=== PATIENT | male | born 1935 | race Caucasian/White ===

== ENCOUNTER → 2017-02-05 | Outpatient (CLI) | payer OTHER, MEDICARE ==
[2017-02-05 08:47] LABS: CH 32.7; CHCM 35.4; HCT 40.2 % (39.0-53.0); HDW 2.94; HGB 14.1 gm/dL (13.0-17.5); MCH 32.6 pg (25.0-35.0); MCHC 35.1 g/dL (31.0-37.0); MCV 92.7 fL (80.0-100.0); Mean Platelet Volume 7.2; RBC 4.33 m/uL (4.30-5.90); RDW 13.2 % (11.5-15.5); WBC 6.6 k/uL (3.8-10.6)
[2017-02-05 08:48] LABS: Calcium 9.2 mg/dL (8.4-10.2); Potassium 4.5 mmol/L (3.5-5.1)
== END | disposition home or self-care (01) ==
LOC: LABWHC1 07:23
PROVIDERS: ATTEND Internal Medicine Interventional Cardiology
DX: N18.9 Chronic kidney disease, unspecified (principal)
CPT/HCPCS: 36415; 80048; 85027

== ENCOUNTER 2017-02-08 11:02 | Inpatient (IN) | payer OTHER, MEDICARE ==
--- NOTE | 2017-02-08 11:42 | XR ---
EXAMINATION TYPE: XR abdomen 2V DATE OF EXAM: 02/08/2017 11:34 AM CLINICAL HISTORY: Constipation for 4 days with bloating and abdominal pain. TECHNIQUE: Single supine KUB image of the abdomen is obtained. COMPARISON: None. FINDINGS: Differential air-fluid levels are noted within gaseous and dilated loops of large bowel star suring up to 9.1 cm near the splenic flexure. Scattered air is seen within nondilated small bowel. No air is noted within the rectum or distal sigmoid colon. Dehiscence of the most inferior sternotomy wire is noted. Phleboliths are seen within the low pelvis. Degenerative changes of the lumbosacral spine and femoral acetabular joints are seen. IMPRESSION: Gaseous dilation of large bowel containing differential air-fluid levels. Findings may re late to adynamic colonic ileus versus bowel obstruction as no air is visualized within the rectal vau lt.
[2017-02-08] MEDS ORDERED: SODIUM CHLORIDE 0.9% 1,000 ML IV STA (12:29)
[2017-02-08] MEDS ORDERED: SODIUM CHLORIDE 0.9% 500 ML IV STA (12:29)
[2017-02-08 13:21] LABS: Basophils % (A) 0 %; CH 33.4; CHCM 36.6; Eosinophils % (A) 1 %; HCT 40.1 % (39.0-53.0); HDW 2.95; HGB 14.6 gm/dL (13.0-17.5); Luc # (Auto) 0.22; Luc % (Auto) 2; Lymphocytes # (A) 1.2 k/uL (1.0-4.8); Lymphocytes % (A) 13 %; MCH 33.5 pg (25.0-35.0); MCHC 36.5 g/dL (31.0-37.0); MCV 91.7 fL (80.0-100.0); Mean Platelet Volume 7.2; Monocytes # (A) 0.7 k/uL (0-1.0); Monocytes % (A) 8 %; Neutrophils # (A) 6.7 k/uL (1.3-7.7); Neutrophils % (A) 75 %; RBC 4.37 m/uL (4.30-5.90); RDW 13.5 % (11.5-15.5); WBC 8.8 k/uL (3.8-10.6); WBC (Perox) 9.02
[2017-02-08 13:31] LABS: INR 2.3 (<1.2); Prothrombin Time 22.1 sec (9.0-12.0)
[2017-02-08 13:33] LABS: Amylase 34 U/L (30-110); Anion Gap 9 mmol/L; Calcium 9.4 mg/dL (8.4-10.2); Carbon Dioxide 23 mmol/L (22-30); Chloride 104 mmol/L (98-107); Glucose 102 mg/dL (74-99); Non-African American GFR(MDRD) >60 (>60 ml/min/1.73 sqM); Sodium 136 mmol/L (137-145); Total Bilirubin 1.2 mg/dL (0.2-1.3); Total Protein 6.7 g/dL (6.3-8.2)
[2017-02-08 13:47] LABS: Appearance,Urine Cloudy (Clear); Bilirubin,Urine 1+ (Negative); Glucose,Urine (UA) Negative (Negative); Ketones,Urine 1+ (Negative); Leukocyte Esterase,Urine Negative (Negative); Mucus,Urine Many /hpf; Nitrite,Urine Negative (Negative); PH, Urine 5.5 (5.0-8.0); Particle Count 8425; Protein,Urine Trace (Negative); UA Billing (MACRO vs. MICRO) MICRO; WBC,Urine 1 /hpf (0-5)
[2017-02-08 14:08] LABS: Blood Urea Nitrogen 16 mg/dL (9-20); Potassium 4.9 mmol/L (3.5-5.1)
[2017-02-08 14:09] LABS: ALT 26 U/L (21-72); AST 32 U/L (17-59); Alkaline Phosphatase 65 U/L (38-126)
--- NOTE | 2017-02-08 14:49 | ED ---
General Adult HPI - General Chief complaint: Abdominal Pain Stated complaint: CONSTIPATION Time Seen by Provider: 02/08/17 11:14 Source: patient, family, RN notes reviewed Mode of arrival: wheelchair Limitations: no limitations - History of Present Illness Initial comments: Chief complaint history of present illness this is an 81-year-old male here with family. 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 Patient reports last bowel movement was 5 days ago. Since then he had a fleets enema yesterday and only this fleets enema came out possible very small amount of gas and stool. He's not had any bowel gas since then. Patient is not complaining of abdominal pain. He is significantly bloated. Decreased appetite. Not able to eat or drink anything. - Related Data Home Medications Medication Instructions Recorded Confirmed Aspirin EC [Ecotrin Low Dose] 81 mg PO DAILY 01/15/16 02/08/17 Furosemide [Lasix] 40 mg PO DAILY 01/15/16 02/08/17 Losartan [Cozaar] 50 mg PO DAILY 01/15/16 02/08/17 Pravastatin Sodium [Pravachol] 40 mg PO DAILY 01/15/16 02/08/17 Metoprolol Tartrate [Lopressor] 50 mg PO DAILY 02/08/17 02/08/17 Nitroglycerin Sl Tabs [Nitrostat] 0.4 mg SUBLINGUAL Q5M PRN 02/08/17 02/08/17 Spironolactone [Aldactone] 25 mg PO DAILY 02/08/17 02/08/17 Warfarin [Coumadin] 5 mg PO SUWESA 02/08/17 02/08/17 Warfarin [Coumadin] 7.5 mg PO MOTUTHFR 02/08/17 02/08/17 Previous Rx's Medication Instructions Recorded Meclizine [Antivert] 25 mg PO TID PRN #0 tab 01/16/16 Allergies Allergy/AdvReac Type Severity Reaction Status Date / Time morphine Allergy Anaphylaxis Verified 02/08/17 12:01 Sulfa (Sulfonamide Allergy Anaphylaxis Verified 02/08/17 12:01 Antibiotics) Review of Systems ROS Statement: Those systems with pertinent positive or pertinent negative responses have been documented in the HPI. Review of systems no complaint of headache chest pain or shortness of breath. The patient has significantly bloated abdomen. Patient reports this happened several times in the past but usually days or so after having had surgery on the medications associated with that he's not had any surgery since last March. The only abdominal surgery the patient's had his appendectomy many decades ago. Otherwise patient's denying any neuro deficits. All systems are reviewed. Past medical problems coronary artery disease with 3 or 4 past MIs, is also had a TIA, CHF, CVA most was resolved other TIAs. Hyperlipidemia, hypertension. The patient also has prostate cancer for the past 3 years and this is just being watched because of his advanced age. The patient's surgeries include appendectomy, coronary bypass, multiple heart catheterizations with 10 stents. Patient has ALLERGIES to sulfa and morphine. He quit smoking over 50 years ago denies alcohol use. ROS Other: All systems not noted in ROS Statement are negative. 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 Last Myocardial Infarction Date:: 2001 History of Any Multi-Drug Resistant Organisms: None Reported Past Surgical History: Appendectomy, Coronary Bypass/CABG, Heart Catheterization With Stent Additional Past Surgical History / Comment(s): 10 PLUS STENTS, 1988 CABG with 3 vessel bypass, hemorrhoidectomy, multiple back surgeries, back epidural injections, L eye laser sx due to "something burst in that eye", Past Anesthesia/Blood Transfusion Reactions: No Reported Reaction Date of Last Stent Placement:: 2008 Past Psychological History: Depression Smoking Status: Former smoker Past Alcohol Use History: Occasional Past Drug Use History: None Reported - Past Family History Father Family Medical History: Myocardial Infarction (MT) Additional Family Medical History / Comment(s): Father of a MT in his 40' s. Pt's grandfather on his dad's side in his 40's of a MT Mother Family Medical History: Coronary Artery Disease (CAD) Additional Family Medical History / Comment(s): Mother lived into her 90's. General Exam - General Exam Comments Initial Comments: General: The patient is awake and alert, in no distress, and does not appear acutely ill. Sent here because of no bowel movement for 4 days. The patient significantly bloated but not complaining of abdominal pain. He's not had much to eat or drink since yesterday. Vital signs temperature 97.0 pulse 88 respiratory rate 16 pulse ox 98% room air blood pressure 146/79 Eye: Pupils are equal, round and reactive to light, extra-ocular movements are intact ; there is normal conjunctiva bilaterally. No signs of icterus. Ears, nose, mouth and throat: There are moist mucous membranes and no oral lesions. Neck: The neck is supple, there is no tenderness Cardiovascular: There is a regular rate and rhythm. No murmur, rub or gallop is appreciated. Respiratory: Lungs are clear to auscultation, respirations are non-labored, breath sounds are equal. No wheezes, stridor, rales, or rhonchi. Gastrointestinal: Giving only distended. Tympanitic. No bowel sounds appreciated. Back: No back pain Musculoskeletal: Normal ROM, no tenderness, There is no pedal edema. There is no calf tenderness or swelling. Sensation intact. Pulses equal bilaterally 2+. The mother last week and significant edema today. Neurological: CN II-XII intact, There are no obvious motor or sensory deficits. Coordination appears grossly intact. Speech is normal. Skin: Skin is warm and dry and no rashes or lesions are noted. Limitations: no limitations Course Vital Signs 02/08/17 02/08/17 11:03 13:46 Temperature 97.0 F L 97.7 F Pulse Rate 88 69 Respiratory 16 18 Rate Blood Pressure 146/79 141/71 O2 Sat by Pulse 98 98 Oximetry Medical Decision Making - Medical Decision Making Medical decision making the patient's white count 8.8 hemoglobin 14 hematocrit of 40 with an INR 2.3. Potassium 4.9 with a BUN 16 creatinine 1.10 the GFR greater than 60. Glucose 12. Urine is clean no signs of infection. I asked the family if they would allow Dr. dr eubanks to evaluate the x-rays while in emergency room they said that was okay. Dr. Argueta he reviewed the x- rays showing evidence of atonic ileus or obstruction. He recommends patient be admitted. NG tube. He was also asked patient to have an enema which the patient states has worked in the past and that will be performed. The patient be then admitted to his service. The NG tube. The patient states at this time under no circumstances would allow an NG tube as she's had them in the past month or 2 irritating and painful he has not wanted. Currently no nausea no vomiting. - Lab Data Result diagrams: 02/08/17 12:50 02/08/17 12:50 Lab Results 02/08/17 02/08/17 02/08/17 Range/Units 12:50 12:50 12:50 WBC 8.8 (3.8-10.6) k/uL RBC 4.37 (4.30-5.90) m/uL Hgb 14.6 (13.0-17.5) gm/dL Hct 40.1 (39.0-53.0) % MCV 91.7 (80.0-100.0) fL MCH 33.5 (25.0-35.0) pg MCHC 36.5 (31.0-37.0) g/dL RDW 13.5 (11.5-15.5) % Plt Count 216 (150-450) k/uL Neutrophils % 75 % Lymphocytes % 13 % Monocytes % 8 % Eosinophils % 1 % Basophils % 0 % Neutrophils # 6.7 (1.3-7.7) k/uL Lymphocytes # 1.2 (1.0-4.8) k/uL Monocytes # 0.7 (0-1.0) k/uL Eosinophils # 0.0 (0-0.7) k/uL Basophils # 0.0 (0-0.2) k/uL PT (9.0-12.0) sec INR (<1.2) Sodium 136 L (137-145) mmol/L Potassium 4.9 (3.5-5.1) mmol/L Chloride 104 (98-107) mmol/L Carbon Dioxide 23 (22-30) mmol/L Anion Gap 9 mmol/L BUN 16 (9-20) mg/dL Creatinine 1.01 (0.66-1.25) mg/dL Est GFR (MDRD) Af Amer >60 (>60 ml/min/1.73 sqM) Est GFR (MDRD) Non-Af >60 (>60 ml/min/1.73 sqM) Glucose 102 H (74-99) mg/dL Plasma Lactic Acid Sergio 1.2 (0.7-2.0) mmol/L Calcium 9.4 (8.4-10.2) mg/dL Total Bilirubin 1.2 (0.2-1.3) mg/dL AST 32 (17-59) U/L ALT 26 (21-72) U/L Alkaline Phosphatase 65 (38-126) U/L Total Protein 6.7 (6.3-8.2) g/dL Albumin 4.1 (3.5-5.0) g/dL Amylase 34 (30-110) U/L Lipase 75 (23-300) U/L Urine Color Urine Appearance (Clear) Urine pH (5.0-8.0) Ur Specific [place] (1.001-1.035) Urine Protein (Negative) Urine Glucose (UA) (Negative) Urine Ketones (Negative) Urine Blood (Negative) Urine Nitrite (Negative) Urine Bilirubin (Negative) Urine Urobilinogen (<2.0) mg/dL Ur Leukocyte Esterase (Negative) Urine WBC (0-5) /hpf Hyaline Casts (0-2) /lpf Urine Mucus (None) /hpf 02/08/17 02/08/17 Range/Units 12:50 13:32 WBC (3.8-10.6) k/uL RBC (4.30-5.90) m/uL Hgb (13.0-17.5) gm/dL Hct (39.0-53.0) % MCV (80.0-100.0) fL MCH (25.0-35.0) pg MCHC (31.0-37.0) g/dL RDW (11.5-15.5) % Plt Count (150-450) k/uL Neutrophils % % Lymphocytes % % Monocytes % % Eosinophils % % Basophils % % Neutrophils # (1.3-7.7) k/uL Lymphocytes # (1.0-4.8) k/uL Monocytes # (0-1.0) k/uL Eosinophils # (0-0.7) k/uL Basophils # (0-0.2) k/uL PT 22.1 H (9.0-12.0) sec INR 2.3 H (<1.2) Sodium (137-145) mmol/L Potassium (3.5-5.1) mmol/L Chloride (98-107) mmol/L Carbon Dioxide (22-30) mmol/L Anion Gap mmol/L BUN (9-20) mg/dL Creatinine (0.66-1.25) mg/dL Est GFR (MDRD) Af Amer (>60 ml/min/1.73 sqM) Est GFR (MDRD) Non-Af (>60 ml/min/1.73 sqM) Glucose (74-99) mg/dL Plasma Lactic Acid Sergio (0.7-2.0) mmol/L Calcium (8.4-10.2) mg/dL Total Bilirubin (0.2-1.3) mg/dL AST (17-59) U/L ALT (21-72) U/L Alkaline Phosphatase (38-126) U/L Total Protein (6.3-8.2) g/dL Albumin (3.5-5.0) g/dL Amylase (30-110) U/L Lipase (23-300) U/L Urine Color Yellow Urine Appearance Cloudy (Clear) Urine pH 5.5 (5.0-8.0) Ur Specific [place] 1.020 (1.001-1.035) Urine Protein Trace H (Negative) Urine Glucose (UA) Negative (Negative) Urine Ketones 1+ H (Negative) Urine Blood Negative (Negative) Urine Nitrite Negative (Negative) Urine Bilirubin 1+ H (Negative) Urine Urobilinogen 2.0 (<2.0) mg/dL Ur Leukocyte Esterase Negative (Negative) Urine WBC 1 (0-5) /hpf Hyaline Casts 4 H (0-2) /lpf Urine Mucus Many H (None) /hpf Disposition Clinical Impression: Abdominal pain Disposition: ADMITTED IP TO THIS HOSP Condition: Fair Referrals: None,Stated [Primary Care Provider] - 1-2 days
[2017-02-08] MEDS ORDERED: NALOXONE 0.4 MG/ML 1 ML VIAL IV PRN (14:52)
[2017-02-08] MEDS ORDERED: MECLIZINE 25 MG TAB PO PRN (18:44)
[2017-02-08] MEDS: SODIUM CHLORIDE 0.9% 1,000 ML IV SCH (19:54)
[2017-02-09] MEDS: SODIUM CHLORIDE 0.9% 1,000 ML IV SCH ×3 (03:03→16:38)
[2017-02-09 07:48] LABS: Basophils % (A) 0 %; CH 33.4; CHCM 35.3; Eosinophils % (A) 1 %; HCT 40.6 % (39.0-53.0); HGB 13.8 gm/dL (13.0-17.5); Luc # (Auto) 0.15; Luc % (Auto) 2; Lymphocytes # (A) 0.8 k/uL (1.0-4.8); Lymphocytes % (A) 11 %; MCH 32.4 pg (25.0-35.0); MCV 95.3 fL (80.0-100.0); Mean Platelet Volume 7.4; Monocytes # (A) 0.6 k/uL (0-1.0); Monocytes % (A) 8 %; Neutrophils # (A) 5.8 k/uL (1.3-7.7); Neutrophils % (A) 78 %; RBC 4.26 m/uL (4.30-5.90); WBC 7.4 k/uL (3.8-10.6); WBC (Perox) 7.07
[2017-02-09 08:16] LABS: ALT 31 U/L (21-72); AST 18 U/L (17-59); Alkaline Phosphatase 64 U/L (38-126); Anion Gap 11 mmol/L; Blood Urea Nitrogen 14 mg/dL (9-20); Calcium 8.9 mg/dL (8.4-10.2); Carbon Dioxide 20 mmol/L (22-30); Chloride 109 mmol/L (98-107); Glucose 94 mg/dL (74-99); Non-African American GFR(MDRD) >60 (>60 ml/min/1.73 sqM); Potassium 3.7 mmol/L (3.5-5.1); Sodium 140 mmol/L (137-145); Total Bilirubin 0.9 mg/dL (0.2-1.3); Total Protein 5.7 g/dL (6.3-8.2)
[2017-02-09] MEDS ORDERED: BENZOCAINE SPRAY 1 SPRAY CAN ONE (08:44)
[2017-02-09] MEDS ORDERED: LOSARTAN 50 MG TAB PO SCH (09:00)
[2017-02-09] MEDS ORDERED: FUROSEMIDE 40 MG TAB PO SCH (09:00)
[2017-02-09] MEDS: METOPROLOL TARTRATE 50 MG TAB PO SCH (09:30)
[2017-02-09] MEDS: PRAVASTATIN SODIUM 40 MG TAB PO SCH (09:31)
[2017-02-09] MEDS: SPIRONOLACTONE 25 MG TAB PO SCH (09:31)
[2017-02-09 10:44] VITALS: BMI 34.2
[2017-02-09] MEDS ORDERED: LIDOCAINE 4% LTA KIT (4 ML) TOPICAL ONE (10:59)
[2017-02-09] MEDS ORDERED: IOHEXOL 350 MG/ML 25 ML BOTTLE (ORAL USE) PO PRN (11:04)
[2017-02-09] MEDS ORDERED: RX INFO: IV CONTRAST WAS GIVEN 1 EACH MISC MISCELLANE PRN (11:04)
[2017-02-09] MEDS ORDERED: BENZOCAINE SPRAY 1 SPRAY CAN MUCOUS MEM PRN (11:07)
[2017-02-09] MEDS ORDERED: LIDOCAINE VISCOUS 2% 15 ML CUP MUCOUS MEM ONE (11:30)
--- NOTE | 2017-02-09 12:22 | P.GSHP ---
History of Present Illness H&P Date: 02/09/17 Chief Complaint: Abdominal pain 81-year-old male presented on the day of admission to the emergency room to be evaluated for abdominal distention with constipation no bowel movement in 4 days. Patient states that "the only thing that was new was 5 days ago he decided that he would start losing weight and put himself on a low-fat diet decreased his caloric intake noted after doing this that he hadn't had a bowel movement in days. 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 Patient additionally states that he did give himself a fleets enema the day before and only a small amount gas with a small stool came out no bowel movement since . Patient states he feels bloated with abdominal discomfort. Additionally patient states he has no appetite not been eating or drinking adequately last several days in the emergency room an abdominal x-ray was obtained findings suggest possible adynamic colonic ileus or bowel obstruction could not be ruled out Patient has a past medical history significant for coronary artery disease prior coronary artery bypass grafting with prior coronary stenting, with a recent in 2016 CVA involving the right frontal lobe,, hypertension, moderate pulmonary hypertension, carotid artery disease involving the right carotid. Prior surgical history multiple back surgeries, hemorrhoidectomy, coronary artery bypass grafting. - Review of Systems Comment: Essentially unremarkable except as mentioned in the present illness Past Medical History Past Medical History: Coronary Artery Disease (CAD), Cancer, Chest Pain / Angina , Heart Failure, CVA/TIA, Eye Disorder, Hyperlipidemia, Hypertension, Myocardial Infarction (HI), Osteoarthritis (OA) Additional Past Medical History / Comment(s): 2009 TIA, HI's-at least 5, prostate cancer being monitored-recent PSA was significantly elevated, chronic low back pain,"loss of vision lt eye" "something burst in that eye", cataracts bilateral rotator cuff dx, L hip disease, DJD. Last Myocardial Infarction Date:: 2001 History of Any Multi-Drug Resistant Organisms: None Reported Past Surgical History: Appendectomy, Coronary Bypass/CABG, Heart Catheterization With Stent Additional Past Surgical History / Comment(s): 10 PLUS STENTS, 1988 CABG with 3 vessel bypass, hemorrhoidectomy, multiple back surgeries, back epidural injections, L eye laser sx due to "something burst in that eye", rt carotid endarterectomy Past Anesthesia/Blood Transfusion Reactions: No Reported Reaction Date of Last Stent Placement:: 2008 Smoking Status: Former smoker - Past Family History Father Family Medical History: Myocardial Infarction (HI) Additional Family Medical History / Comment(s): Father of a HI in his 40' s. Pt's grandfather on his dad's side in his 40's of a HI Mother Family Medical History: Coronary Artery Disease (CAD) Additional Family Medical History / Comment(s): Mother lived into her 90's. Medications and Allergies Home Medications Medication Instructions Recorded Confirmed Type Aspirin EC [Ecotrin Low Dose] 81 mg PO DAILY 01/15/16 02/08/17 History Furosemide [Lasix] 40 mg PO DAILY 01/15/16 02/08/17 History Losartan [Cozaar] 50 mg PO DAILY 01/15/16 02/08/17 History Pravastatin Sodium [Pravachol] 40 mg PO DAILY 01/15/16 02/08/17 History Meclizine [Antivert] 25 mg PO TID PRN #0 tab 01/16/16 02/08/17 Rx Metoprolol Tartrate [Lopressor] 50 mg PO DAILY 02/08/17 02/08/17 History Nitroglycerin Sl Tabs [Nitrostat] 0.4 mg SUBLINGUAL Q5M PRN 02/08/17 02/08/17 History Spironolactone [Aldactone] 25 mg PO DAILY 02/08/17 02/08/17 History Warfarin [Coumadin] 5 mg PO SUWESA 02/08/17 02/08/17 History Warfarin [Coumadin] 7.5 mg PO MOTUTHFR 02/08/17 02/08/17 History Allergies Allergy/AdvReac Type Severity Reaction Status Date / Time morphine Allergy Anaphylaxis Verified 02/08/17 12:01 Sulfa (Sulfonamide Allergy Anaphylaxis Verified 02/08/17 12:01 Antibiotics) Surgical - Exam Vital Signs Temp Pulse Resp BP Pulse Ox 97.0 F L 88 16 146/79 98 02/08/17 11:03 02/08/17 11:03 02/08/17 11:03 02/08/17 11:03 02/08/17 11:03 GENERAL APPEARANCE: 81-year-old male patient is alert, oriented, in no acute distress continues to report having abdominal discomfort. VITAL SIGNS reviewed: HEENT: Head is normocephalic and atraumatic. Pupils are equal and reactive. The nares are patent. Oropharynx is clear without lesions. NECK: Supple without lymphadenopathy. Traches midline. HEART: S1, S2. Regular rate and rhythm. No murmur noted denying chest pain LUNGS: No crackles or wheezes are heard. Adequate air movement bilaterally sats on room air 98% ABDOMEN: Slight tenderness firm distended few hypoactive bowel tones No peritoneal signs. No palpable organomegaly or masses. EXTREMITIES: Normal skin color and turgor. No cyanosis, rash, bilateral nonpitting lower extremity edema. Radial pedal pulses are 2/4 bilaterally. NEUROLOGICAL: No focal deficits. Strength and sensation are grossly intact. Results - Labs 02/09/17 07:23 02/09/17 07:23 Abnormal Lab Results - Last 24 Hours (Table) 02/08/17 02/08/17 02/08/17 Range/Units 12:50 12:50 13:32 RBC (4.30-5.90) m/uL Lymphocytes # (1.0-4.8) k/uL PT 22.1 H (9.0-12.0) sec INR 2.3 H (<1.2) Sodium 136 L (137-145) mmol/L Chloride (98-107) mmol/L Carbon Dioxide (22-30) mmol/L Glucose 102 H (74-99) mg/dL Total Protein (6.3-8.2) g/dL Urine Protein Trace H (Negative) Urine Ketones 1+ H (Negative) Urine Bilirubin 1+ H (Negative) Hyaline Casts 4 H (0-2) /lpf Urine Mucus Many H (None) /hpf 02/09/17 02/09/17 Range/Units 07:23 07:23 RBC 4.26 L (4.30-5.90) m/uL Lymphocytes # 0.8 L (1.0-4.8) k/uL PT (9.0-12.0) sec INR (<1.2) Sodium (137-145) mmol/L Chloride 109 H (98-107) mmol/L Carbon Dioxide 20 L (22-30) mmol/L Glucose (74-99) mg/dL Total Protein 5.7 L (6.3-8.2) g/dL Urine Protein (Negative) Urine Ketones (Negative) Urine Bilirubin (Negative) Hyaline Casts (0-2) /lpf Urine Mucus (None) /hpf Microbiology - Last 24 Hours (Table) 02/08/17 13:32 Urine Culture - Preliminary Urine,Voided Diabetes panel 02/08/17 02/09/17 Range/Units 12:50 07:23 Sodium 136 L 140 (137-145) mmol/L Potassium 4.9 3.7 (3.5-5.1) mmol/L Chloride 104 109 H (98-107) mmol/L Carbon Dioxide 23 20 L (22-30) mmol/L BUN 16 14 (9-20) mg/dL Creatinine 1.01 0.99 (0.66-1.25) mg/dL Glucose 102 H 94 (74-99) mg/dL Calcium 9.4 8.9 (8.4-10.2) mg/dL AST 32 18 (17-59) U/L ALT 26 31 (21-72) U/L Alkaline Phosphatase 65 64 (38-126) U/L Total Protein 6.7 5.7 L (6.3-8.2) g/dL Albumin 4.1 3.5 (3.5-5.0) g/dL Calcium panel 02/08/17 02/09/17 Range/Units 12:50 07:23 Calcium 9.4 8.9 (8.4-10.2) mg/dL Albumin 4.1 3.5 (3.5-5.0) g/dL Pituitary panel 02/08/17 02/09/17 Range/Units 12:50 07:23 Sodium 136 L 140 (137-145) mmol/L Potassium 4.9 3.7 (3.5-5.1) mmol/L Chloride 104 109 H (98-107) mmol/L Carbon Dioxide 23 20 L (22-30) mmol/L BUN 16 14 (9-20) mg/dL Creatinine 1.01 0.99 (0.66-1.25) mg/dL Glucose 102 H 94 (74-99) mg/dL Calcium 9.4 8.9 (8.4-10.2) mg/dL Adrenal panel 02/08/17 02/09/17 Range/Units 12:50 07:23 Sodium 136 L 140 (137-145) mmol/L Potassium 4.9 3.7 (3.5-5.1) mmol/L Chloride 104 109 H (98-107) mmol/L Carbon Dioxide 23 20 L (22-30) mmol/L BUN 16 14 (9-20) mg/dL Creatinine 1.01 0.99 (0.66-1.25) mg/dL Glucose 102 H 94 (74-99) mg/dL Calcium 9.4 8.9 (8.4-10.2) mg/dL Total Bilirubin 1.2 0.9 (0.2-1.3) mg/dL AST 32 18 (17-59) U/L ALT 26 31 (21-72) U/L Alkaline Phosphatase 65 64 (38-126) U/L Total Protein 6.7 5.7 L (6.3-8.2) g/dL Albumin 4.1 3.5 (3.5-5.0) g/dL Assessment and Plan Plan: Impression Present on admission diffuse abdominal pain with bloating with constipation suspect likely due to an ileus not ruled out Obesity BMI 34 Known coronary artery disease with prior coronary artery bypass grafting History of a CVA 2015 no deficit Chronic diastolic heart failure no evidence of an exacerbation Moderate to severe pulmonary hypertension Known carotid artery disease right coronary Abdominal x-ray on admission findings suggest likely adynamic colonic ileus or bowel obstruction not ruled out Hypertension essential Plan Nasal gastric tube to be placed connected to suction intermittent patient has agreed Repeat fleets enema now CAT scan abdomen and pelvis 4 hour prep oral and IV contrast Repeat labs in the morning DVT and GI prophylaxis Hold Coumadin for now Consult cardiology and medicine service await further recommendations follow up on the pending CAT scan of the abdomen pelvis further recommendations pending studies The above impression and plan of care have been discussed and directed by signing physician. Elyssa Murray nurse practitioner acting as scribe for signing physician.
[2017-02-09] MEDS ORDERED: IOHEXOL 350 MG/ML 25 ML BOTTLE (ORAL USE) PO ONE (12:27)
[2017-02-09] MEDS: PANTOPRAZOLE 40 MG/10 ML VIAL IV SCH (12:37)
[2017-02-09] MEDS: HEPARIN SODIUM,PORCINE 5,000 UNIT/ML 1 ML VIAL SQ SCH ×2 (12:38→16:39)
[2017-02-09] MEDS ORDERED: SODIUM CHLORIDE 0.9% 1,000 ML IV SCH (14:15)
--- NOTE | 2017-02-09 18:01 | CT ---
EXAMINATION TYPE: CT abdomen pelvis w con DATE OF EXAM: 02/09/2017 COMPARISON: 05/06/2012 HISTORY: Abdominal pain and distention. CT DLP: 1713.50 mGycm Automated exposure control for dose reduction was used. TECHNIQUE: Helical acquisition of images was performed from the lung bases through the pelvis. CONTRAST: Performed with Oral Contrast and with IV Contrast, patient injected with 100 mL of Omnipaque 300. FINDINGS: Lung bases are clear of consolidation. There is no pleural effusion. Liver shows no focal defect. Spl een and pancreas appear normal. Gallbladder appears normal. Bile ducts are not dilated. There is no adrenal mass. There is mild symmetric renal cortical atrophy. There is a [address] on the lateral right kidney. There is no hydronephrosis. Abdominal aorta is atheromatous. There is no retroperitoneal adenopathy. There is no ascites. There are some gas and fluid-filled distended lo ops of large bowel in the mid abdomen. There is fluid down to the rectum. Bladder distends smoothly. There are prostatic calcifications. There is no sign of a pelvic mass. There is no sign of appendicit is. Small bowel has normal size. There is moderate multilevel spondylosis in the lumbar spine. There is multilevel laminectomy defect in the mid and lower lumbar spine. IMPRESSION: THERE IS EVIDENCE OF LARGE BOWEL ILEUS THAT IS NEW COMPARED TO OLD EXAM. LARGE BOWEL FLUID LEVELS CON SISTENT WITH DIARRHEA. NO FREE AIR. RIGHT RENAL CORTICAL CYST IS INCREASED COMPARED TO OLD CT SCAN. M ODERATE MULTILEVEL LUMBAR SPONDYLOSIS. THE ENTIRE LIVER IS NOT INCLUDED ON THE EXAM. MILD CARDIOMEGAL Y.
[2017-02-10] MEDS: HEPARIN SODIUM,PORCINE 5,000 UNIT/ML 1 ML VIAL SQ SCH ×4 (00:32→23:40)
[2017-02-10 07:47] LABS: Basophils % (A) 0 %; CH 33.7; Eosinophils % (A) 0 %; HCT 41.2 % (39.0-53.0); HDW 2.96; HGB 14.2 gm/dL (13.0-17.5); Luc % (Auto) 3; Lymphocytes # (A) 1.1 k/uL (1.0-4.8); Lymphocytes % (A) 14 %; MCH 32.5 pg (25.0-35.0); MCHC 34.5 g/dL (31.0-37.0); MCV 94.2 fL (80.0-100.0); Mean Platelet Volume 7.9; Monocytes # (A) 0.8 k/uL (0-1.0); Monocytes % (A) 10 %; Neutrophils # (A) 5.8 k/uL (1.3-7.7); Neutrophils % (A) 73 %; RBC 4.38 m/uL (4.30-5.90); RDW 14.5 % (11.5-15.5); WBC (Perox) 7.78
[2017-02-10 08:01] LABS: ALT 31 U/L (21-72); AST 19 U/L (17-59); Alkaline Phosphatase 71 U/L (38-126); Anion Gap 12 mmol/L; Blood Urea Nitrogen 14 mg/dL (9-20); Carbon Dioxide 19 mmol/L (22-30); Chloride 109 mmol/L (98-107); Glucose 81 mg/dL (74-99); Non-African American GFR(MDRD) >60 (>60 ml/min/1.73 sqM); Potassium 3.2 mmol/L (3.5-5.1); Sodium 140 mmol/L (137-145); Total Bilirubin 0.9 mg/dL (0.2-1.3)
[2017-02-10] MEDS: PANTOPRAZOLE 40 MG/10 ML VIAL IV SCH (08:01)
[2017-02-10] MEDS: SODIUM CHLORIDE 0.9% 1,000 ML IV SCH (08:01)
[2017-02-10] MEDS ORDERED: FUROSEMIDE 40 MG TAB PO SCH (09:00)
--- NOTE | 2017-02-10 09:42 | P.CRDCN ---
History of Present Illness Consult date: 02/09/17 History of present illness: This is an 81-yr-old male with past medical history significant for CAD with CABG in 1988 PHELAN-LAD, SVG-RCA and SVG-LCX, HTN, HLD, atrial fibrillation on jail anticoagulation with coumadin, systolic heart failure, CVA and obesity. He presents to the hospital with c/o increased abdominal distention, pain and constipation x4 days. He states he really started feeling poorly on Wednesday of last week with decreased appetite. Over the past few days his only oral intake was water and yogurt. He has no PCP but follows very regularly with Dr. Madrid. He saw him in the office yesterday and was advised to come to the hospital for further evaluation of his abdomen. His cardiac medications include aldactone 25mg daily, aspirin 81mg daily, lasix 40mg daily, losartan 50mg daily , metoprolol 50mg daily, pravastatin 40mg daily and coumadin 5mg daily. His most recent echo was done in the office 11/2016 reveals impaired LV function with ejection fraction 40%. Lexiscan performed 10/2016 indicates small area of anterior ischemia. Last cath 2004 showed patent PHELAN-LAD, occluded SVG-RCA and LCX. At that time he underwent stenting of distal left main and proximal ramus. EKG has been ordered. Review of Systems Extensive ROS complete, negative except listed in HPI. Past Medical History Past Medical History: Coronary Artery Disease (CAD), Cancer, Chest Pain / Angina , Heart Failure, CVA/TIA, Eye Disorder, Hyperlipidemia, Hypertension, Myocardial Infarction ([place]), Osteoarthritis (OA) Additional Past Medical History / Comment(s): 2009 TIA, [place]'s-at least 5, prostate cancer being monitored-recent PSA was significantly elevated, chronic low back pain,"loss of vision lt eye" "something burst in that eye", cataracts bilateral rotator cuff dx, L hip disease, DJD. Last Myocardial Infarction Date:: 2001 History of Any Multi-Drug Resistant Organisms: None Reported Past Surgical History: Appendectomy, Coronary Bypass/CABG, Heart Catheterization With Stent Additional Past Surgical History / Comment(s): 10 PLUS STENTS, 1988 CABG with 3 vessel bypass, hemorrhoidectomy, multiple back surgeries, back epidural injections, L eye laser sx due to "something burst in that eye", rt carotid endarterectomy Past Anesthesia/Blood Transfusion Reactions: No Reported Reaction Date of Last Stent Placement:: 2008 Smoking Status: Former smoker - Past Family History Father Family Medical History: Myocardial Infarction ([place]) Additional Family Medical History / Comment(s): Father of a [place] in his 40' s. Pt's grandfather on his dad's side in his 40's of a [place] Mother Family Medical History: Coronary Artery Disease (CAD) Additional Family Medical History / Comment(s): Mother lived into her 90's. Medications and Allergies Home Medications Medication Instructions Recorded Confirmed Type Aspirin EC [Ecotrin Low Dose] 81 mg PO DAILY 01/15/16 02/08/17 History Furosemide [Lasix] 40 mg PO DAILY 01/15/16 02/08/17 History Losartan [Cozaar] 50 mg PO DAILY 01/15/16 02/08/17 History Pravastatin Sodium [Pravachol] 40 mg PO DAILY 01/15/16 02/08/17 History Meclizine [Antivert] 25 mg PO TID PRN #0 tab 01/16/16 02/08/17 Rx Metoprolol Tartrate [Lopressor] 50 mg PO DAILY 02/08/17 02/08/17 History Nitroglycerin Sl Tabs [Nitrostat] 0.4 mg SUBLINGUAL Q5M PRN 02/08/17 02/08/17 History Spironolactone [Aldactone] 25 mg PO DAILY 02/08/17 02/08/17 History Warfarin [Coumadin] 5 mg PO SUWESA 02/08/17 02/08/17 History Warfarin [Coumadin] 7.5 mg PO MOTUTHFR 02/08/17 02/08/17 History Allergies Allergy/AdvReac Type Severity Reaction Status Date / Time morphine Allergy Anaphylaxis Verified 02/08/17 12:01 Sulfa (Sulfonamide Allergy Anaphylaxis Verified 02/08/17 12:01 Antibiotics) Physical Exam Vitals: Vital Signs Temp Pulse Pulse Resp BP BP Pulse Ox 02/09/17 08:56 98 02/09/17 07:00 97.6 F 91 16 144/80 95 02/09/17 00:20 97.0 F L 86 16 126/59 96 02/09/17 00:18 97.0 F L 86 16 126/59 96 02/08/17 19:59 97.1 F L 81 16 132/71 96 02/08/17 16:19 97.5 F L 73 16 166/90 99 02/08/17 15:03 78 19 123/67 94 L Intake and Output 02/08/17 02/09/17 02/09/17 22:59 06:59 14:59 Intake Total 250 800 Balance 250 800 Intake: Intake, IV Titration 800 Amount Sodium Chloride 0.9% 1, 800 000 ml @ 100 mls/hr IV . Q10H [facility] Rx#:[id number] Oral 250 Other: # Voids 1 # Bowel Movements 1 Weight 111.13 kg Patient Weight 02/10/17 06:59 Weight 111.13 kg GENERAL: This is a 81-year-old male in no apparent distress at the time of my examination. Flat affect, guarded due to NG discomfort. HEENT: Head is atraumatic, normocephalic. Pupils are equal, round. Sclerae anicteric. Conjunctivae are clear. Mucous membranes of the mouth are moist. Neck is supple. There is no jugular venous distention. No carotid bruit is heard. NG tube in place. LUNGS: Clear to auscultation no wheezes, rales or rhonchi. No chest wall tenderness is noted on palpation or with deep breathing. HEART: Regular rate and rhythm without murmurs, rubs or gallops. S1 and S2 heard. ABDOMEN: Firm, distended, tympanic, nontender. EXTREMITIES: 1+ peripheral pulses with evidence of b/l 1+ pitting lower extremity edema and no calf tenderness noted. All 10 digits on hands appear swollen. Pt states they are more so than usual and tight feeling. NEUROLOGIC: Patient is awake, alert and oriented x3. Results 02/10/17 06:56 02/10/17 06:56 Cardiac Enzymes 02/09/17 Range/Units 07:23 AST 18 (17-59) U/L CBC 02/09/17 Range/Units 07:23 WBC 7.4 (3.8-10.6) k/uL RBC 4.26 L (4.30-5.90) m/uL Hgb 13.8 (13.0-17.5) gm/dL Hct 40.6 (39.0-53.0) % Plt Count 201 (150-450) k/uL Comprehensive Metabolic Panel 02/09/17 Range/Units 07:23 Sodium 140 (137-145) mmol/L Potassium 3.7 (3.5-5.1) mmol/L Chloride 109 H (98-107) mmol/L Carbon Dioxide 20 L (22-30) mmol/L BUN 14 (9-20) mg/dL Creatinine 0.99 (0.66-1.25) mg/dL Glucose 94 (74-99) mg/dL Calcium 8.9 (8.4-10.2) mg/dL AST 18 (17-59) U/L ALT 31 (21-72) U/L Alkaline Phosphatase 64 (38-126) U/L Total Protein 5.7 L (6.3-8.2) g/dL Albumin 3.5 (3.5-5.0) g/dL Current Medications Generic Name Dose Route Start Last Admin Trade Name Freq PRN Reason Stop Dose Admin Benzocaine 1 spray 02/09/17 11:07 02/09/17 12:36 Hurricaine [place] MUCOUS MEM 1 spray QID PRN Administration Mouth Irritation Heparin Sodium (Porcine) 5,000 unit 02/09/17 11:15 02/09/17 12:38 Heparin SQ 5,000 unit Q8HR [facility] Administration Sodium Chloride 1,000 mls @ 100 mls/hr 02/09/17 14:15 Saline 0.9% IV .Q10H [facility] Iohexol 25 ml 02/09/17 11:04 02/09/17 12:59 Omnipaque 350 Mg/Ml (For Oral Use) PO 02/10/17 11:06 25 ml Q60M PRN Administration CT Scan Meclizine HCl 25 mg 02/08/17 18:44 Antivert PO TID PRN dizziness Metoprolol Tartrate 50 mg 02/09/17 09:00 02/09/17 09:30 Lopressor PO 50 mg DAILY MIKAL Administration Miscellaneous Information 1 each 02/09/17 11:04 Rx Info: Iv Contrast Was Given MISCELLANE 02/11/17 11:06 DAILY PRN Per Protocol Naloxone HCl 0.2 mg 02/08/17 14:52 Narcan IV Q2M PRN Opioid Reversal Pantoprazole Sodium 40 mg 02/09/17 09:00 02/09/17 12:37 Protonix IV 40 mg DAILY MIKAL Administration Pravastatin Sodium 40 mg 02/09/17 09:00 02/09/17 09:31 Pravachol PO 40 mg DAILY MIKAL Administration Spironolactone 25 mg 02/09/17 09:00 02/09/17 09:31 Aldactone PO 25 mg DAILY MIKAL Administration Intake and Output 02/08/17 02/09/17 02/09/17 22:59 06:59 14:59 Intake Total 250 800 Balance 250 800 Intake: Intake, IV Titration 800 Amount Sodium Chloride 0.9% 1, 800 000 ml @ 100 mls/hr IV . Q10H [facility] Rx#:[id number] Oral 250 Other: # Voids 1 # Bowel Movements 1 Weight 111.13 kg Patient Weight 02/10/17 06:59 Weight 111.13 kg 02/09/17 07:23 02/09/17 07:23 EKG Interpretations (text) pending Assessment and Plan Plan: ASSESSMENT 1. Ileus vs bowel obstruction, surgery evaluating the patient. 2. Chronic persistent atrial fibrillation on jail anticoagulation 3. Known CAD with history of CABG 4. Chronic systolic heart failure 5. Essential hypertension 6. Dyslipidemia 7. Obesity PLAN Pt is actively passing gas and just had large bowel movement. Medications given PO route are optimal, if surgery requires strict NPO we can change to IV route. Continue to hold coumadin in case of impending surgery, restart as soon as is safely possible. IV fluids should be decreased to 50cc/hr to avoid fluid overload. Thank you kindly for this consultation. Further recommendations will be based upon clinical course. Nurse Practitioner note has been reviewed, I agree with a documented findings and plan of care. Patient was seen and examined.
--- NOTE | 2017-02-10 10:13 | P.PN ---
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 He presents to the hospital with c/o increased abdominal distention, pain and constipation x4 days. He states he really started feeling poorly on Wednesday of last week with decreased appetite. Over the past few days his only oral intake was water and yogurt. He has no PCP but follows very regularly with Dr. Madrid. He saw him in the office yesterday and was advised to come to the hospital for further evaluation of his abdomen. His cardiac medications include aldactone 25mg daily, aspirin 81mg daily, lasix 40mg daily, losartan 50mg daily , metoprolol 50mg daily, pravastatin 40mg daily and coumadin 5mg daily. His most recent echo was done in the office 11/2016 reveals impaired LV function with ejection fraction 40%. Lexiscan performed 10/2016 indicates small area of anterior ischemia. Last cath 2004 showed patent PHELAN-LAD, occluded SVG-RCA and LCX. At that time he underwent stenting of distal left main and proximal ramus. He is being seen today in follow-up. He is continuing to have small stools throughout the night. His abdomen still appears distended and firm. He states surgery plans to attempt to clamp NG tube today for trial. He continues to deny chest pain, palpitations, shortness of breath or dizziness. Objective - Vital Signs Vital signs: Vital Signs Temp 97.9 F 02/10/17 06:57 Pulse 78 02/10/17 06:57 Resp 16 02/10/17 07:45 BP 135/69 02/10/17 06:57 Pulse Ox 98 02/10/17 06:57 Intake & Output 02/09/17 02/10/17 02/10/17 18:59 06:59 18:59 Intake Total 800 Output Total 970 Balance -170 Weight 111.13 kg Intake: Intake, IV Titration 800 Amount Sodium Chloride 0.9% 1, 800 000 ml @ 50 mls/hr IV . Q20H [facility] Rx#:[id number] Output: Gastric Drainage 420 Urine 550 Other: # Voids 3 1 - Exam GENERAL: Well-appearing, well-nourished and in no acute distress. NECK: Supple without JVD or thyromegaly. LUNGS: Breath sounds clear to auscultation bilaterally. Respiration equal and unlabored. No wheezes, rales or rhonchi. HEART: Regular rate and rhythm without murmurs, rubs or gallops. S1 and S2 heard. EXTREMITIES: 1+ peripheral pulses with evidence of b/l 1+ pitting lower extremity edema and no calf tenderness noted. Swelling of the fingers is showing mild improvement. - Labs CBC & Chem 7: 02/10/17 06:56 02/10/17 06:56 Labs: Abnormal Lab Results - Last 24 Hours (Table) 02/10/17 Range/Units 06:56 Potassium 3.2 L (3.5-5.1) mmol/L Chloride 109 H (98-107) mmol/L Carbon Dioxide 19 L (22-30) mmol/L Total Protein 6.0 L (6.3-8.2) g/dL Microbiology - Last 24 Hours (Table) 02/08/17 13:32 Urine Culture - Final Urine,Voided Assessment and Plan Plan: ASSESSMENT 1. Ileus vs bowel obstruction, surgery evaluating the patient. 2. Chronic persistent atrial fibrillation on mcc anticoagulation 3. Known CAD with history of CABG 4. Chronic systolic heart failure 5. Essential hypertension 6. Dyslipidemia 7. Obesity PLAN Pt is actively passing gas and having small bowel movements. Continue with medical management. Will hold lasix today. Further recommendations will be based upon clinical course. Nurse Practitioner note has been reviewed, I agree with a documented findings and plan of care. Patient was seen and examined.
--- NOTE | 2017-02-10 12:13 | P.CONS ---
History of Present Illness - Reason for Consult Consult date: 02/10/17 History of congestive heart failure chronic diastolic dysfunction, hyperten - History of Present Illness Patient is a pleasant 81-year-old gentleman was admitted for partial small bowel resection secondary to constipation. Patient is admitted to surgical service medicine was consulted regarding recommendations for IV fluids considering his history of congestive heart failure. Patient is getting Lasix prolactin on at this time and patient is on long-term anticoagulation with Coumadin for atrial fibrillation patient has chronic diastolic dysfunction and normal ejection fraction during last admission. Patient is not in heart failure exacerbation and had NG tube output of about a liter 2 L and half because of which patient will be started on cautious hydration with lactated Ringer's. Since Coumadin is for atrial fibrillation can hold Coumadin temporarily as patient is nothing by mouth or else patient can be started on Coumadin Review of Systems REVIEW OF SYSTEMS: CONSTITUTIONAL: No fever, no malaise, no fatigue. HEENT: No recent visual problems or hearing problems. Denied any sore throat. CARDIOVASCULAR: No chest pain, orthopnea, PND, no palpitations, no syncope. PULMONARY: No shortness of breath, no cough, no hemoptysis. GASTROINTESTINAL: As described in HPI NEUROLOGICAL: No headaches, no weakness, no numbness. HEMATOLOGICAL: Denies any bleeding or petechiae. GENITOURINARY: Denies any burning micturition, frequency, or urgency. MUSCULOSKELETAL/RHEUMATOLOGICAL: Denies any joint pain, swelling, or any muscle pain. ENDOCRINE: Denies any polyuria or polydipsia. The rest of the 14-point review of systems is negative. Past Medical History Past Medical History: Coronary Artery Disease (CAD), Cancer, Chest Pain / Angina , Heart Failure, CVA/TIA, Eye Disorder, Hyperlipidemia, Hypertension, Myocardial Infarction ([place]), Osteoarthritis ([place]) Additional Past Medical History / Comment(s): 2009 TIA, [place]'s-at least 5, prostate cancer being monitored-recent PSA was significantly elevated, chronic low back pain,"loss of vision lt eye" "something burst in that eye", cataracts bilateral rotator cuff dx, L hip disease, DJD. Last Myocardial Infarction Date:: 2001 History of Any Multi-Drug Resistant Organisms: None Reported Past Surgical History: Appendectomy, Coronary Bypass/CABG, Heart Catheterization With Stent Additional Past Surgical History / Comment(s): 10 PLUS STENTS, 1988 CABG with 3 vessel bypass, hemorrhoidectomy, multiple back surgeries, back epidural injections, L eye laser sx due to "something burst in that eye", rt carotid endarterectomy Past Anesthesia/Blood Transfusion Reactions: No Reported Reaction Date of Last Stent Placement:: 2008 Smoking Status: Former smoker - Past Family History Father Family Medical History: Myocardial Infarction ([place]) Additional Family Medical History / Comment(s): Father of a [place] in his 40' s. Pt's grandfather on his dad's side in his 40's of a [place] Mother Family Medical History: Coronary Artery Disease (CAD) Additional Family Medical History / Comment(s): Mother lived into her 90's. Medications and Allergies Home Medications Medication Instructions Recorded Confirmed Type Aspirin EC [Ecotrin Low Dose] 81 mg PO DAILY 01/15/16 02/08/17 History Furosemide [Lasix] 40 mg PO DAILY 01/15/16 02/08/17 History Losartan [Cozaar] 50 mg PO DAILY 01/15/16 02/08/17 History Pravastatin Sodium [Pravachol] 40 mg PO DAILY 01/15/16 02/08/17 History Meclizine [Antivert] 25 mg PO TID PRN #0 tab 01/16/16 02/08/17 Rx Metoprolol Tartrate [Lopressor] 50 mg PO DAILY 02/08/17 02/08/17 History Nitroglycerin Sl Tabs [Nitrostat] 0.4 mg SUBLINGUAL Q5M PRN 02/08/17 02/08/17 History Spironolactone [Aldactone] 25 mg PO DAILY 02/08/17 02/08/17 History Warfarin [Coumadin] 5 mg PO SUWESA 02/08/17 02/08/17 History Warfarin [Coumadin] 7.5 mg PO MOTUTHFR 02/08/17 02/08/17 History Allergies Allergy/AdvReac Type Severity Reaction Status Date / Time morphine Allergy Anaphylaxis Verified 02/08/17 12:01 Sulfa (Sulfonamide Allergy Anaphylaxis Verified 02/08/17 12:01 Antibiotics) Physical Exam Vitals: Vital Signs Temp Pulse Resp BP Pulse Ox 02/10/17 07:45 16 02/10/17 06:57 97.9 F 78 16 135/69 98 02/10/17 01:04 97.6 F 79 18 117/70 94 L 02/09/17 20:00 97.1 F L 79 16 118/68 95 Intake and Output 02/09/17 02/10/17 02/10/17 22:59 06:59 14:59 Intake Total 400 400 Output Total 300 670 Balance 100 -270 Intake: Intake, IV Titration 400 400 Amount Sodium Chloride 0.9% 1, 400 400 000 ml @ 50 mls/hr IV . Q20H [facility] Rx#:[id number] Output: Gastric Drainage 300 120 Urine 550 Other: # Voids 3 1 PHYSICAL EXAMINATION: GENERAL: The patient is alert and oriented x3, not in any acute distress. Well developed, well nourished. HEENT: Pupils are round and equally reacting to light. EOMI. No scleral icterus. No conjunctival pallor. Normocephalic, atraumatic. No pharyngeal erythema. No thyromegaly. CARDIOVASCULAR: S1 and S2 present. No murmurs, rubs, or gallops. PULMONARY: Chest is clear to auscultation, no wheezing or crackles. ABDOMEN: Distended nontender tympanic sluggish bowel sounds no palpable organomegaly MUSCULOSKELETAL: No joint swelling or deformity. EXTREMITIES: No cyanosis, clubbing, or pedal edema. NEUROLOGICAL: Gross neurological examination did not reveal any focal deficits. SKIN: No rashes. Results CBC & Chem 7: 02/10/17 06:56 02/10/17 06:56 Labs: Abnormal Lab Results - Last 24 Hours (Table) 02/10/17 Range/Units 06:56 Potassium 3.2 L (3.5-5.1) mmol/L Chloride 109 H (98-107) mmol/L Carbon Dioxide 19 L (22-30) mmol/L Total Protein 6.0 L (6.3-8.2) g/dL Microbiology - Last 24 Hours (Table) 02/08/17 13:32 Urine Culture - Final Urine,Voided Assessment and Plan Plan: #1 ileus or partial small bowel obstruction Secondary to constipation: Management as per primary service and the patient is receiving edema, avoid opiate analgesia. #2 acute renal failure: Mild prerenal azotemia secondary to NG tube output patient will be continued on IV fluids with close monitoring for congestive heart failure. #3 congestive heart failure chronic diastolic dysfunction without any acute exacerbation at this point of time but patient to be closely monitored for his R failure exacerbation as patient is receiving IV fluids at this time #4 atrial fibrillation: Rate controlled at this point of time anti-correlation can be restarted when ration can take oral medications. #5 essential hypertension next and #dyslipidemia #7 obesity
[2017-02-10] MEDS: METOPROLOL TARTRATE 50 MG TAB PO SCH (14:29)
[2017-02-10] MEDS: SPIRONOLACTONE 25 MG TAB PO SCH (14:29)
[2017-02-10] MEDS: PRAVASTATIN SODIUM 40 MG TAB PO SCH (14:29)
[2017-02-10] MEDS: METOCLOPRAMIDE 5 MG/ML 2 ML VIAL IVP SCH ×3 (14:39→23:39)
--- NOTE | 2017-02-10 15:45 | P.PN ---
Subjective 81-year-old male being seen this afternoon on rounds. Nasogastric tube in place currently clamped. Did note that the abdomen is more distended this afternoon with high viktoriya pitched bowel tones patient states he has not been passing any gas rectally. Additionally patient states is been no sensation of nausea no active emesis. Patient states he has not had a bowel movement this morning states he had one bowel movement a day before CAT scan of the abdomen and pelvis with IV and oral contrast report reviewed evidence of a large bowel ileus that is new. There is large bowel fluid levels consistent with diarrhea no free air. at bedside updated on plan of care Objective - Vital Signs Vital signs: Vital Signs Temp 97.9 F 02/10/17 14:52 Pulse 79 02/10/17 14:52 Resp 16 02/10/17 14:52 BP 142/74 02/10/17 14:52 Pulse Ox 95 02/10/17 14:52 Intake & Output 02/09/17 02/10/17 02/10/17 18:59 06:59 18:59 Intake Total 800 Output Total 970 Balance -170 Weight 111.13 kg 111.13 kg Intake: Intake, IV Titration 800 Amount Sodium Chloride 0.9% 1, 800 000 ml @ 50 mls/hr IV . Q20H [facility] Rx#:[id number] Output: Gastric Drainage 420 Urine 550 Other: Voiding Method Bedside Commode # Voids 3 3 - Exam Physical exam 81-year-old gentleman heart hearing resting in bed nasal gastric tube in place pleasant cooperative oriented 3 Lungs anterior adequate air movement no wheezing rales or rhonchi on room air Heart S1-S2 audible irregular Abdomen firm distended few hypoactive high-pitched bowel tones noted no nausea no vomiting states urinating with no difficulties reports generalized diffuse abdominal discomfort Extremities trace pedal edema bilaterally - Labs CBC & Chem 7: 02/10/17 06:56 02/10/17 06:56 Labs: Abnormal Lab Results - Last 24 Hours (Table) 02/10/17 Range/Units 06:56 Potassium 3.2 L (3.5-5.1) mmol/L Chloride 109 H (98-107) mmol/L Carbon Dioxide 19 L (22-30) mmol/L Total Protein 6.0 L (6.3-8.2) g/dL Microbiology - Last 24 Hours (Table) 02/08/17 13:32 Urine Culture - Final Urine,Voided Assessment and Plan Plan: Impression Present on admission diffuse abdominal pain with bloating with constipation suspect likely due to an ileus not ruled out Obesity BMI 34 Known coronary artery disease with prior coronary artery bypass grafting History of a CVA 2015 no deficit Chronic diastolic heart failure no evidence of an exacerbation Moderate to severe pulmonary hypertension Known carotid artery disease right coronary Abdominal x-ray on admission findings suggest likely adynamic colonic ileus or bowel obstruction not ruled out Hypertension essential CAT scan abdomen and pelvis with IV contrast shows evidence of a large bowel ileus with large bowel fluid levels consistent with diarrhea Plan Will order a Gastrografin enema follow up on results PT OT with fall precautions Repeat labs in the morning DVT and GI prophylaxis Hold Coumadin for now Removed the nasal gastric tube The above impression and plan of care have been discussed and directed by signing physician. Elyssa Murray nurse practitioner acting as scribe for signing physician.
--- NOTE | 2017-02-10 17:02 | FL ---
EXAMINATION TYPE: Gastrografin enema DATE OF EXAM: 02/10/2017 COMPARISON: Correlation CT 02/09/2017 HISTORY: 81-year-old male ileus versus distal colonic obstruction. Abdominal pain and distention. Total fluoroscopy time: 36 seconds. Total images: 35. TECHNIQUE: A single contrast Gastrografin enema study is performed. A total 1 L volume was utilized with a 1-1 dilution of Gastrografin. FINDINGS: Scaler Packer view of the abdomen shows diffuse colonic air distention. Pelvic phleboliths are present. No di lated small bowel seen. NG tube is in place. Gastrografin contrast flowed freely into the colon and opacifies the left hemicolon to the level of t he mid transverse colon. Diffuse distended colon is demonstrated without any abnormal narrowing or st ricture. No significant stool is seen. The prepared 1 L Gastrografin mixture was only enough to opacify the left side of the colon. IMPRESSION: 1. Gastrografin enema for assessment of the left side of the colon. 1 L was instilled. No evidence fo r distal obstructing lesion or significant stool. 2. Diffuse colonic distention suggesting an ileus.
[2017-02-11] MEDS: METOCLOPRAMIDE 5 MG/ML 2 ML VIAL IVP SCH ×4 (06:01→23:55)
[2017-02-11] MEDS: HEPARIN SODIUM,PORCINE 5,000 UNIT/ML 1 ML VIAL SQ SCH ×3 (07:18→23:55)
[2017-02-11] MEDS: PANTOPRAZOLE 40 MG/10 ML VIAL IV SCH (07:18)
[2017-02-11] MEDS: SPIRONOLACTONE 25 MG TAB PO SCH (07:18)
[2017-02-11] MEDS: METOPROLOL TARTRATE 50 MG TAB PO SCH (07:18)
[2017-02-11 07:49] LABS: Prothrombin Time 19.2 sec (9.0-12.0)
[2017-02-11 07:56] LABS: ALT 28 U/L (21-72); AST 23 U/L (17-59); Alkaline Phosphatase 74 U/L (38-126); Anion Gap 14 mmol/L; Blood Urea Nitrogen 15 mg/dL (9-20); Calcium 9.2 mg/dL (8.4-10.2); Carbon Dioxide 20 mmol/L (22-30); Chloride 107 mmol/L (98-107); Glucose 84 mg/dL (74-99); Non-African American GFR(MDRD) >60 (>60 ml/min/1.73 sqM); Potassium 3.1 mmol/L (3.5-5.1); Sodium 141 mmol/L (137-145); Total Bilirubin 1.1 mg/dL (0.2-1.3); Total Protein 6.4 g/dL (6.3-8.2)
[2017-02-11 08:04] LABS: Basophils % (A) 1 %; CH 32.8; CHCM 35.7; Eosinophils % (A) 1 %; HCT 40.3 % (39.0-53.0); HDW 3.06; HGB 14.5 gm/dL (13.0-17.5); Luc # (Auto) 0.16; Luc % (Auto) 2; Lymphocytes % (A) 12 %; MCH 33.2 pg (25.0-35.0); MCV 92.4 fL (80.0-100.0); Mean Platelet Volume 7.9; Monocytes # (A) 0.7 k/uL (0-1.0); Monocytes % (A) 9 %; Neutrophils # (A) 5.8 k/uL (1.3-7.7); Neutrophils % (A) 75 %; RBC 4.36 m/uL (4.30-5.90); RDW 13.6 % (11.5-15.5); WBC 7.7 k/uL (3.8-10.6); WBC (Perox) 7.96
[2017-02-11] MEDS: PRAVASTATIN SODIUM 40 MG TAB PO SCH (08:23)
[2017-02-11] MEDS: SODIUM CHLORIDE 0.9% 1,000 ML IV SCH (08:54)
--- NOTE | 2017-02-11 08:59 | P.PN ---
Subjective 81-year-old male being seen on rounds this morning patient had a moderate to large liquid stool this morning. Up sitting in a chair Patient reports no nausea vomiting tolerating clear liquid diet. Abdomen less distended but continues to be distended with high-pitched bowel tones noted. Did note that the patient did have gastrografin enema for assessment of the left side of the colon yesterday. There was no evidence of a distal obstructing lesion or significant stool. Did show diffuse colonic Distention suggesting an ileus Objective - Vital Signs Vital signs: Vital Signs Temp 97.3 F L 02/11/17 07:00 Pulse 80 02/11/17 08:00 Resp 16 02/11/17 08:00 BP 132/63 02/11/17 07:00 Pulse Ox 99 02/11/17 07:00 Intake & Output 02/10/17 02/11/17 02/11/17 18:59 06:59 18:59 Intake Total 1180 1300 Output Total 1800 600 Balance -620 700 Weight 111.13 kg 111.13 kg Intake: Intake, IV Titration 400 400 Amount Sodium Chloride 0.9% 1, 400 400 000 ml @ 50 mls/hr IV . Q20H [facility] Rx#:[id number] Oral 780 900 Output: Urine 1300 600 Stool 500 Other: Voiding Method Bedside Commode Bedside Commode Bedside Commode # Voids 3 2 2 # Bowel Movements 1 - Exam Physical exam 81-year-old gentleman sitting up in a chair pleasant cooperative oriented 3 Lungs anterior adequate air movement no wheezing rales or rhonchi on room air Heart S1-S2 audible regular Abdomen less abdominal distention few hypoactive high-pitched bowel tones noted no nausea no vomiting states urinating with no difficulties reports less abdominal discomfort had a moderate amount large liquid stool this morning Extremities trace pedal edema bilaterally - Labs CBC & Chem 7: 02/11/17 06:59 02/11/17 06:59 Labs: Abnormal Lab Results - Last 24 Hours (Table) 02/11/17 02/11/17 Range/Units 06:59 06:59 PT 19.2 H (9.0-12.0) sec INR 2.0 H (<1.2) Potassium 3.1 L (3.5-5.1) mmol/L Carbon Dioxide 20 L (22-30) mmol/L Assessment and Plan Plan: Impression Present on admission diffuse abdominal pain with bloating with constipation suspect likely due to an ileus Obesity BMI 34 Known coronary artery disease with prior coronary artery bypass grafting History of a CVA 2015 no deficit Chronic diastolic heart failure no evidence of an exacerbation Moderate to severe pulmonary hypertension Known carotid artery disease right coronary Abdominal x-ray on admission findings suggest likely adynamic colonic ileus or bowel obstruction not ruled out Hypertension essential CAT scan abdomen and pelvis with IV contrast shows evidence of a large bowel ileus with large bowel fluid levels consistent with diarrhea Status post Gastrografin enema for assessment of the left side of: Done February 11 show no evidence of a distal obstructing lesion suspect diffusecolonic distention suggesting an ileus Chronic debility suspect due to a prior CVA use of a walker for gait Chronic persistent atrial fibrillation on Coumadin anticoagulation long-term Plan Attempt to increase activity PT OT with fall precautions Repeat labs in the morning DVT and GI prophylaxis Hold Coumadin for now will restart if no surgical intervention indicated INR this morning 2.0 The above impression and plan of care have been discussed and directed by signing physician. Elyssa Murray nurse practitioner acting as scribe for signing physician.
[2017-02-11] MEDS ORDERED: Potassium Replacement Protocol 1 EACH MISC MISCELLANE PRN (12:56)
--- NOTE | 2017-02-11 13:26 | P.PN ---
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 He presents to the hospital with c/o increased abdominal distention, pain and constipation x4 days. He states he really started feeling poorly on Wednesday of last week with decreased appetite. Over the past few days his only oral intake was water and yogurt. He has no PCP but follows very regularly with Dr. Madrid. He saw him in the office yesterday and was advised to come to the hospital for further evaluation of his abdomen. His cardiac medications include aldactone 25mg daily, aspirin 81mg daily, lasix 40mg daily, losartan 50mg daily , metoprolol 50mg daily, pravastatin 40mg daily and coumadin 5mg daily. His most recent echo was done in the office 11/2016 reveals impaired LV function with ejection fraction 40%. Lexiscan performed 10/2016 indicates small area of anterior ischemia. Last cath 2004 showed patent PHELAN-LAD, occluded SVG-RCA and LCX. At that time he underwent stenting of distal left main and proximal ramus. He is being seen today in follow-up. His NG tube is out and he is actively stooling. He has been up ambulating in the halls and tolerating oral intake. He denies chest pain, sob, palpitations or dizziness. Abdomen remains mildly distended with no tenderness. Objective - Vital Signs Vital signs: Vital Signs Temp 97.3 F L 02/11/17 07:00 Pulse 80 02/11/17 08:00 Resp 16 02/11/17 08:00 BP 132/63 02/11/17 07:00 Pulse Ox 99 02/11/17 07:00 Intake & Output 02/10/17 02/11/17 02/11/17 18:59 06:59 18:59 Intake Total 1180 1300 Output Total 1800 600 Balance -620 700 Weight 111.13 kg 111.13 kg Intake: Intake, IV Titration 400 400 Amount Sodium Chloride 0.9% 1, 400 400 000 ml @ 50 mls/hr IV . Q20H [facility] Rx#:[id number] Oral 780 900 Output: Urine 1300 600 Stool 500 Other: Voiding Method Bedside Commode Bedside Commode Bedside Commode # Voids 3 2 2 # Bowel Movements 1 - Exam GENERAL: Well-appearing, well-nourished and in no acute distress. NECK: Supple without JVD or thyromegaly. LUNGS: Breath sounds clear to auscultation bilaterally. Respiration equal and unlabored. No wheezes, rales or rhonchi. HEART: Regular rate and rhythm without murmurs, rubs or gallops. S1 and S2 heard. EXTREMITIES: 1+ peripheral pulses with evidence of b/l 1+ pitting lower extremity edema and no calf tenderness noted. - Labs CBC & Chem 7: 02/11/17 06:59 02/11/17 06:59 Labs: Abnormal Lab Results - Last 24 Hours (Table) 02/11/17 02/11/17 Range/Units 06:59 06:59 PT 19.2 H (9.0-12.0) sec INR 2.0 H (<1.2) Potassium 3.1 L (3.5-5.1) mmol/L Carbon Dioxide 20 L (22-30) mmol/L Assessment and Plan Plan: ASSESSMENT 1. Ileus vs bowel obstruction, surgery evaluating the patient. 2. Chronic persistent atrial fibrillation on half-way anticoagulation 3. Known CAD with history of CABG 4. Chronic systolic heart failure 5. Essential hypertension 6. Dyslipidemia 7. Obesity PLAN Pt is actively passing gas and having bowel movements. Continue with medical management. Will hold lasix again today and restart in the morning. Resume coumadin once surgery deems not a surgical candidate. Nurse Practitioner note has been reviewed, I agree with a documented findings and plan of care. Patient was seen and examined.
[2017-02-11] MEDS: POTASSIUM CHLORIDE 10 MEQ, LIDOCAINE 2% INJ 10 MG in SODIUM CHLORIDE 0.9% 100 ML IV SCH ×2 (13:48→14:57)
--- NOTE | 2017-02-11 15:56 | P.PN ---
Subjective Progress Note being dictated for Dr. Beavers. Interval history:Patient is a pleasant 81-year-old gentleman was admitted for partial small bowel resection secondary to constipation. Patient is admitted to surgical service medicine was consulted regarding recommendations for IV fluids considering his history of congestive heart failure. Patient is getting Lasix prolactin on at this time and patient is on long-term anticoagulation with Coumadin for atrial fibrillation patient has chronic diastolic dysfunction and normal ejection fraction during last admission. Patient is not in heart failure exacerbation and had NG tube output of about a liter 2 L and half because of which patient will be started on cautious hydration with lactated Ringer's. Since Coumadin is for atrial fibrillation can hold Coumadin temporarily as patient is nothing by mouth or else patient can be started on Coumadin 02/10/2017 remains distended, NG tube present with minimal drainage. staff reports liquid brown bowel movement this morning. CT of abdomen and pelvis reporting large bowel ileus, no free air, large bowel fluid levels consistent with diarrhea, right renal cortical cyst increased compared to prior scan. Denies nausea, denies vomiting. Denies chest pain, palpitations or increasing shortness of breath. Objective - Vital Signs Vital signs: Vital Signs Temp 97.9 F 02/10/17 14:52 Pulse 79 02/10/17 16:00 Resp 16 02/10/17 16:00 BP 142/74 02/10/17 14:52 Pulse Ox 95 02/10/17 14:52 Intake & Output 02/09/17 02/10/17 02/10/17 18:59 06:59 18:59 Intake Total 800 Output Total 970 Balance -170 Weight 111.13 kg 111.13 kg Intake: Intake, IV Titration 800 Amount Sodium Chloride 0.9% 1, 800 000 ml @ 50 mls/hr IV . Q20H [facility] Rx#:[id number] Output: Gastric Drainage 420 Urine 550 Other: Voiding Method Bedside Commode # Voids 3 3 - Exam GENERAL: The patient is alert and oriented x3, not in any acute distress. Well developed, well nourished. HEENT: Pupils are round and equally reacting to light. EOMI. No scleral icterus. No conjunctival pallor. Normocephalic, atraumatic. No pharyngeal erythema. No thyromegaly. NG tube present. CARDIOVASCULAR: S1 and S2 present. No murmurs, rubs, or gallops. PULMONARY: Chest is clear to auscultation, no wheezing or crackles. ABDOMEN: Distended nontender tympanic sluggish bowel sounds, hypoactive with high-pitched bowel sounds MUSCULOSKELETAL: No joint swelling or deformity. EXTREMITIES: No cyanosis, clubbing, or pedal edema. NEUROLOGICAL: Gross neurological examination did not reveal any focal deficits. SKIN: No rashes. - Labs CBC & Chem 7: 02/11/17 06:59 02/11/17 06:59 Labs: Abnormal Lab Results - Last 24 Hours (Table) 02/10/17 Range/Units 06:56 Potassium 3.2 L (3.5-5.1) mmol/L Chloride 109 H (98-107) mmol/L Carbon Dioxide 19 L (22-30) mmol/L Total Protein 6.0 L (6.3-8.2) g/dL Microbiology - Last 24 Hours (Table) 02/08/17 13:32 Urine Culture - Final Urine,Voided Assessment and Plan Plan: #1 ileus or partial small bowel obstruction Secondary to constipation #2 acute renal failure: Mild prerenal azotemia secondary to NG tube output #3 congestive heart failure chronic diastolic dysfunction without any acute exacerbation #4 atrial fibrillation: Rate controlled #5 essential hypertension next and #dyslipidemia #7 obesity Plan: Continue on current medication regime ,monitoring and symptomatic treatment. Increase ambulation as tolerated. Close monitoring of NG output, may need to increase of IV fluids if increases, cautiously as patient does have history of CHF. Aggressive pulmonary toileting. NPO with diet advancement as per surgery. Patient has atrial fibrillation, Resume anticoagulation once able to take oral medications. Schedule for barium enema today. Further recommendations to follow. The impression and plan of care has been dictated as directed. : I performed a H&P examination of this patient and discussed the same with the dictator. I agree with the dictator's note. Any additional findings/opinions/ etc. will be noted.
[2017-02-12] MEDS: SODIUM CHLORIDE 0.9% 1,000 ML IV SCH (04:13)
[2017-02-12] MEDS: METOCLOPRAMIDE 5 MG/ML 2 ML VIAL IVP SCH ×3 (05:55→17:21)
[2017-02-12] MEDS: PRAVASTATIN SODIUM 40 MG TAB PO SCH (08:11)
[2017-02-12] MEDS: PANTOPRAZOLE 40 MG TABLET PO SCH (08:11)
[2017-02-12] MEDS: HEPARIN SODIUM,PORCINE 5,000 UNIT/ML 1 ML VIAL SQ SCH ×2 (08:11→15:32)
[2017-02-12] MEDS: FUROSEMIDE 40 MG TAB PO SCH (08:12)
[2017-02-12] MEDS: METOPROLOL TARTRATE 50 MG TAB PO SCH (08:12)
[2017-02-12] MEDS: SPIRONOLACTONE 25 MG TAB PO SCH (08:12)
[2017-02-12] MEDS: POTASSIUM CHLORIDE ER 20 MEQ TAB.ER PO SCH ×2 (09:50→11:42)
[2017-02-12 10:34] LABS: INR 1.8 (<1.2); Prothrombin Time 17.6 sec (9.0-12.0)
[2017-02-12 10:45] LABS: ALT 32 U/L (21-72); AST 22 U/L (17-59); Alkaline Phosphatase 75 U/L (38-126); Anion Gap 14 mmol/L; Blood Urea Nitrogen 12 mg/dL (9-20); Calcium 9.2 mg/dL (8.4-10.2); Carbon Dioxide 17 mmol/L (22-30); Chloride 109 mmol/L (98-107); Glucose 94 mg/dL (74-99); Non-African American GFR(MDRD) >60 (>60 ml/min/1.73 sqM); Potassium 3.2 mmol/L (3.5-5.1); Sodium 140 mmol/L (137-145); Total Protein 6.2 g/dL (6.3-8.2)
--- NOTE | 2017-02-12 12:24 | P.PN ---
Subjective 81-year-old male being seen on rounds this morning patient did ambulate in the hallway after ambulation past a moderate amount of gas rectally. Patient states no stool this morning but did have a loose watery stool last night. Patient states having no abdominal pain. Abdomen remains distended firm high- pitched bowel tones noted patient reports no nausea vomiting patient reports urinating with no difficulty. Patients being followed by surgical service being treated for diffuse colonic distention suggesting an ileus Objective - Vital Signs Vital signs: Vital Signs Temp 97.9 F 02/12/17 08:08 Pulse 91 02/12/17 08:08 Resp 17 02/12/17 08:35 BP 128/72 02/12/17 08:08 Pulse Ox 98 02/12/17 08:08 Intake & Output 02/11/17 02/12/17 02/12/17 18:59 06:59 18:59 Intake Total 1300 1750 Output Total 700 1000 Balance 600 750 Weight 111.13 kg 111.13 kg Intake: Intake, IV Titration 400 500 Amount Sodium Chloride 0.9% 1, 400 500 000 ml @ 50 mls/hr IV . Q20H [facility] Rx#:[id number] Oral 900 1250 Output: Urine 600 1000 Stool 100 Other: Voiding Method Bedside Commode Bedside Commode Urinal # Voids 2 2 4 # Bowel Movements 2 2 - Exam Physical exam 81-year-old male sitting up in a chair denying abdominal pain states has been up ambulating in the hallway this morning passing gas rectally Lungs essentially clear with adequate air movement Heart S1-S2 audible irregular Abdomen firm distended no facial grimacing with palpitation to the abdominal wall passing gas rectally hyperactive bowel tones noted states urinating no difficulty tolerating clear liquids with no nausea no vomiting Extremities below-knee ISAÍAS hose in place trace pedal edema - Labs CBC & Chem 7: 02/11/17 06:59 02/12/17 10:10 Labs: Abnormal Lab Results - Last 24 Hours (Table) 02/11/17 02/12/17 02/12/17 Range/Units 18:13 10:10 10:15 PT 17.6 H (9.0-12.0) sec INR 1.8 H (<1.2) Potassium 3.1 L 3.2 L (3.5-5.1) mmol/L Chloride 109 H (98-107) mmol/L Carbon Dioxide 17 L (22-30) mmol/L Total Protein 6.2 L (6.3-8.2) g/dL Assessment and Plan Plan: Impression Present on admission diffuse abdominal pain with bloating with constipation suspect likely due to an ileus Obesity BMI 34 Known coronary artery disease with prior coronary artery bypass grafting History of a CVA 2015 no deficit Chronic diastolic heart failure no evidence of an exacerbation Moderate to severe pulmonary hypertension Known carotid artery disease right coronary Abdominal x-ray on admission findings suggest likely adynamic colonic ileus or bowel obstruction not ruled out Hypertension essential CAT scan abdomen and pelvis with IV contrast shows evidence of a large bowel ileus with large bowel fluid levels consistent with diarrhea Status post Gastrografin enema for assessment of the left side of: Done February 11 show no evidence of a distal obstructing lesion suspect diffusecolonic distention suggesting an ileus Chronic debility suspect due to a prior CVA use of a walker for gait Chronic persistent atrial fibrillation on Coumadin anticoagulation long-term Electrolyte hypokalemia Plan Potassium to be replaced Repeat labs in the morning with a mag Attempt to increase activity PT OT with fall precautions Repeat labs in the morning DVT and GI prophylaxis Hold Coumadin for now will restart if no surgical intervention indicated INR this morning 2.0 The above impression and plan of care have been discussed and directed by signing physician. Elyssa Murray nurse practitioner acting as scribe for signing physician.
[2017-02-12] MEDS: POTASSIUM CHLORIDE 10 MEQ, LIDOCAINE 2% INJ 10 MG in SODIUM CHLORIDE 0.9% 100 ML IVPB SCH ×3 (13:09→21:45)
--- NOTE | 2017-02-12 13:50 | P.PN ---
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 He presents to the hospital with c/o increased abdominal distention, pain and constipation x4 days. He states he really started feeling poorly on Wednesday of last week with decreased appetite. Over the past few days his only oral intake was water and yogurt. He has no PCP but follows very regularly with Dr. Madrid. He saw him in the office yesterday and was advised to come to the hospital for further evaluation of his abdomen. His cardiac medications include aldactone 25mg daily, aspirin 81mg daily, lasix 40mg daily, losartan 50mg daily , metoprolol 50mg daily, pravastatin 40mg daily and coumadin 5mg daily. His most recent echo was done in the office 11/2016 reveals impaired LV function with ejection fraction 40%. Lexiscan performed 10/2016 indicates small area of anterior ischemia. Last cath 2004 showed patent PHELAN-LAD, occluded SVG-RCA and LCX. At that time he underwent stenting of distal left main and proximal ramus. He is being seen today in follow-up. His NG tube is out and he is actively stooling and passing gas. He has been up ambulating in the halls and tolerating oral intake. He denies chest pain, sob, palpitations or dizziness. Abdomen remains mildly distended and firm with no tenderness. Potassium low and actively being replaced. Objective - Vital Signs Vital signs: Vital Signs Temp 97.9 F 02/12/17 08:08 Pulse 91 02/12/17 08:08 Resp 17 02/12/17 08:35 BP 128/72 02/12/17 08:08 Pulse Ox 98 02/12/17 08:08 Intake & Output 02/11/17 02/12/17 02/12/17 18:59 06:59 18:59 Intake Total 1300 1750 Output Total 700 1000 Balance 600 750 Weight 111.13 kg 111.13 kg Intake: Intake, IV Titration 400 500 Amount Sodium Chloride 0.9% 1, 400 500 000 ml @ 50 mls/hr IV . Q20H [facility] Rx#:[id number] Oral 900 1250 Output: Urine 600 1000 Stool 100 Other: Voiding Method Bedside Commode Bedside Commode Urinal # Voids 2 2 4 # Bowel Movements 2 2 - Exam GENERAL: Well-appearing, well-nourished and in no acute distress. NECK: Supple without JVD or thyromegaly. LUNGS: Breath sounds clear to auscultation bilaterally. Respiration equal and unlabored. No wheezes, rales or rhonchi. HEART: Regular rate and rhythm without murmurs, rubs or gallops. S1 and S2 heard. EXTREMITIES: 1+ peripheral pulses with evidence of b/l 1+ pitting lower extremity edema and no calf tenderness noted. - Labs CBC & Chem 7: 02/11/17 06:59 02/12/17 10:10 Labs: Abnormal Lab Results - Last 24 Hours (Table) 02/11/17 02/12/17 02/12/17 Range/Units 18:13 10:10 10:15 PT 17.6 H (9.0-12.0) sec INR 1.8 H (<1.2) Potassium 3.1 L 3.2 L (3.5-5.1) mmol/L Chloride 109 H (98-107) mmol/L Carbon Dioxide 17 L (22-30) mmol/L Total Protein 6.2 L (6.3-8.2) g/dL Assessment and Plan Plan: ASSESSMENT 1. Ileus vs bowel obstruction, surgery evaluating the patient. 2. Chronic persistent atrial fibrillation on care home anticoagulation 3. Known CAD with history of CABG 4. Chronic systolic heart failure 5. Essential hypertension 6. Dyslipidemia 7. Obesity 8. Hypokalemia PLAN Pt is actively passing gas and having bowel movements. Continue with medical management. Will check magnesium level. Continue with actively replacing potassium. Resume coumadin once surgery deems not a surgical candidate. INR 1.8. Nurse Practitioner note has been reviewed, I agree with a documented findings and plan of care. Patient was seen and examined.
[2017-02-12] MEDS ORDERED: Potassium Replacement Protocol 1 EACH MISC MISCELLANE PRN (15:00)
[2017-02-12] MEDS ORDERED: Magnesium Replacement Protocol 1 EACH MISC MISCELLANE PRN (15:00)
--- NOTE | 2017-02-12 15:10 | P.PN ---
Subjective Progress Note being dictated for Dr. Beavers. Interval history:Patient is a pleasant 81-year-old gentleman was admitted for partial small bowel resection secondary to constipation. Patient is admitted to surgical service medicine was consulted regarding recommendations for IV fluids considering his history of congestive heart failure. Patient is getting Lasix prolactin on at this time and patient is on long-term anticoagulation with Coumadin for atrial fibrillation patient has chronic diastolic dysfunction and normal ejection fraction during last admission. Patient is not in heart failure exacerbation and had NG tube output of about a liter 2 L and half because of which patient will be started on cautious hydration with lactated Ringer's. Since Coumadin is for atrial fibrillation can hold Coumadin temporarily as patient is nothing by mouth or else patient can be started on Coumadin 02/10/2017 remains distended, NG tube present with minimal drainage. staff reports liquid brown bowel movement this morning. CT of abdomen and pelvis reporting large bowel ileus, no free air, large bowel fluid levels consistent with diarrhea, right renal cortical cyst increased compared to prior scan. Denies nausea, denies vomiting. Denies chest pain, palpitations or increasing shortness of breath. 02/11/2017. Underwent BE yesterday, reporting no distal obstructive lesion or significant stool, diffuse colonic distention possible ileus. NG tube removed. Large watery stool this morning. Passing flatus. Tolerating clear liquid diet with no nausea vomiting. Denies abdominal pain. Ambulating in the hallway, tolerating increase in exertion well. Afebrile. Anticoagulation remains on hold. Potassium 3.1. Denies chest pain, palpitations or increasing shortness of breath. Objective - Vital Signs Vital signs: Vital Signs Temp 97.3 F L 02/11/17 07:00 Pulse 80 02/11/17 16:00 Resp 16 02/11/17 16:00 BP 132/63 02/11/17 07:00 Pulse Ox 99 02/11/17 07:00 Intake & Output 02/10/17 02/11/17 02/11/17 18:59 06:59 18:59 Intake Total 1180 1300 Output Total 1800 700 Balance -620 600 Weight 111.13 kg 111.13 kg Intake: Intake, IV Titration 400 400 Amount Sodium Chloride 0.9% 1, 400 400 000 ml @ 50 mls/hr IV . Q20H [facility] Rx#:[id number] Oral 780 900 Output: Urine 1300 600 Stool 500 100 Other: Voiding Method Bedside Commode Bedside Commode Bedside Commode # Voids 3 2 2 # Bowel Movements 1 2 - Exam GENERAL: The patient is alert and oriented x3, not in any acute distress. Well developed, well nourished. HEENT: Pupils are round and equally reacting to light. EOMI. No scleral icterus. No conjunctival pallor. Normocephalic, atraumatic. No pharyngeal erythema. No thyromegaly. CARDIOVASCULAR: S1 and S2 present. No murmurs, rubs, or gallops. PULMONARY: Chest is clear to auscultation, no wheezing or crackles. ABDOMEN: Distended nontender tympanic sluggish bowel sounds, hypoactive with persistent high-pitched bowel sounds MUSCULOSKELETAL: No joint swelling or deformity. EXTREMITIES: No cyanosis, clubbing, trace pedal edema. NEUROLOGICAL: Gross neurological examination did not reveal any focal deficits. SKIN: No rashes. - Labs CBC & Chem 7: 02/11/17 06:59 02/12/17 10:10 Labs: Abnormal Lab Results - Last 24 Hours (Table) 02/11/17 02/11/17 Range/Units 06:59 06:59 PT 19.2 H (9.0-12.0) sec INR 2.0 H (<1.2) Potassium 3.1 L (3.5-5.1) mmol/L Carbon Dioxide 20 L (22-30) mmol/L Assessment and Plan Plan: #1 ileus or partial small bowel obstruction Secondary to constipation #2 acute renal failure: Mild prerenal azotemia secondary to NG tube output #3 congestive heart failure chronic diastolic dysfunction without any acute exacerbation #4 atrial fibrillation: Rate controlled #5 essential hypertension next and #dyslipidemia #7 obesity Plan: Continue on current medication regime ,monitoring and symptomatic treatment. Patient has atrial fibrillation, Coumadin remains on hold as per surgery, resume when surgery ok, as patient is tolerating clear liquids. Increase ambulation as tolerated. Continue increasing ambulation as tolerated. Aggressive pulmonary toileting. Further recommendations to follow. The impression and plan of care has been dictated as directed. : I performed a H&P examination of this patient and discussed the same with the dictator. I agree with the dictator's note. Any additional findings/opinions/ etc. will be noted.
--- NOTE | 2017-02-12 15:18 | P.PN ---
Subjective Progress Note being dictated for Dr. Beavers. Interval history:Patient is a pleasant 81-year-old gentleman was admitted for partial small bowel resection secondary to constipation. Patient is admitted to surgical service medicine was consulted regarding recommendations for IV fluids considering his history of congestive heart failure. Patient is getting Lasix prolactin on at this time and patient is on long-term anticoagulation with Coumadin for atrial fibrillation patient has chronic diastolic dysfunction and normal ejection fraction during last admission. Patient is not in heart failure exacerbation and had NG tube output of about a liter 2 L and half because of which patient will be started on cautious hydration with lactated Ringer's. Since Coumadin is for atrial fibrillation can hold Coumadin temporarily as patient is nothing by mouth or else patient can be started on Coumadin 02/10/2017 remains distended, NG tube present with minimal drainage. staff reports liquid brown bowel movement this morning. CT of abdomen and pelvis reporting large bowel ileus, no free air, large bowel fluid levels consistent with diarrhea, right renal cortical cyst increased compared to prior scan. Denies nausea, denies vomiting. Denies chest pain, palpitations or increasing shortness of breath. 02/11/2017. Underwent BE yesterday, reporting no distal obstructive lesion or significant stool, diffuse colonic distention possible ileus. NG tube removed. Large watery stool this morning. Passing flatus. Tolerating clear liquid diet with no nausea vomiting. Denies abdominal pain. Ambulating in the hallway, tolerating increase in exertion well. Afebrile. Anticoagulation remains on hold. Potassium 3.1. Denies chest pain, palpitations or increasing shortness of breath. 02/12/2017. Reports watery bowel movement last night, passing large amounts of flatus this morning. Continues ambulating in the hallway, multiple times. Remains on clear liquid diet, Denies abdominal pain, denies nausea or vomiting. Abdomen remains distended, tympanic, slightly softer with hypoactive bowel sounds. INR 1.8. Coumadin remains on hold as per surgery, discussing potential further interventions. Denies chest pain, palpitations, increased shortness of breath. Objective - Vital Signs Vital signs: Vital Signs Temp 97.9 F 02/12/17 14:28 Pulse 77 02/12/17 14:28 Resp 16 02/12/17 14:28 BP 106/69 02/12/17 14:28 Pulse Ox 97 02/12/17 14:28 Intake & Output 02/11/17 02/12/17 02/12/17 18:59 06:59 18:59 Intake Total 1300 1750 Output Total 700 1000 Balance 600 750 Weight 111.13 kg 111.13 kg Intake: Intake, IV Titration 400 500 Amount Sodium Chloride 0.9% 1, 400 500 000 ml @ 50 mls/hr IV . Q20H [facility] Rx#:[id number] Oral 900 1250 Output: Urine 600 1000 Stool 100 Other: Voiding Method Bedside Commode Bedside Commode Urinal # Voids 2 2 4 # Bowel Movements 2 2 - Exam GENERAL: The patient is alert and oriented x3, sitting up in chair, not in any acute distress. Well developed, well nourished. HEENT: Pupils are round and equally reacting to light. EOMI. No scleral icterus. No conjunctival pallor. Normocephalic, atraumatic. No pharyngeal erythema. No thyromegaly. CARDIOVASCULAR: S1 and S2 present. No murmurs, rubs, or gallops. PULMONARY: Chest is clear to auscultation, no wheezing or crackles. ABDOMEN: Distended, slightly softer, nontender tympanic sluggish bowel sounds, hypoactive with high-pitched bowel sounds MUSCULOSKELETAL: No joint swelling or deformity. EXTREMITIES: No cyanosis, clubbing, trace pedal edema. NEUROLOGICAL: Gross neurological examination did not reveal any focal deficits. SKIN: No rashes. - Labs CBC & Chem 7: 02/11/17 06:59 02/12/17 10:10 Labs: Abnormal Lab Results - Last 24 Hours (Table) 02/11/17 02/12/17 02/12/17 Range/Units 18:13 10:10 10:15 PT 17.6 H (9.0-12.0) sec INR 1.8 H (<1.2) Potassium 3.1 L 3.2 L (3.5-5.1) mmol/L Chloride 109 H (98-107) mmol/L Carbon Dioxide 17 L (22-30) mmol/L Total Protein 6.2 L (6.3-8.2) g/dL Assessment and Plan Plan: #1 ileus or partial small bowel obstruction Secondary to constipation #2 acute renal failure: Mild prerenal azotemia secondary to NG tube output #3 congestive heart failure chronic diastolic dysfunction without any acute exacerbation #4 atrial fibrillation: Rate controlled #5 essential hypertension next and #dyslipidemia #7 obesity Plan: Continue on current medication regime ,monitoring and symptomatic treatment. Electrolyte replacements as ordered. With recheck of potassium this afternoon . Close monitoring of electrolytes with repeat labs ordered for a.m. Patient has atrial fibrillation, Coumadin remains on hold as per surgery, resume when surgery ok.Continue increasing ambulation as tolerated. Aggressive pulmonary toileting. Further recommendations to follow. The impression and plan of care has been dictated as directed. : I performed a H&P examination of this patient and discussed the same with the dictator. I agree with the dictator's note. Any additional findings/opinions/ etc. will be noted.
[2017-02-12] MEDS: MAGNESIUM SULFATE-D5W PMX 1 GM in DEXTROSE/WATER 1 100ML.BAG IVPB SCH ×2 (16:25→17:22)
[2017-02-12 20:28] LABS: Potassium 3.3 mmol/L (3.5-5.1)
[2017-02-12] MEDS ORDERED: MAGNESIUM SULFATE-D5W PMX 1 GM in DEXTROSE/WATER 1 100ML.BAG IVPB ONE ×2 (21:00→23:45)
[2017-02-13] MEDS: POTASSIUM CHLORIDE 10 MEQ, LIDOCAINE 2% INJ 10 MG in SODIUM CHLORIDE 0.9% 100 ML IVPB SCH ×3 (00:09→08:32)
[2017-02-13] MEDS: HEPARIN SODIUM,PORCINE 5,000 UNIT/ML 1 ML VIAL SQ SCH ×2 (00:50→08:25)
[2017-02-13] MEDS: METOCLOPRAMIDE 5 MG/ML 2 ML VIAL IVP SCH ×3 (00:50→12:10)
[2017-02-13] MEDS: SODIUM CHLORIDE 0.9% 1,000 ML IV SCH (01:57)
[2017-02-13 04:15] LABS: INR 1.6 (<1.2); Prothrombin Time 15.6 sec (9.0-12.0)
[2017-02-13 04:24] LABS: Basophils % (A) 1 %; CHCM 37.4; Eosinophils # (A) 0.1 k/uL (0-0.7); Eosinophils % (A) 2 %; HCT 35.2 % (39.0-53.0); HDW 3.01; HGB 12.5 gm/dL (13.0-17.5); Hyperchromasia Slight; Luc # (Auto) 0.13; Luc % (Auto) 2; Lymphocytes # (A) 0.8 k/uL (1.0-4.8); Lymphocytes % (A) 14 %; MCH 32.4 pg (25.0-35.0); MCHC 35.4 g/dL (31.0-37.0); MCV 91.5 fL (80.0-100.0); Mean Platelet Volume 8.6; Monocytes # (A) 0.6 k/uL (0-1.0); Monocytes % (A) 10 %; Neutrophils # (A) 4.1 k/uL (1.3-7.7); Neutrophils % (A) 71 %; RBC 3.85 m/uL (4.30-5.90); RDW 14.3 % (11.5-15.5); WBC 5.8 k/uL (3.8-10.6); WBC (Perox) 6.12
[2017-02-13 04:48] VITALS: RESP 16
[2017-02-13 05:34] LABS: Anion Gap 10 mmol/L; Blood Urea Nitrogen 11 mg/dL (9-20); Calcium 8.8 mg/dL (8.4-10.2); Carbon Dioxide 20 mmol/L (22-30); Chloride 111 mmol/L (98-107); Glucose 92 mg/dL (74-99); Magnesium 2.2 mg/dL (1.6-2.3); Non-African American GFR(MDRD) >60 (>60 ml/min/1.73 sqM); Potassium 3.4 mmol/L (3.5-5.1); Sodium 141 mmol/L (137-145)
[2017-02-13 07:20] VITALS: BP 129/78; PULSE 65; TEMP 97.6
[2017-02-13] MEDS: PRAVASTATIN SODIUM 40 MG TAB PO SCH (08:26)
[2017-02-13] MEDS: FUROSEMIDE 40 MG TAB PO SCH (08:26)
[2017-02-13] MEDS: SPIRONOLACTONE 25 MG TAB PO SCH (08:26)
[2017-02-13] MEDS: METOPROLOL TARTRATE 50 MG TAB PO SCH (08:26)
[2017-02-13] MEDS: PANTOPRAZOLE 40 MG TABLET PO SCH (08:26)
--- NOTE | 2017-02-13 12:30 | P.PN ---
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 The patient was referred to the hospital from the office because when I saw him in the office he was experiencing abdominal discomfort and he did not have any bowel movement for the last several days. He was diagnosed with partial small bowel obstruction which was treated medically. On follow-up with him today he is feeling better. He denies having any chest pain or discomfort or difficulty breathing. We are awaiting the surgical follow-up on him today. There is possibility that he might be able to be discharged home.
--- NOTE | 2017-02-13 15:46 | P.PN ---
Subjective She did move his bowel legally doing well and is being discharged today medication reconciliation was reviewed and appropriate and will be discharged today. Objective - Vital Signs Vital signs: Vital Signs Temp 97.6 F 02/13/17 07:19 Pulse 65 02/13/17 07:19 Resp 16 02/13/17 07:19 BP 129/78 02/13/17 07:19 Pulse Ox 98 02/13/17 07:19 Intake & Output 02/12/17 02/13/17 02/13/17 18:59 06:59 18:59 Intake Total 600 Output Total 100 Balance 500 Weight 111.13 kg Intake: Intake, IV Titration 600 Amount Potassium Chloride 10 meq 200 Lidocaine 2% Inj 10 mg In Sodium Chloride 0.9% 100 ml @ 100 mls/hr IVPB Q1HR [facility] Rx#:[id number] Sodium Chloride 0.9% 1, 400 000 ml @ 50 mls/hr IV . Q20H [facility] Rx#:[id number] Output: Stool 100 Other: Voiding Method Bedside Commode Urinal # Voids 3 1 5 # Bowel Movements 1 2 - Exam GENERAL: The patient is alert and oriented x3, sitting up in chair, not in any acute distress. Well developed, well nourished. HEENT: Pupils are round and equally reacting to light. EOMI. No scleral icterus. No conjunctival pallor. Normocephalic, atraumatic. No pharyngeal erythema. No thyromegaly. CARDIOVASCULAR: S1 and S2 present. No murmurs, rubs, or gallops. PULMONARY: Chest is clear to auscultation, no wheezing or crackles. ABDOMEN: Distended, slightly softer, nontender tympanic sluggish bowel sounds, hypoactive with high-pitched bowel sounds MUSCULOSKELETAL: No joint swelling or deformity. EXTREMITIES: No cyanosis, clubbing, trace pedal edema. NEUROLOGICAL: Gross neurological examination did not reveal any focal deficits. SKIN: No rashes. - Labs CBC & Chem 7: 02/13/17 03:50 02/13/17 03:50 Labs: Abnormal Lab Results - Last 24 Hours (Table) 02/12/17 02/13/17 02/13/17 Range/Units 19:50 03:50 03:50 RBC (4.30-5.90) m/uL Hgb (13.0-17.5) gm/dL Hct (39.0-53.0) % Lymphocytes # (1.0-4.8) k/uL PT 15.6 H (9.0-12.0) sec INR 1.6 H (<1.2) Potassium 3.3 L 3.4 L (3.5-5.1) mmol/L Chloride 111 H (98-107) mmol/L Carbon Dioxide 20 L (22-30) mmol/L 02/13/17 Range/Units 03:50 RBC 3.85 L (4.30-5.90) m/uL Hgb 12.5 L (13.0-17.5) gm/dL Hct 35.2 L (39.0-53.0) % Lymphocytes # 0.8 L (1.0-4.8) k/uL PT (9.0-12.0) sec INR (<1.2) Potassium (3.5-5.1) mmol/L Chloride (98-107) mmol/L Carbon Dioxide (22-30) mmol/L Assessment and Plan Plan: #1 ileus or partial small bowel obstruction Secondary to constipation #2 acute renal failure: Mild prerenal azotemia secondary to NG tube output #3 congestive heart failure chronic diastolic dysfunction without any acute exacerbation #4 atrial fibrillation: Rate controlled #5 essential hypertension next and #dyslipidemia #7 obesity Patient is medically stable to be discharged and patient can be resumed on spironolactone and the Lasix upon discharge. Repeat a little lites in about a week and follow with primary care patient in about a week
--- NOTE | 2017-02-13 16:09 | P.DS ---
Providers Date of admission: 02/08/17 14:52 Expected date of discharge: 02/13/17 Attending physician: Jose Luis Britt Consults: 02/09/17 09:59 Consult Physician Urgent Consulting Provider: Van Madrid Consult Reason/Comments: Cardiac eval management Do you want consulting provider notified?: Yes 02/09/17 10:00 Consult Physician Urgent Consulting Provider: Lizette Leiva Consult Reason/Comments: Medical management Do you want consulting provider notified?: Yes Primary care physician: Stated None - Discharge Diagnosis(es) (1) Altered bowel function Status: Acute (2) Abdominal pain Status: Acute Hospital Course: The patient presented with abdominal pain and constipation. The CT scan showed a distended colon. He was treated with NG tube decompression and supportive care. He gradually was able to regain some bowel function with passing flatus and having bowel movement. He was felt to be stable for discharge on a low residue diet and have a follow-up colonoscopy as an outpatient Patient Condition at Discharge: Fair Plan - Discharge Summary New Discharge Prescriptions: No Action Pravastatin Sodium [Pravachol] 40 mg PO DAILY Losartan [Cozaar] 50 mg PO DAILY Aspirin EC [Ecotrin Low Dose] 81 mg PO DAILY Furosemide [Lasix] 40 mg PO DAILY Meclizine [Antivert] 25 mg PO TID PRN #0 tab PRN Reason: dizziness Warfarin [Coumadin] 5 mg PO SUWESA Warfarin [Coumadin] 7.5 mg PO MOTUTHFR Metoprolol Tartrate [Lopressor] 50 mg PO DAILY Nitroglycerin Sl Tabs [Nitrostat] 0.4 mg SUBLINGUAL Q5M PRN PRN Reason: Angina Spironolactone [Aldactone] 25 mg PO DAILY Discharge Medication List Aspirin EC [Ecotrin Low Dose] 81 mg PO DAILY 01/15/16 [History] Furosemide [Lasix] 40 mg PO DAILY 01/15/16 [History] Losartan [Cozaar] 50 mg PO DAILY 01/15/16 [History] Pravastatin Sodium [Pravachol] 40 mg PO DAILY 01/15/16 [History] Meclizine [Antivert] 25 mg PO TID PRN #0 tab 01/16/16 [Rx] Metoprolol Tartrate [Lopressor] 50 mg PO DAILY 02/08/17 [History] Nitroglycerin Sl Tabs [Nitrostat] 0.4 mg SUBLINGUAL Q5M PRN 02/08/17 [History] Spironolactone [Aldactone] 25 mg PO DAILY 02/08/17 [History] Warfarin [Coumadin] 5 mg PO SUWESA 02/08/17 [History] Warfarin [Coumadin] 7.5 mg PO MOTUTHFR 02/08/17 [History] Follow up Appointment(s)/Referral(s): Can Blue MD [STAFF PHYSICIAN] - 1 Week (To establish for primary care) Van Madrid MD [STAFF PHYSICIAN] - 2 Weeks None,Stated [Primary Care Provider] - 1-2 days Jose Luis Britt MD [STAFF PHYSICIAN] - 1 Week Patient Instructions/Handouts: Bowel Obstruction (DC) Activity/Diet/Wound Care/Special Instructions: Soft diet. Avoid fresh fruits or vegetables, avoid tough meat. Discharge Disposition: HOME SELF-CARE
== END 2017-02-13 14:44 | disposition home or self-care (01) | DRG 389 ==
LOC: EC 11:02 → 3SUR 14:52
PROVIDERS: ADMIT Surgery; ATTEND Surgery
PROC: 0D9670Z Drainage of Stomach with Drainage Device, Via Natural or Artificial Opening (ICD-10-PCS; principal; 2017-02-09)
DX: K56.7 Ileus, unspecified (principal); I50.32 Chronic diastolic (congestive) heart failure; I11.0 Hypertensive heart disease with heart failure; I27.2 Other secondary pulmonary hypertension; I48.1 Persistent atrial fibrillation; I48.2 Chronic atrial fibrillation; Z95.1 Presence of aortocoronary bypass graft; E78.5 Hyperlipidemia, unspecified; E87.6 Hypokalemia; M54.5 Low back pain; G89.29 Other chronic pain; I25.10 Atherosclerotic heart disease of native coronary artery without angina pectoris; I25.2 Old myocardial infarction; M19.91 Primary osteoarthritis, unspecified site; H26.9 Unspecified cataract; H54.62 Unqualified visual loss, left eye, normal vision right eye; E66.9 Obesity, unspecified; Z79.01 Long term (current) use of anticoagulants; Z79.82 Long term (current) use of aspirin; Z79.899 Other long term (current) drug therapy; Z86.73 Personal history of transient ischemic attack (TIA), and cerebral infarction without residual deficits; Z87.891 Personal history of nicotine dependence; Z95.5 Presence of coronary angioplasty implant and graft; Z88.5 Allergy status to narcotic agent; Z88.2 Allergy status to sulfonamides
CPT/HCPCS: 36415; 74020; 74177; 74270; 80048; 80053; 81001; 82150; 83605; 83690; 83735; 84132; 85025; 85610; 87086; 93005; 94760; 96360; 96361; 99285

== ENCOUNTER 2017-03-09 06:45 | Day surgery (SDC) | payer MEDICARE, OTHER ==
[2017-03-08 08:20] VITALS: BMI 34.2
[~2017-03-09 06:45] MED LIST: LACTATED RINGERS 1,000 ML IV SCH
[2017-03-09 07:12] VITALS: TEMP 97
[2017-03-09] MEDS ORDERED: LIDOCAINE 1% INJ 10MG/ML (20 ML MDV) ONE (07:49)
[2017-03-09] MEDS ORDERED: PROPOFOL 10 MG/ML 20 ML VIAL IV ONE (07:49)
--- NOTE | 2017-03-09 07:56 | P.GSHP ---
History of Present Illness H&P Date: 03/09/17 Chief Complaint: Screening colonoscopy This 82-year-old male who presents today for screening colonoscopy. Patient has never had a colonoscopy before. She had a recent hospital physician for colonic obstruction related to ileus. Past Medical History Past Medical History: Coronary Artery Disease (CAD), Cancer, Chest Pain / Angina , Heart Failure, CVA/TIA, Eye Disorder, Hyperlipidemia, Hypertension, Myocardial Infarction (UT), Osteoarthritis (OA) Additional Past Medical History / Comment(s): several TIA, UT's-at least 5, prostate cancer being monitored-recent PSA was significantly, stoke 12/2015- left side -gait "is off" diff with balance and moving leg, left arm diff with fine motor skills and numberness left arm. can not walk far distance, change in bowel patterns Last Myocardial Infarction Date:: 2001 History of Any Multi-Drug Resistant Organisms: None Reported Past Surgical History: Appendectomy, Back Surgery, Coronary Bypass/CABG, Heart Catheterization With Stent Additional Past Surgical History / Comment(s): 10 PLUS STENTS, 1988 CABG with 3 vessel bypass, hemorrhoidectomy, multiple back surgeries, back epidural injections, L eye laser sx due to "something burst in that eye", rt carotid endarterectomy Past Anesthesia/Blood Transfusion Reactions: No Reported Reaction Date of Last Stent Placement:: 2008 Smoking Status: Former smoker - Past Family History Father Family Medical History: Myocardial Infarction (UT) Additional Family Medical History / Comment(s): Father of a UT in his 40' s. Pt's grandfather on his dad's side in his 40's of a UT Mother Family Medical History: Coronary Artery Disease (CAD) Additional Family Medical History / Comment(s): Mother lived into her 90's. Sister(s) Family Medical History: Cancer Medications and Allergies Home Medications Medication Instructions Recorded Confirmed Type Aspirin EC [Ecotrin Low Dose] 81 mg PO DAILY 01/15/16 03/09/17 History Furosemide [Lasix] 40 mg PO DAILY 01/15/16 03/09/17 History Losartan [Cozaar] 50 mg PO DAILY 01/15/16 03/09/17 History Pravastatin Sodium [Pravachol] 40 mg PO DAILY 01/15/16 03/09/17 History Meclizine [Antivert] 25 mg PO TID PRN #0 tab 01/16/16 03/09/17 Rx Metoprolol Tartrate [Lopressor] 50 mg PO DAILY 02/08/17 03/09/17 History Nitroglycerin Sl Tabs [Nitrostat] 0.4 mg SUBLINGUAL Q5M PRN 02/08/17 03/09/17 History Spironolactone [Aldactone] 25 mg PO DAILY 02/08/17 03/09/17 History Warfarin [Coumadin] 5 mg PO SUWESA 02/08/17 03/09/17 History Warfarin [Coumadin] 7.5 mg PO MOTUTHFR 02/08/17 03/09/17 History Allergies Allergy/AdvReac Type Severity Reaction Status Date / Time morphine Allergy Anaphylaxis Verified 03/08/17 08:09 Sulfa (Sulfonamide Allergy Anaphylaxis Verified 03/08/17 08:09 Antibiotics) Surgical - Exam Vital Signs Temp Pulse Resp BP Pulse Ox 97.0 F L 73 16 144/85 98 03/09/17 07:10 03/09/17 07:10 03/09/17 07:10 03/09/17 07:10 03/09/17 07:10 - General well developed, no distress - Eyes PERRL - ENT normal pinna - Neck no masses - Respiratory normal expansion - Cardiovascular Rhythm: regular - Abdomen Abdomen: soft, non tender Assessment and Plan Plan: A 2-year-old male who has never had a colonoscopy. Patient will undergo screening colonoscopy
--- NOTE | 2017-03-09 08:13 | P.OP ---
Date of Procedure: 03/09/17 Preoperative Diagnosis: Screening colonoscopy Postoperative Diagnosis: Internal hemorrhoids Rectal polyp Diverticulosis Procedure(s) Performed: Colonoscopy Anesthesia: MAC Surgeon: Jose Luis Britt Pathology: other (Rectal polyp) Condition: stable Disposition: PACU Description of Procedure: Patient's placed on the endoscopy table in the lateral position. He received IV sedation. Digital rectal exam was performed which revealed internal hemorrhoids. Flexible colonoscope was then placed patient anus and passed throughout the entire colon. The ileocecal valve was visualized. The cecum and ascending colon and transverse colon appeared normal. In the descending and sigmoid colon there appeared to be evidence of diverticular changes. There is no evidence of diverticulitis. Scope was then brought back the rectum and a small sessile polyp was removed the forcep. Scope was withdrawn through the anus and internal hemorrhoids noted. Scope was withdrawn for patient.
[2017-03-09 09:15] VITALS: RESP 18
[2017-03-09 09:21] VITALS: PULSE 57
[2017-03-09 09:36] VITALS: BP 137/82
== END 2017-03-09 09:56 | disposition home or self-care (01) ==
LOC: ORWHC2ENDO 06:45
PROVIDERS: ATTEND Surgery
DX: Z12.11 Encounter for screening for malignant neoplasm of colon (principal); K62.1 Rectal polyp; K57.30 Diverticulosis of large intestine without perforation or abscess without bleeding; K64.8 Other hemorrhoids; I25.119 Atherosclerotic heart disease of native coronary artery with unspecified angina pectoris; I50.9 Heart failure, unspecified; E78.5 Hyperlipidemia, unspecified; I10 Essential (primary) hypertension; M19.90 Unspecified osteoarthritis, unspecified site; C61 Malignant neoplasm of prostate; Z79.82 Long term (current) use of aspirin; Z88.5 Allergy status to narcotic agent; Z88.2 Allergy status to sulfonamides; Z79.01 Long term (current) use of anticoagulants; Z79.899 Other long term (current) drug therapy; I25.2 Old myocardial infarction; Z86.73 Personal history of transient ischemic attack (TIA), and cerebral infarction without residual deficits; Z82.49 Family history of ischemic heart disease and other diseases of the circulatory system; Z95.1 Presence of aortocoronary bypass graft; Z95.5 Presence of coronary angioplasty implant and graft
CPT/HCPCS: 45380; 93005; 88305; J2001; J2704

== ENCOUNTER → 2018-05-26 | Outpatient (CLI) | payer OTHER ==
[2018-05-26 11:11] LABS: HCT 42.7 % (39.0-53.0); HGB 13.5 gm/dL (13.0-17.5); MCH 31.9 pg (25.0-35.0); MCHC 31.6 g/dL (31.0-37.0); Macrocytosis Slight; Mean Platelet Volume 7.1; Platelet Count 197 k/uL (150-450); RBC 4.23 m/uL (4.30-5.90); RDW 14.1 % (11.5-15.5); WBC 9.4 k/uL (3.8-10.6)
[2018-05-26 11:27] LABS: Potassium 4.8 mmol/L (3.5-5.1)
== END | disposition home or self-care (01) ==
LOC: LABPAT 09:57
PROVIDERS: ATTEND Internal Medicine Interventional Cardiology
DX: Z01.812 Encounter for preprocedural laboratory examination (principal); I25.10 Atherosclerotic heart disease of native coronary artery without angina pectoris; E78.00 Pure hypercholesterolemia, unspecified
CPT/HCPCS: 36415; 80051; 82565; 84520; 85027

== ENCOUNTER 2018-05-28 16:04 | Inpatient (IN) | payer OTHER, MEDICARE ==
[2018-05-28] MEDS ORDERED: IPRATROPIUM-ALBUTEROL 3 ML NEB INHALATION STA (16:16)
--- NOTE | 2018-05-28 16:16 | ED ---
SOB HPI - General Chief Complaint: Shortness of Breath Stated Complaint: CHF Time Seen by Provider: 05/28/18 16:11 Source: patient, RN notes reviewed, old records reviewed Mode of arrival: wheelchair Limitations: no limitations - History of Present Illness Initial Comments: This is an 83-year-old male the ER for evaluation regarding shortness of breath today. Patient presents with persistent shortness of breath 3 days patient has been unable to get out of his chair to walk or move around the house. Unable to lay down in bed secondary to shortness of breath. Patient has significant edema and edema of upper extremities edema of lower extremities and he says edema scrotal and penis MD Complaint: shortness of breath -: days(s) (3) Radiation: other (No pain) Severity: mild Severity scale (1-10): 2 Consistency: constant Improves With: rest Worsens With: exertion Known History Of: congestive heart failure Associated Symptoms: other (Lower extremity edema) Treatments Prior to Arrival: none - Related Data Home Medications Medication Instructions Recorded Confirmed Aspirin EC [Ecotrin Low Dose] 81 mg PO DAILY 01/15/16 05/28/18 Furosemide [Lasix] 40 mg PO DAILY 01/15/16 05/28/18 Pravastatin Sodium [Pravachol] 40 mg PO DAILY 01/15/16 05/28/18 Metoprolol Tartrate [Lopressor] 50 mg PO DAILY 02/08/17 05/28/18 Nitroglycerin Sl Tabs [Nitrostat] 0.4 mg SUBLINGUAL Q5M PRN 02/08/17 05/28/18 Spironolactone [Aldactone] 25 mg PO DAILY 02/08/17 05/28/18 Isosorbide Mononitrate ER [Imdur] 60 mg PO DAILY 05/28/18 05/28/18 Losartan [Cozaar] 25 mg PO DAILY 05/28/18 05/28/18 Multivitamins, Thera [Multivitamin 1 tab PO DAILY 05/28/18 05/28/18 (formulary)] Potassium Chloride ER [K-Dur 20] 20 meq PO DAILY 05/28/18 05/28/18 Travoprost [Travatan Z 0.004%] 1 drop BOTH EYES DAILY 05/28/18 05/28/18 Vit C/E/Zn/Coppr/Lutein/Zeaxan 1 cap PO DAILY 05/28/18 05/28/18 [Preservision Areds 2 Softgel] Warfarin [Coumadin] 7.5 mg PO DAILY 05/28/18 05/28/18 Previous Rx's Medication Instructions Recorded Meclizine [Antivert] 25 mg PO TID PRN #0 tab 01/16/16 Allergies Allergy/AdvReac Type Severity Reaction Status Date / Time morphine Allergy Anaphylaxis Verified 05/28/18 16:36 Sulfa (Sulfonamide Allergy Anaphylaxis Verified 05/28/18 16:36 Antibiotics) Review of Systems ROS Statement: Those systems with pertinent positive or pertinent negative responses have been documented in the HPI. ROS Other: All systems not noted in ROS Statement are negative. Past Medical History Past Medical History: Coronary Artery Disease (CAD), Cancer, Chest Pain / Angina , Heart Failure, CVA/TIA, Eye Disorder, Hyperlipidemia, Hypertension, Myocardial Infarction (HI), Osteoarthritis (OA) Additional Past Medical History / Comment(s): several TIA, HI's-at least 5, prostate cancer being monitored-recent PSA was significantly, stoke 12/2015- left side -gait "is off" diff with balance and moving leg, left arm diff with fine motor skills and numberness left arm. can not walk far distance, change in bowel patterns Last Myocardial Infarction Date:: 2001 History of Any Multi-Drug Resistant Organisms: None Reported Past Surgical History: Appendectomy, Back Surgery, Coronary Bypass/CABG, Heart Catheterization With Stent Additional Past Surgical History / Comment(s): 10 PLUS STENTS, 1988 CABG with 3 vessel bypass, hemorrhoidectomy, multiple back surgeries, back epidural injections, L eye laser sx due to "something burst in that eye", rt carotid endarterectomy Past Anesthesia/Blood Transfusion Reactions: No Reported Reaction Date of Last Stent Placement:: 2008 Past Psychological History: Anxiety, Depression Smoking Status: Former smoker Past Alcohol Use History: None Reported Past Drug Use History: None Reported - Past Family History Father Family Medical History: Myocardial Infarction (HI) Additional Family Medical History / Comment(s): Father of a HI in his 40' s. Pt's grandfather on his dad's side in his 40's of a HI Mother Family Medical History: Coronary Artery Disease (CAD) Additional Family Medical History / Comment(s): Mother lived into her 90's. Sister(s) Family Medical History: Cancer General Exam Limitations: no limitations General appearance: alert, in no apparent distress Head exam: Present: atraumatic, normocephalic, normal inspection Eye exam: Present: normal appearance, PERRL, EOMI. Absent: scleral icterus, conjunctival injection, periorbital swelling ENT exam: Present: normal exam, mucous membranes moist Neck exam: Present: normal inspection. Absent: tenderness, meningismus, lymphadenopathy Respiratory exam: Present: normal lung sounds bilaterally. Absent: respiratory distress, wheezes, rales, rhonchi, stridor Cardiovascular Exam: Present: regular rate, normal rhythm, normal heart sounds. Absent: systolic murmur, diastolic murmur, rubs, gallop, clicks GI/Abdominal exam: Present: soft, normal bowel sounds. Absent: distended, tenderness, guarding, rebound, rigid Extremities exam: Present: normal inspection, full ROM, tenderness, pedal edema , joint swelling. Absent: calf tenderness Back exam: Present: normal inspection Neurological exam: Present: alert, oriented X3, CN II-XII intact Psychiatric exam: Present: normal affect, normal mood Skin exam: Present: warm, dry, intact, normal color. Absent: rash Course Vital Signs 05/28/18 05/28/18 05/28/18 16:07 16:30 16:54 Temperature 98.0 F Pulse Rate 82 125 H 130 H Respiratory 20 28 H 22 Rate Blood Pressure 150/80 108/90 102/80 O2 Sat by Pulse 99 100 98 Oximetry 05/28/18 05/28/18 16:56 17:03 Temperature Pulse Rate 110 H 123 H Respiratory Rate Blood Pressure O2 Sat by Pulse Oximetry - Reevaluation(s) Reevaluation #1: 05/28/18 16:20 Medical record is reviewed Reevaluation #2: 05/28/18 16:[address] Madrid regarding patient, he did call ahead patient has severe CHF with history of mild kidney disease. Medical Decision Making - Medical Decision Making 83 male the ER with Cockman is CHF A. fib with RVR. Patient will be admitted for rate control artery on anticoagulation, patient also placed under diuresis and evaluation by cardiology - Lab Data Result diagrams: 05/28/18 16:30 05/28/18 16:30 Lab Results 12/29/18 12/29/18 12/29/18 Range/Units 16:30 16:30 16:30 WBC 9.4 (3.8-10.6) k/uL RBC 4.39 (4.30-5.90) m/uL Hgb 14.1 (13.0-17.5) gm/dL Hct 43.3 (39.0-53.0) % MCV 98.6 (80.0-100.0) fL MCH 32.2 (25.0-35.0) pg MCHC 32.6 (31.0-37.0) g/dL RDW 14.0 (11.5-15.5) % Plt Count 210 (150-450) k/uL Neutrophils % 77 % Lymphocytes % 12 % Monocytes % 8 % Eosinophils % 1 % Basophils % 0 % Neutrophils # 7.2 (1.3-7.7) k/uL Lymphocytes # 1.1 (1.0-4.8) k/uL Monocytes # 0.8 (0-1.0) k/uL Eosinophils # 0.1 (0-0.7) k/uL Basophils # 0.0 (0-0.2) k/uL PT (9.0-12.0) sec INR (<1.2) APTT (22.0-30.0) sec Sodium 139 (137-145) mmol/L Potassium 4.5 (3.5-5.1) mmol/L Chloride 106 (98-107) mmol/L Carbon Dioxide 24 (22-30) mmol/L Anion Gap 9 mmol/L BUN 35 H (9-20) mg/dL Creatinine 1.41 H (0.66-1.25) mg/dL Est GFR (CKD-EPI)AfAm 53 (>60 ml/min/1.73 sqM) Est GFR (CKD-EPI)NonAf 46 (>60 ml/min/1.73 sqM) Glucose 112 H (74-99) mg/dL Calcium 9.8 (8.4-10.2) mg/dL Magnesium 2.3 (1.6-2.3) mg/dL Total Bilirubin 0.9 (0.2-1.3) mg/dL AST 23 (17-59) U/L ALT 30 (21-72) U/L Alkaline Phosphatase 84 (38-126) U/L Total Creatine Kinase 48 L (55-170) U/L Total Protein 6.5 (6.3-8.2) g/dL Albumin 4.1 (3.5-5.0) g/dL 05/28/18 Range/Units 16:30 WBC (3.8-10.6) k/uL RBC (4.30-5.90) m/uL Hgb (13.0-17.5) gm/dL Hct (39.0-53.0) % MCV (80.0-100.0) fL MCH (25.0-35.0) pg MCHC (31.0-37.0) g/dL RDW (11.5-15.5) % Plt Count (150-450) k/uL Neutrophils % % Lymphocytes % % Monocytes % % Eosinophils % % Basophils % % Neutrophils # (1.3-7.7) k/uL Lymphocytes # (1.0-4.8) k/uL Monocytes # (0-1.0) k/uL Eosinophils # (0-0.7) k/uL Basophils # (0-0.2) k/uL PT 30.8 H (9.0-12.0) sec INR 3.2 H (<1.2) APTT 31.3 H (22.0-30.0) sec Sodium (137-145) mmol/L Potassium (3.5-5.1) mmol/L Chloride (98-107) mmol/L Carbon Dioxide (22-30) mmol/L Anion Gap mmol/L BUN (9-20) mg/dL Creatinine (0.66-1.25) mg/dL Est GFR (CKD-EPI)AfAm (>60 ml/min/1.73 sqM) Est GFR (CKD-EPI)NonAf (>60 ml/min/1.73 sqM) Glucose (74-99) mg/dL Calcium (8.4-10.2) mg/dL Magnesium (1.6-2.3) mg/dL Total Bilirubin (0.2-1.3) mg/dL AST (17-59) U/L ALT (21-72) U/L Alkaline Phosphatase (38-126) U/L Total Creatine Kinase (55-170) U/L Total Protein (6.3-8.2) g/dL Albumin (3.5-5.0) g/dL - EKG Data -: EKG Interpreted by Me (EKG shows A. fib with RVR rate of 1:30, QRS 134, QTc 545) - Radiology Data Radiology results: report reviewed (Chest x-ray is significant for small pleural effusions), image reviewed Critical Care Time Critical Care Time: Yes Total Critical Care Time: 31 Disposition Clinical Impression: Congestive heart failure, Acute pulmonary edema, Atrial fibrillation with RVR Disposition: ADMITTED IP TO THIS HOSP Condition: Fair Is patient prescribed a controlled substance at d/c from ED?: No Referrals: None,Stated [Primary Care Provider] - 1-2 days
[2018-05-28] MEDS ORDERED: DILTIAZEM DRIP BOLUS FROM BAG 1 MG SOLN IV ONE (16:23)
[2018-05-28] MEDS ORDERED: FUROSEMIDE 10 MG/ML 10 ML VIAL IV STA (16:26)
[2018-05-28 16:46] LABS: Basophils % (A) 0 %; Eosinophils # (A) 0.1 k/uL (0-0.7); Eosinophils % (A) 1 %; HCT 43.3 % (39.0-53.0); HGB 14.1 gm/dL (13.0-17.5); Lymphocytes # (A) 1.1 k/uL (1.0-4.8); Lymphocytes % (A) 12 %; MCH 32.2 pg (25.0-35.0); MCHC 32.6 g/dL (31.0-37.0); MCV 98.6 fL (80.0-100.0); Mean Platelet Volume 7.5; Monocytes # (A) 0.8 k/uL (0-1.0); Monocytes % (A) 8 %; Neutrophils # (A) 7.2 k/uL (1.3-7.7); Neutrophils % (A) 77 %; Platelet Count 210 k/uL (150-450); RBC 4.39 m/uL (4.30-5.90); WBC 9.4 k/uL (3.8-10.6)
[2018-05-28] MEDS: DILTIAZEM 50 MG in SODIUM CHLORIDE 0.9% 40 ML IV SCH (16:46)
--- NOTE | 2018-05-28 16:59 | XR ---
EXAMINATION TYPE: XR chest 2V DATE OF EXAM: 05/28/2018 COMPARISON: 01/02/2016 HISTORY: Difficulty breathing TECHNIQUE: Frontal and lateral views of the chest are obtained. FINDINGS: Heart is enlarged. There is blunting of costophrenic angles posteriorly. There is no heart failure. There are sternal wires. There are chest leads. Lungs are clear of consolidation. IMPRESSION: Cardiomegaly. Small pleural effusions. No heart failure. Small pleural effusions are new compared to old exam.
[2018-05-28 17:01] LABS: INR 3.2 (<1.2); Partial Thromboplastin Time 31.3 sec (22.0-30.0); Prothrombin Time 30.8 sec (9.0-12.0)
[2018-05-28 17:04] LABS: Albumin 4.1 g/dL (3.5-5.0); Calcium 9.8 mg/dL (8.4-10.2); Magnesium 2.3 mg/dL (1.6-2.3); Potassium 4.5 mmol/L (3.5-5.1); Total Bilirubin 0.9 mg/dL (0.2-1.3); Total Protein 6.5 g/dL (6.3-8.2)
[2018-05-28 17:16] LABS: Creatine Kinase MB 1.6 ng/mL (0.0-2.4)
[2018-05-28 17:21] LABS: Troponin I 0.058 ng/mL (0.000-0.034)
[2018-05-28] MEDS ORDERED: FUROSEMIDE 10 MG/ML 4 ML VIAL IV SCH (21:00)
[2018-05-29] MEDS ORDERED: NITROGLYCERIN SL TABS 0.4 MG TAB SUBLINGUAL PRN (00:39)
[2018-05-29 01:38] LABS: Appearance,Urine Clear (Clear); Bacteria,Urine Rare /hpf; Bilirubin,Urine Negative (Negative); Blood,Urine Small (Negative); Color,Urine Light Yellow; Glucose,Urine (UA) Negative (Negative); Hyaline Casts,Urine 23 /lpf (0-2); Ketones,Urine Negative (Negative); Leukocyte Esterase,Urine Small (Negative); Mucus,Urine Rare /hpf; Nitrite,Urine Negative (Negative); Protein,Urine Negative (Negative); RBC,Urine 3 /hpf (0-5); Specific Gravity,Urine 1.008 (1.001-1.035); Squamous Epithelial Cell,Urine <1 /hpf (0-4); Urobilinogen,Urine <2.0 mg/dL (<2.0); WBC,Urine 2 /hpf (0-5)
[2018-05-29] MEDS: DILTIAZEM 50 MG in SODIUM CHLORIDE 0.9% 40 ML IV SCH ×2 (04:35→12:37)
[2018-05-29] MEDS: FUROSEMIDE 10 MG/ML 4 ML VIAL IV SCH ×4 (05:52→20:38)
[2018-05-29 06:14] LABS: Basophils % (A) 0 %; Eosinophils # (A) 0.1 k/uL (0-0.7); Eosinophils % (A) 1 %; HCT 37.8 % (39.0-53.0); HGB 12.5 gm/dL (13.0-17.5); Lymphocytes # (A) 0.9 k/uL (1.0-4.8); Lymphocytes % (A) 10 %; MCH 32.7 pg (25.0-35.0); MCHC 33.1 g/dL (31.0-37.0); MCV 98.8 fL (80.0-100.0); Mean Platelet Volume 7.2; Monocytes # (A) 0.7 k/uL (0-1.0); Monocytes % (A) 8 %; Neutrophils # (A) 7.2 k/uL (1.3-7.7); Neutrophils % (A) 79 %; Platelet Count 146 k/uL (150-450); RBC 3.83 m/uL (4.30-5.90); RDW 14.1 % (11.5-15.5); WBC 9.1 k/uL (3.8-10.6)
[2018-05-29 06:28] LABS: INR 3.1 (<1.2); Prothrombin Time 29.7 sec (9.0-12.0)
[2018-05-29 06:29] LABS: Albumin 3.5 g/dL (3.5-5.0); Calcium 9.2 mg/dL (8.4-10.2); Potassium 4.3 mmol/L (3.5-5.1); Total Protein 5.7 g/dL (6.3-8.2)
[2018-05-29] MEDS: IOPAMIDOL-300 CONTRAST 30 ML VIAL (ORAL USE) PO PRN ×2 (06:55→08:07)
[2018-05-29] MEDS ORDERED: METOPROLOL TARTRATE 50 MG TAB PO SCH (09:00)
[2018-05-29] MEDS ORDERED: MECLIZINE 25 MG TAB PO PRN (09:00)
[2018-05-29] MEDS ORDERED: ISOSORBIDE MONONITRATE ER 60 MG TAB.ER.24H PO SCH (09:00)
[2018-05-29] MEDS: VIT A,C & E-LUTEIN-MINERALS 1 EACH TAB PO SCH (09:06)
[2018-05-29] MEDS: ASPIRIN 81 MG PO SCH (09:06)
--- NOTE | 2018-05-29 09:06 | HP ---
HISTORY AND PHYSICAL DATE OF SERVICE: 05/28/2018 CHIEF COMPLAINT: Shortness of breath and atrial ablation. HISTORY OF PRESENT ILLNESS: This 83-year-old gentleman with a past medical history of multiple medical problems including CAD, multiple stents, history of chest pain, CHF, CVA, TIA, history of hyperlipidemia, hypertension, myocardial infarction, left-sided stroke, history of CAD and CABG being followed by Dr. Antwan Chambers previously and Dr. Madrid recently, had progressive shortness of breath for the past several weeks. The patient also had some chest pressure. The patient was evaluated as an outpatient. Dr. Madrid is planning cardiac catheterization soon but, however, because of increasing shortness of breath and other medical issues, the family called Dr. Madrid's office and subsequently came to [facility] Emergency Room and was admitted for further evaluation and treatment. The patient has been unable to get out of the chair. According t5o the family, the patient is also noted to have progress weakness. At this time significant swelling was noted in the legs and as well as the scrotal and the genital area as well. The patient had CABG several years ago. The patient also had some diarrhea and sweating recently also. After admission the INR was found to be 3.2. Creatinine is 1.41. Troponin 0.058 and 0.064. BNP elevated to 7840. A chest x-ray which was personally reviewed by me showed evidence of CHF and cardiomegaly and patient admitted for further evaluation and treatment. There is no history of any fever, rigors. No headache, loss of consciousness, seizures at this time. PAST MEDICAL HISTORY: History of CAD, multiple stents, history of stroke, history of CHF, history hypertension, history of myocardial infarction, history of TIA, history of CAD, CABG, stent. MEDICATIONS ARE: 1. Coumadin 7.5 mg p.o. daily. 2. Vitamin C, zinc, copper 1 p.o. daily. 3. Travatan 1 drop daily. 4. Aldactone 25 mg daily. 5. Pravachol 40 mg daily. 6. Claritin 10 mg p.o. daily. 7. Nitrostat 0.4 mg p.r.n. 8. Multivitamins 1 p.o. daily. 9. Lopressor 50 mg. 10.Antivert 25 mg t.i.d. p.r.n. 11.Cozaar 25 mg p.o. daily. 12.Imdur 60 mg p.o. daily. 13.Lasix 40 mg p.o. daily. 14.Ecotrin 81 mg p.o. daily. ALLERGIES: MORPHINE, SULFA. FAMILY HISTORY: History of myocardial infarction in the family. SOCIAL HISTORY: Previous history of smoking. Occasional alcohol intake. REVIEW OF SYSTEMS: ENT No history of diminished hearing or vision. CARDIOVASCULAR As mentioned earlier. RESPIRATORY No cough, no hemoptysis. GI No nausea, vomiting, or diarrhea. No dysuria. NERVOUS As mentioned earlier. ALLERGY/IMMUNOLOGY No asthma or hayfever. MUSCULOSKELETAL: As mentioned earlier. HEMATOLOGY/ONCOLOGY Negative. ENDOCRINE No history of diabetes or hypothyroidism. SKIN Negative. CONSTITUTIONAL As mentioned earlier. PSYCH As mentioned earlier. PHYSICAL EXAMINATION: GENERAL Patient is alert and oriented times three. VITAL SIGNS Pulse is 111, blood pressure is ( ), respirations 18, temperature 97.4, pulse ox 90% on 2 liters. HEENT Pupils equal. Conjunctivae normal. Oral mucosa moist. NECK Jugular venous distention ( ). RESPIRATORY Breath sounds diminished at the bases. Bilateral scattered crackles and rhonchi. HEART S1 and S2, muffled, irregular. ABDOMEN Distended, nontender. Gaseous distention. No ascites. The flanks are dull on percussion. LEGS Bilateral pitting edema extensively up to the thigh. Penile and scrotal edema also present. Pulses diminished bilaterally. NERVOUS Higher functions as mentioned earlier. Moves all four limbs. LYMPHATICS No lymph node in neck or axilla. LABS: WBC 9.2, hemoglobin 14.1. INR 3.2. Sodium 139, potassium 4.5 and troponin 0.058. ASSESSMENT: 1. Congestive heart failure acute exacerbation with possible acute on chronic systolic dysfunction. 2. Chest pain, rule out acute non ST elevated myocardial infarction. 3. Troponin 0.064. 4. Increased creatinine with chronic kidney disease stage 3. 5. Coumadin monitor. 6. Left-sided weakness with old stroke. 7. History of CAD, CABG, stent. 8. History of CHF. 9. Hypertension. 10.Hyperlipidemia. 11.Extensive bilateral lower leg and genital edema. 12.History of degenerative joint disease. 13.History of myocardial infarction. 14.History of multiple TIAs. 15.History of prostate cancer. 16.Anxiety, depression. RECOMMENDATION: This 83-year-old gentleman who presented with multiple complicated medical issues, will monitor the patient closely, continue the current management and symptomatic treatment. Will initiate IV Lasix. Monitor fluid and electrolytes balance closely. Monitor renal functions closely. I would also recommend Cardiology and Nephrology evaluations, a 2D echo with Doppler, repeat labs, possible cardiac cath. Overall prognosis extremely guarded because of multiple complex medical issues. I would also recommend a CT scan of the chest and abdomen and pelvis also to complete the workup. Other than that further, see orders for details. Resume the home medications. Discussed with the patient and family at length. MMODL / IJN: [id number] /
[2018-05-29] MEDS: PRAVASTATIN SODIUM 40 MG TAB PO SCH (09:07)
[2018-05-29] MEDS: SPIRONOLACTONE 25 MG TAB PO SCH (09:07)
[2018-05-29] MEDS: LATANOPROST 0.005% OPHTH DROPS 2.5 ML BTL BOTH EYES SCH (09:07)
[2018-05-29] MEDS: POTASSIUM CHLORIDE ER 20 MEQ TAB.ER PO SCH (09:07)
--- NOTE | 2018-05-29 09:27 | CT ---
EXAMINATION TYPE: CT ChestAbdPelvis wo con DATE OF EXAM: 05/29/2018 COMPARISON: 02/09/2017 HISTORY: chest pain abd swelling, pericardial thickening CT DLP: 1231.8mGycm Unenhanced CT of the Chest, Abdomen and Pelvis Unenhanced CT of the chest ,abdomen and pelvis is performed. The lack of intravenous contrast limits evaluation of the solid and hollow viscera. Oral contrast: Yes CT Chest: LUNGS: Bilateral pleural effusions right greater than left. Cardiomegaly with coronary artery calcifi cations. MEDIASTINUM: Thoracic aorta is of normal caliber. The heart is enlarged. No evidence of pericardial effusion. No evidence for mediastinal mass or adenopathy. HILAR STRUCTURES: No evidence for mass. No hilar adenopathy is appreciated. OTHER: No significant abnormality. CONTRAST CT ABDOMEN AND PELVIS: LIVER/GB: No calcified gallstones. No space occupying hepatic lesion. Biliary tree is of normal ca liber. PANCREAS: No inflammation. No distinct mass. SPLEEN: No splenic enlargement. No lesion seen. ADRENALS: No nodule. No thickening. KIDNEYS/BLADDER: No hydronephrosis. No nephrolithiasis. Right mid pole renal cortical cyst measurin g 3.4 cm. Littlejohn balloon catheter is noted within the urinary bladder. BOWEL: Normal appendix. Normal small bowel caliber. No inflammation. Large bowel is mildly distende d. GENITAL ORGANS: No gross abnormality. LYMPH NODES: No greater than 1cm abdominal or pelvic lymph nodes are appreciated. AORTA: No significant abnormality. OSSEOUS STRUCTURES: No significant abnormality is seen. OTHER: No significant additional abnormality is seen. IMPRESSION: 1. Bilateral pleural effusions. 2. Cardiomegaly without pericardial effusion. Coronary artery calcifications. 3. Mildly distended large bowel.
[2018-05-29] MEDS: LOSARTAN 25 MG TAB PO SCH (10:21)
[2018-05-29] MEDS: MULTIVITAMINS, THERA 1 EACH TAB PO SCH (12:37)
--- NOTE | 2018-05-29 14:19 | P.CRDCN ---
History of Present Illness History of present illness: This is Dr. Lester dictating a consult on this patient The patient was interviewed and examined by me IMPRESSION / ASSESSMENT: Persistent Atrial fibrillation with RVR and associated shortness of breath with minimal exertion and even lying in bed for the last several weeks at least Coronary artery disease status post coronary artery bypass graft and multiple stents PLAN: Anticoagulation and rate control of atrial fibrillation of a persistent Reassessment of LV function once rates are controlled Reassessment of symptoms of shortness of breath on exertion once rate is controlled Continue Coumadin HPI 83-year-old male patient presenting with shortness of breath for the last 3 days and unable to get out of his chair and walk around the house. Short of breath while lying flat in bed He was noted to have significant edema in both upper and lower extremities as well as scrotal Known history of coronary artery disease status post coronary artery bypass grafting coronary angiography and coronary stenting. He has had multiple stents in the past and has bypass surgery was in 1988. He's had a right carotid endarterectomy ROS: No fever chills or rigors, no cough, phlegm or expectoration, no nausea, vomiting or diarrhea, no hematuria, dysuria, no musculoskeletal complaints, no strokes or seizures, no skin lesions. EXAMINATION Tachycardic, irregular Positive JVD bilateral lower extremity edema Abdominal distention Reduced breath sounds bilaterally REVIEW OF LABS, ECG Hemoglobin 12.5 which is decreased from 14.1, normal sodium and potassium, BUN 34 creatinine 1.3-1.4 Abnormal troponins of 0.05 0.06 and 0.07 In 2016 his 2-D echo showed a low normal left radical ejection fraction with basal inferior and basal inferoseptal hypokinesis with RV enlargement Twelve-lead ECG on May 28 shows atrial fibrillation with a right bundle branch block with Q waves anteriorly/anterior septum RVR 1:30 beats a minute Past Medical History Past Medical History: Coronary Artery Disease (CAD), Cancer, Chest Pain / Angina , Heart Failure, CVA/TIA, Eye Disorder, Hyperlipidemia, Hypertension, Myocardial Infarction (OK), Osteoarthritis (OA) Additional Past Medical History / Comment(s): several TIA, OK's-at least 5, prostate cancer being monitored-recent PSA was significantly, stoke 12/2015- left side -gait "is off" diff with balance and moving leg, left arm diff with fine motor skills and numberness left arm. can not walk far distance, change in bowel patterns Last Myocardial Infarction Date:: 2001 History of Any Multi-Drug Resistant Organisms: None Reported Past Surgical History: Appendectomy, Back Surgery, Coronary Bypass/CABG, Heart Catheterization With Stent Additional Past Surgical History / Comment(s): 10 PLUS STENTS, 1988 CABG with 3 vessel bypass, hemorrhoidectomy, multiple back surgeries, back epidural injections, L eye laser sx due to "something burst in that eye", rt carotid endarterectomy Past Anesthesia/Blood Transfusion Reactions: No Reported Reaction Date of Last Stent Placement:: 2008 Past Psychological History: Anxiety, Depression Additional Psychological History / Comment(s): . 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 1 ppd. Past Drug Use History: None Reported - Past Family History Father Family Medical History: Myocardial Infarction (OK) Additional Family Medical History / Comment(s): Father of a OK in his 40' s. Pt's grandfather on his dad's side in his 40's of a OK Mother Family Medical History: Coronary Artery Disease (CAD) Additional Family Medical History / Comment(s): Mother lived into her 90's. Sister(s) Family Medical History: Cancer Medications and Allergies Home Medications Medication Instructions Recorded Confirmed Type Furosemide [Lasix] 40 mg PO DAILY 01/15/16 05/28/18 History Pravastatin Sodium [Pravachol] 40 mg PO DAILY 01/15/16 05/28/18 History RX: Aspirin EC [Ecotrin Low Dose] 81 mg PO DAILY 01/15/16 05/28/18 History RX: Meclizine [Antivert] 25 mg PO TID PRN #0 tab 01/16/16 05/28/18 Rx Metoprolol Tartrate [Lopressor] 50 mg PO DAILY 02/08/17 05/28/18 History Nitroglycerin Sl Tabs [Nitrostat] 0.4 mg SUBLINGUAL Q5M PRN 02/08/17 05/28/18 History Spironolactone [Aldactone] 25 mg PO DAILY 02/08/17 05/28/18 History Isosorbide Mononitrate ER [Imdur] 60 mg PO DAILY 05/28/18 05/28/18 History Multivitamins, Thera [Multivitamin 1 tab PO DAILY 05/28/18 05/28/18 History (formulary)] Potassium Chloride ER [K-Dur 20] 20 meq PO DAILY 05/28/18 05/28/18 History RX: Losartan [Cozaar] 25 mg PO DAILY 05/28/18 05/28/18 History Travoprost [Travatan Z 0.004%] 1 drop BOTH EYES DAILY 05/28/18 05/28/18 History Vit C/E/Zn/Coppr/Lutein/Zeaxan 1 cap PO DAILY 05/28/18 05/28/18 History [Preservision Areds 2 Softgel] Warfarin [Coumadin] 7.5 mg PO DAILY 05/28/18 05/28/18 History Allergies Allergy/AdvReac Type Severity Reaction Status Date / Time morphine Allergy Anaphylaxis Verified 05/28/18 16:36 Sulfa (Sulfonamide Allergy Anaphylaxis Verified 05/28/18 16:36 Antibiotics) Physical Exam Vitals: Vital Signs Temp Pulse Pulse Resp BP BP Pulse Ox 05/29/18 07:44 97.4 F L 112 H 18 127/88 97 05/29/18 04:00 97.4 F L 90 18 121/75 97 05/28/18 23:40 111 H 18 05/28/18 23:39 97.2 F L 111 H 18 97/73 98 05/28/18 20:00 98.0 F 86 18 98/59 99 05/28/18 18:10 124 H 22 102/75 96 05/28/18 18:00 116 H 22 97/76 96 05/28/18 17:50 115 H 27 H 99/80 96 05/28/18 17:40 123 H 24 101/80 97 05/28/18 17:30 108 H 22 113/99 97 05/28/18 17:20 116 H 26 H 113/99 96 05/28/18 17:10 138 H 22 99/65 97 05/28/18 17:03 123 H 05/28/18 17:00 142 H 21 102/80 100 05/28/18 16:56 110 H 05/28/18 16:54 130 H 22 102/80 98 05/28/18 16:50 142 H 18 101/60 100 05/28/18 16:30 125 H 28 H 108/90 100 05/28/18 16:07 98.0 F 82 20 150/80 99 Intake and Output 05/28/18 05/29/18 05/29/18 22:59 06:59 14:59 Intake Total 120 50 160 Output Total 448 750 350 Balance -328 -700 -190 Intake: IV 160 0.9 160 Intake, IV Titration 50 Amount Diltiazem 50 mg In Sodium 50 Chloride 0.9% 40 ml @ 5 MG/HR 5 mls/hr IV .Q10H [facility] Rx#:[id number] Oral 120 Output: Urine 100 750 350 Post Void Residual 348 Other: Voiding Method Indwelling Catheter Indwelling Catheter Indwelling Catheter # Voids 0 Weight 111.13 kg 117 kg Results 05/29/18 05:23 05/29/18 05:23 Cardiac Enzymes 05/28/18 05/28/18 05/28/18 Range/Units 16:30 16:30 23:04 AST 23 (17-59) U/L CK-MB (CK-2) 1.6 (0.0-2.4) ng/mL Troponin I 0.058 H* 0.064 H* (0.000-0.034) ng/mL 05/29/18 05/29/18 Range/Units 05:23 05:23 AST 23 (17-59) U/L CK-MB (CK-2) (0.0-2.4) ng/mL Troponin I 0.068 H* (0.000-0.034) ng/mL Coagulation 05/28/18 05/29/18 Range/Units 16:30 05:23 PT 30.8 H 29.7 H (9.0-12.0) sec APTT 31.3 H (22.0-30.0) sec CBC 05/28/18 05/29/18 Range/Units 16:30 05:23 WBC 9.4 9.1 (3.8-10.6) k/uL RBC 4.39 3.83 L (4.30-5.90) m/uL Hgb 14.1 12.5 L (13.0-17.5) gm/dL Hct 43.3 37.8 L (39.0-53.0) % Plt Count 210 146 L (150-450) k/uL Comprehensive Metabolic Panel 05/28/18 05/29/18 Range/Units 16:30 05:23 Sodium 139 138 (137-145) mmol/L Potassium 4.5 4.3 (3.5-5.1) mmol/L Chloride 106 107 (98-107) mmol/L Carbon Dioxide 24 23 (22-30) mmol/L BUN 35 H 34 H (9-20) mg/dL Creatinine 1.41 H 1.32 H (0.66-1.25) mg/dL Glucose 112 H 95 (74-99) mg/dL Calcium 9.8 9.2 (8.4-10.2) mg/dL AST 23 23 (17-59) U/L ALT 30 30 (21-72) U/L Alkaline Phosphatase 84 64 (38-126) U/L Total Protein 6.5 5.7 L (6.3-8.2) g/dL Albumin 4.1 3.5 (3.5-5.0) g/dL Current Medications Generic Name Dose Route Start Last Admin Trade Name Freq PRN Reason Stop Dose Admin Aspirin 81 mg 05/29/18 09:00 05/29/18 09:06 Aspirin PO 81 mg DAILY [facility] Administration Furosemide 40 mg 05/29/18 06:00 05/29/18 06:11 Lasix IV Not Given Q8HR [facility] Diltiazem HCl 50 mg/ Sodium 50 mls @ 5 mls/hr 05/28/18 17:00 05/29/18 04:35 Chloride IV 5 mg/hr .Q10H [facility] 5 mls/hr Administration 5 MG/HR Isosorbide Mononitrate 60 mg 05/29/18 09:00 Imdur PO DAILY [facility] Latanoprost 1 drops 05/29/18 09:00 05/29/18 09:07 Xalatan 0.005% BOTH EYES 1 drops DAILY [facility] Administration Losartan Potassium 25 mg 05/29/18 09:00 Cozaar PO DAILY [facility] Meclizine HCl 25 mg 05/29/18 09:00 Antivert PO TID PRN dizziness Metoprolol Tartrate 50 mg 05/29/18 09:00 05/29/18 09:07 Lopressor PO 50 mg DAILY [facility] Administration Multivitamins 1 each 05/29/18 12:00 Theragran PO DAILY@1200 [facility] Multivitamins/Minerals 1 each 05/29/18 09:00 05/29/18 09:06 Ivite PO 1 each DAILY [facility] Administration Nitroglycerin 0.4 mg 05/29/18 00:39 Nitrostat SUBLINGUAL Q5M PRN [facility] Potassium Chloride 20 meq 05/29/18 09:00 05/29/18 09:07 K-Dur 20 PO 20 meq DAILY [facility] Administration Pravastatin Sodium 40 mg 05/29/18 09:00 05/29/18 09:07 Pravachol PO 40 mg DAILY [facility] Administration Spironolactone 25 mg 05/29/18 09:00 05/29/18 09:07 Aldactone PO 25 mg DAILY [facility] Administration Warfarin Sodium 7.5 mg 05/29/18 18:00 Coumadin PO DAILY@1800 [facility] Intake and Output 05/28/18 05/29/18 05/29/18 22:59 06:59 14:59 Intake Total 120 50 160 Output Total 448 750 350 Balance -328 -700 -190 Intake: IV 160 0.9 160 Intake, IV Titration 50 Amount Diltiazem 50 mg In Sodium 50 Chloride 0.9% 40 ml @ 5 MG/HR 5 mls/hr IV .Q10H [facility] Rx#:[id number] Oral 120 Output: Urine 100 750 350 Post Void Residual 348 Other: Voiding Method Indwelling Catheter Indwelling Catheter Indwelling Catheter # Voids 0 Weight 111.13 kg 117 kg 05/29/18 05:23 05/29/18 05:23
[2018-05-29] MEDS: METOPROLOL TARTRATE 50 MG TAB PO SCH ×2 (15:30→22:57)
--- NOTE | 2018-05-29 15:44 | XR ---
EXAMINATION TYPE: XR KUB portable DATE OF EXAM: 05/29/2018 COMPARISON: 02/08/2017 HISTORY: Abdominal distention TECHNIQUE: 3 views FINDINGS: There is multiple gas-filled dilated loops of large bowel in the mid abdomen. There is some contrast down to the rectum. I see no sign of free air. IMPRESSION: Dilated large bowel consistent with generalized ileus. No change compared to old exam.
--- NOTE | 2018-05-29 17:23 | PN ---
PROGRESS NOTE DATE OF SERVICE: 05/29/2018 This 83-year-old gentleman who was admitted with CHF acute exacerbation also had chest pain. The patient has been closely monitored at this time. The patient started on IV diuretics and the patient has significant improvement. The patient has mild improvement in the edema. Patient also has significant dilated bowel loops. Abdominal KUB was ordered by me today which showed significant dilated large bowel with generalized ileus. The patient apparently had similar dilatation large bowel after carotid surgery. Surgical evaluation has been sought. PAST MEDICAL HISTORY: Reviewed. REVIEW OF SYSTEMS: Cardiovascular: As mentioned earlier. RESPIRATORY: As mentioned earlier. GI: As mentioned earlier. : No dysuria. CENTRAL NERVOUS SYSTEM: No numbness or weakness. CURRENT MEDICATIONS: 1. Aspirin 81 mg. 2. Cardizem drip. 3. Lasix 40 mg IV b.i.d. 4. Xalatan. 5. Cozaar 25 mg. 6. Antivert 25 mg t.i.d. 7. Lopressor 50 mg q.i.d. 8. I-Lenny. 9. Nitrostat. 10.K-Dur. 11.Pravachol. 12.Aldactone 25 mg. 13.Coumadin 7.5 mg daily. PHYSICAL EXAMINATION: Alert, oriented x3, pulse 112, blood pressure 127/88, respirations 18, temperature 97.4, pulse ox 97% on 2 L. HEENT: Conjunctivae normal. NECK: Jugular venous distention at the root. CARDIOVASCULAR: S1, S2 muffled. Ejection systolic murmur. RESPIRATIONS: Breath sounds diminished in the bases. Scattered rhonchi and crackles. ABDOMEN: Soft. Diffuse distention. Nontender. No guarding. No rigidity. Tympanic bowel sounds increased. LEGS: Bilateral leg edema. NERVOUS SYSTEM: Higher functions as mentioned earlier. Moves all four extremities. No focal deficits. Lymphatics: No lymph nodes palpable in the neck, axillae or groin. SKIN: No ulcers, rashes or bleeding. LABS: WBC 9.2, hemoglobin 12.5, and INR 3.1 and creatinine is 1.32. Troponins are noted. UA noted. Cultures are negative. Otherwise, KUB and other x-rays reviewed. ASSESSMENT: 1. Congestive heart failure acute exacerbation with possible acute on chronic systolic dysfunction. 2. Chest pain, rule out acute non ST-segment elevation myocardial infarction with troponin 0.064. 3. Abdominal distention with possible colonic ileus. 4. Increased creatinine with chronic kidney stage III. 5. History of paralytic ileus, postoperative previously. 6. Coumadin monitoring. 7. Left-sided weakness with recent stroke. 8. History of coronary artery disease, coronary artery bypass grafting stent. 9. History of congestive heart failure. 10.Hypertension. 11.Hyperlipidemia. 12.History of bilateral lower leg edema and genital edema. 13.History of degenerative joint disease. 14.History of myocardial infarction. 15.History of multiple transient ischemic attacks. 16.History of prostate cancer. 17.History of anxiety/depression. RECOMMENDATIONS AND DISCUSSION: Recommend to continue current management. Continue symptomatic treatment. Continue the diuretics. Continue the rest of medications. Closely follow with Cardiology. Also recommend surgical consultation for chronic ileus and distention. Overall prognosis extremely guarded because of multiple complex medical issues. Further recommendations to follow. MMODL / IJN: [id number] /
[2018-05-29] MEDS: WARFARIN 7.5 MG TAB PO SCH (17:28)
[2018-05-30] MEDS: DILTIAZEM 50 MG in SODIUM CHLORIDE 0.9% 40 ML IV SCH ×2 (01:24→08:30)
[2018-05-30 06:41] LABS: INR 3.3 (<1.2); Prothrombin Time 31.5 sec (9.0-12.0)
[2018-05-30 06:42] LABS: Basophils % (A) 0 %; Eosinophils # (A) 0.1 k/uL (0-0.7); Eosinophils % (A) 1 %; HCT 42.1 % (39.0-53.0); HGB 13.9 gm/dL (13.0-17.5); Lymphocytes # (A) 0.8 k/uL (1.0-4.8); Lymphocytes % (A) 10 %; MCH 32.9 pg (25.0-35.0); MCV 99.6 fL (80.0-100.0); Macrocytosis Slight; Mean Platelet Volume 7.1; Monocytes # (A) 0.8 k/uL (0-1.0); Monocytes % (A) 9 %; Neutrophils # (A) 6.9 k/uL (1.3-7.7); Neutrophils % (A) 78 %; Platelet Count 180 k/uL (150-450); RBC 4.22 m/uL (4.30-5.90); WBC 8.9 k/uL (3.8-10.6)
[2018-05-30 07:01] LABS: Potassium 4.3 mmol/L (3.5-5.1)
[2018-05-30 07:02] LABS: Calcium 9.5 mg/dL (8.4-10.2)
[2018-05-30] MEDS: METOPROLOL TARTRATE 50 MG TAB PO SCH ×2 (08:29→18:19)
[2018-05-30] MEDS: ASPIRIN 81 MG PO SCH (08:29)
[2018-05-30] MEDS: LATANOPROST 0.005% OPHTH DROPS 2.5 ML BTL BOTH EYES SCH (08:30)
[2018-05-30] MEDS: SPIRONOLACTONE 25 MG TAB PO SCH (08:30)
[2018-05-30] MEDS: PRAVASTATIN SODIUM 40 MG TAB PO SCH (08:30)
[2018-05-30] MEDS: FUROSEMIDE 10 MG/ML 4 ML VIAL IV SCH ×2 (08:30→20:17)
[2018-05-30] MEDS: VIT A,C & E-LUTEIN-MINERALS 1 EACH TAB PO SCH (08:30)
[2018-05-30] MEDS: POTASSIUM CHLORIDE ER 20 MEQ TAB.ER PO SCH (08:30)
[2018-05-30] MEDS: MULTIVITAMINS, THERA 1 EACH TAB PO SCH (11:41)
[2018-05-30] MEDS: LOSARTAN 25 MG TAB PO SCH (11:41)
--- NOTE | 2018-05-30 12:08 | P.PN ---
Subjective Progress Note Date: 05/30/18 This is an 83-year-old gentleman who presented to the hospital with symptoms of 3 day duration of shortness of breath, significant edema, mild abdominal discomfort. He has a known history of coronary artery disease and prior bypass surgery as well as stent placement, history of right carotid endarterectomy, hyperlipidemia, hypertension chronic persistent atrial fibrillation. Patient has been receiving diuretics for congestive cardiac failure, echocardiogram with Doppler study has been requested which is still pending. Blood pressure this morning 120/80, heart rate 90, 97% on 2 L of oxygen. Patient states he is barely moving his bowels, it is only like water, he had a KUB performed which showed a dilated large bowel consistent with generalized ileus and a surgical consultation has been requested. At the time of my examination this morning, patient states he just feels awful, he is uncomfortable in his abdomen, continues to have significant peripheral edema. He needs to be on Lasix 40 mg every 12 hourly. His INR today is 3.3. Sodium 138, potassium 4.3, BUN 31, creatinine 1.3. Objective - Vital Signs Vital signs: Vital Signs Temp 97.1 F L 05/30/18 07:35 Pulse 97 05/30/18 07:35 Resp 18 05/30/18 07:35 BP 124/84 05/30/18 07:35 Pulse Ox 97 05/30/18 07:35 Intake & Output 05/29/18 05/30/18 05/30/18 18:59 06:59 18:59 Intake Total 200.167 50 155.5 Output Total 1475 1000 Balance -1274.833 -950 155.5 Weight 119.4 kg Intake: IV 160 0.9 160 Intake, IV Titration 40.167 50 35.5 Amount Diltiazem 50 mg In Sodium 40.167 50 35.5 Chloride 0.9% 40 ml @ 5 MG/HR 5 mls/hr IV .Q10H [facility] Rx#:[id number] Oral 120 Output: Urine 1475 1000 Other: Voiding Method Indwelling Catheter Indwelling Catheter Indwelling Catheter # Bowel Movements 2 - Exam PHYSICAL EXAMINATION: GENERAL: 43-year-old gentleman in no acute distress at the time of my examination HEENT: Head is atraumatic, normocephalic. Pupils equal, round. Sclera anicteric. Conjunctiva are clear. Mucous membranes of the mouth are moist. Neck is supple. There is elevated jugular venous pressure. No carotid bruit is heard. HEART EXAMINATION: Heart S1, S2 normal. No murmur or gallop heard. CHEST EXAMINATION: Lungs reveal diminished air entry to bilateral bases. ABDOMEN: For him, distended, hypoactive bowel sounds . EXTREMITIES: 2+ peripheral pulses with no evidence of peripheral edema and no calf tenderness noted. NEUROLOGIC patient is awake, alert and oriented X3. . - Labs CBC & Chem 7: 05/30/18 05:57 05/30/18 05:57 Labs: Abnormal Lab Results - Last 24 Hours (Table) 05/30/18 05/30/18 05/30/18 Range/Units 05:57 05:57 05:57 RBC 4.22 L (4.30-5.90) m/uL Lymphocytes # 0.8 L (1.0-4.8) k/uL PT 31.5 H (9.0-12.0) sec INR 3.3 H (<1.2) Chloride 108 H (98-107) mmol/L Carbon Dioxide 20 L (22-30) mmol/L BUN 31 H (9-20) mg/dL Creatinine 1.35 H (0.66-1.25) mg/dL Glucose 102 H (74-99) mg/dL Assessment and Plan Plan: Assessment and plan #1 congestive heart failure, LV function unknown, echo remains pending. #2 chronic persistent atrial fibrillation, rate under better control today., Anticoagulated. INR 3.3. #3 known history of coronary artery disease with prior bypass surgery and stent placements #4 abdominal pain and distention with evidence of possible ileus #5 hypertension #6 hyperlipidemia Plan We will continue the patient on current dose of IV Lasix. Awaiting surgical consultation regarding the patient's ileus. Continue to monitor his intake and output along with daily weights and daily lytes BUN and creatinine. Continue to monitor daily INRs. DNP note has been reviewed, I agree with a documented findings and plan of care. Patient was seen and examined.
[2018-05-30] MEDS: WARFARIN 7.5 MG TAB PO SCH (14:17)
--- NOTE | 2018-05-30 14:50 | P.GSCN ---
History of Present Illness Consult date: 05/30/18 History of present illness: CHIEF COMPLAINT: Abdominal distention HISTORY OF PRESENT ILLNESS: The patient is an 83-year-old male who comes in with history of abdominal distention. He had multiple prior episodes last being in 2017 during the months of January toward February where had barium enema studies including a screening colonoscopy done at that time. No reports of malignancies were found. He comes in with pre-existing cardiac disease with INR is over 3.0 in nature fibrillation. He has history of carotid disease as well. He states that he was passing flatus as of 2 days ago. Not passing flatus today. He had a small bowel movement today. He feels uncomfortable with a moderate amount of distention. Previously he has been treated with nasogastric tube decompression which was completely unsuccessful. He has past enemas which did help symptoms. No reports of nausea vomiting at this time. No reports of blood in stools. General surgery is consulted for ileus. PAST MEDICAL HISTORY: Please see list PAST SURGICAL HISTORY: Please see list MEDICATIONS: Please see list ALLERGIES: Denies. SOCIAL HISTORY: No illicit drug use or recent tobacco use FAMILY HISTORY: Pertinent for cardiac disease REVIEW OF ORGAN SYSTEMS: CONSTITUTIONAL: No reports of fevers or chills. HEENT: Denies any troubles with the vision or hearing. ENDOCRINE: No reports of hypothyroidism. No diabetes. RESPIRATORY: No recent pneumonias. No dyspnea on exertion. CARDIOVASCULAR: Has arrhythmia. Present admission with A. fib and RVR. Has congestive heart failure. Past history of myocardial infarction. GI: Previous history of abdominal distention and ileus. Last colonoscopy February 2017. MUSCULOSKELETAL: Has occasional joint pain including back pain. NEURO: No seizure disorders or headaches. No recent stroke. History of carotid artery disease. Past history of TIA. PSYCH: No suicidal ideation. Has anxiety and depression HEMATOLOGIC: No personal or family history of DVTs or pulmonary emboli. On anticoagulation for A. fib. SKIN: No rash. No skin cancers. PHYSICAL EXAM: VITAL SIGNS: Reviewed GENERAL: Well-developed pleasant male in no acute distress. HEENT: No scleral icterus. Extraocular movements grossly intact. Moist buccal mucosa. NECK: Supple without lymphadenopathy. CHEST: Unlabored respirations. Equal bilateral excursions. CARDIOVASCULAR: Regular rate regular rhythm rhythm. Distal 2+ pulses. ABDOMEN: Soft, distended. No peritonitis. Minimal generalized ache of the abdomen. No palpable abdominal masses. MUSCULOSKELETAL: No clubbing, cyanosis, or edema. NEURO : No focal or lateralizing signs. Cranial nerves II-12 within normal limits. PSYCH: Alert and oriented to person, place and time. SKIN: Well perfused. Good skin turgor. ASSESSMENT: 1. History of generalized ileus 2. Atrial fibrillation with RVR PLAN: 1. For history of ileus versus large bowel obstruction, recommend enema. 2. Additionally, patient is therapeutic on Coumadin with INR over 3.0. No surgical attention at this time. 3. Alternatively, decompressive colonoscopy also reviewed pending results of enema. Past Medical History Past Medical History: Coronary Artery Disease (CAD), Cancer, Chest Pain / Angina , Heart Failure, CVA/TIA, Eye Disorder, Hyperlipidemia, Hypertension, Myocardial Infarction (AL), Osteoarthritis (OA) Additional Past Medical History / Comment(s): several TIA, AL's-at least 5, prostate cancer being monitored-recent PSA was significantly, stoke 12/2015- left side -gait "is off" diff with balance and moving leg, left arm diff with fine motor skills and numberness left arm. can not walk far distance, change in bowel patterns Last Myocardial Infarction Date:: 2001 History of Any Multi-Drug Resistant Organisms: None Reported Past Surgical History: Appendectomy, Back Surgery, Coronary Bypass/CABG, Heart Catheterization With Stent Additional Past Surgical History / Comment(s): 10 PLUS STENTS, 1988 CABG with 3 vessel bypass, hemorrhoidectomy, multiple back surgeries, back epidural injections, L eye laser sx due to "something burst in that eye", rt carotid endarterectomy Past Anesthesia/Blood Transfusion Reactions: No Reported Reaction Date of Last Stent Placement:: 2008 Past Psychological History: Anxiety, Depression Additional Psychological History / Comment(s): . 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 1 ppd. Past Drug Use History: None Reported - Past Family History Father Family Medical History: Myocardial Infarction (AL) Additional Family Medical History / Comment(s): Father of a AL in his 40' s. Pt's grandfather on his dad's side in his 40's of a AL Mother Family Medical History: Coronary Artery Disease (CAD) Additional Family Medical History / Comment(s): Mother lived into her 90's. Sister(s) Family Medical History: Cancer Medications and Allergies Home Medications Medication Instructions Recorded Confirmed Type Aspirin EC [Ecotrin Low Dose] 81 mg PO DAILY 01/15/16 05/28/18 History Furosemide [Lasix] 40 mg PO DAILY 01/15/16 05/28/18 History Pravastatin Sodium [Pravachol] 40 mg PO DAILY 01/15/16 05/28/18 History Meclizine [Antivert] 25 mg PO TID PRN #0 tab 01/16/16 05/28/18 Rx Metoprolol Tartrate [Lopressor] 50 mg PO DAILY 02/08/17 05/28/18 History Nitroglycerin Sl Tabs [Nitrostat] 0.4 mg SUBLINGUAL Q5M PRN 02/08/17 05/28/18 History Spironolactone [Aldactone] 25 mg PO DAILY 02/08/17 05/28/18 History Isosorbide Mononitrate ER [Imdur] 60 mg PO DAILY 05/28/18 05/28/18 History Losartan [Cozaar] 25 mg PO DAILY 05/28/18 05/28/18 History Multivitamins, Thera [Multivitamin 1 tab PO DAILY 05/28/18 05/28/18 History (formulary)] Potassium Chloride ER [K-Dur 20] 20 meq PO DAILY 05/28/18 05/28/18 History Travoprost [Travatan Z 0.004%] 1 drop BOTH EYES DAILY 05/28/18 05/28/18 History Vit C/E/Zn/Coppr/Lutein/Zeaxan 1 cap PO DAILY 05/28/18 05/28/18 History [Preservision Areds 2 Softgel] Warfarin [Coumadin] 7.5 mg PO DAILY 05/28/18 05/28/18 History Allergies Allergy/AdvReac Type Severity Reaction Status Date / Time morphine Allergy Anaphylaxis Verified 05/28/18 16:36 Sulfa (Sulfonamide Allergy Anaphylaxis Verified 05/28/18 16:36 Antibiotics) Surgical - Exam Vital Signs Temp Pulse Resp BP Pulse Ox 98.0 F 82 20 150/80 99 05/28/18 16:07 05/28/18 16:07 05/28/18 16:07 05/28/18 16:07 05/28/18 16:07 Results - Labs 05/30/18 05:57 05/30/18 05:57 Abnormal Lab Results - Last 24 Hours (Table) 05/30/18 05/30/18 05/30/18 Range/Units 05:57 05:57 05:57 RBC 4.22 L (4.30-5.90) m/uL Lymphocytes # 0.8 L (1.0-4.8) k/uL PT 31.5 H (9.0-12.0) sec INR 3.3 H (<1.2) Chloride 108 H (98-107) mmol/L Carbon Dioxide 20 L (22-30) mmol/L BUN 31 H (9-20) mg/dL Creatinine 1.35 H (0.66-1.25) mg/dL Glucose 102 H (74-99) mg/dL Diabetes panel 05/30/18 Range/Units 05:57 Sodium 138 (137-145) mmol/L Potassium 4.3 (3.5-5.1) mmol/L Chloride 108 H (98-107) mmol/L Carbon Dioxide 20 L (22-30) mmol/L BUN 31 H (9-20) mg/dL Creatinine 1.35 H (0.66-1.25) mg/dL Glucose 102 H (74-99) mg/dL Calcium 9.5 (8.4-10.2) mg/dL Calcium panel 05/30/18 Range/Units 05:57 Calcium 9.5 (8.4-10.2) mg/dL Pituitary panel 05/30/18 Range/Units 05:57 Sodium 138 (137-145) mmol/L Potassium 4.3 (3.5-5.1) mmol/L Chloride 108 H (98-107) mmol/L Carbon Dioxide 20 L (22-30) mmol/L BUN 31 H (9-20) mg/dL Creatinine 1.35 H (0.66-1.25) mg/dL Glucose 102 H (74-99) mg/dL Calcium 9.5 (8.4-10.2) mg/dL Adrenal panel 05/30/18 Range/Units 05:57 Sodium 138 (137-145) mmol/L Potassium 4.3 (3.5-5.1) mmol/L Chloride 108 H (98-107) mmol/L Carbon Dioxide 20 L (22-30) mmol/L BUN 31 H (9-20) mg/dL Creatinine 1.35 H (0.66-1.25) mg/dL Glucose 102 H (74-99) mg/dL Calcium 9.5 (8.4-10.2) mg/dL - Imaging Abdominal x-ray: report reviewed, image reviewed CT scan - abdomen: report reviewed, image reviewed CT scan - pelvis: report reviewed (CT of the abdomen and pelvis is reviewed in detail demonstrating no evidence of pneumoperitoneum or malignancy. Colonic distention particularly involving the transverse colon noted), image reviewed Assessment and Plan (1) Ileus Current Visit: Yes Status: Acute Code(s): K56.7 - ILEUS, UNSPECIFIED SNOMED Code(s): 074142133 (2) Abdominal distention Current Visit: Yes Status: Acute Code(s): R14.0 - ABDOMINAL DISTENSION ( GASEOUS) SNOMED Code(s): 39511604 (3) CAD (coronary artery disease) Current Visit: Yes Status: Acute Code(s): I25.10 - ATHSCL HEART DISEASE OF [place] CORONARY ARTERY W/O ANG PCTRS SNOMED Code(s): 17179772 (4) Atrial fibrillation with RVR Current Visit: Yes Status: Acute Code(s): I48.91 - UNSPECIFIED ATRIAL FIBRILLATION SNOMED Code(s): 681081600616491 (5) Congestive heart failure Current Visit: Yes Status: Acute Code(s): I50.9 - HEART FAILURE, UNSPECIFIED SNOMED Code(s): 52099270
--- NOTE | 2018-05-30 15:11 | US ---
EXAMINATION TYPE: US venous doppler duplex UE LT DATE OF EXAM: 05/30/2018 COMPARISON: NONE CLINICAL HISTORY: 83-year-old male rule out DVT. Swelling, CHF SIDE PERFORMED: Left Technique: Grayscale, color doppler, spectral doppler imaging performed of the deep veins of the upp er extremities. Findings: There is normal flow, compressibility and vascular waveforms. In addition to the deep veins of the u pper extremity, the paired radial and ulnar veins as well as the basilic and cephalic veins were inte rrogated. Left Arm: Negative for DVT IMPRESSION: No evidence for DVT within the left upper extremity.
--- NOTE | 2018-05-30 15:12 | US ---
EXAMINATION TYPE: US venous doppler duplex LE BI DATE OF EXAM: 05/30/2018 2:10 PM COMPARISON: NONE CLINICAL HISTORY: 83-year-old male rule out DVT. Swelling, CHF SIDE PERFORMED: Bilateral TECHNIQUE: The lower extremity deep venous system is examined utilizing real time linear array sonog whitley with graded compression, doppler sonography and color-flow sonography. FINDINGS: VESSELS IMAGED: External Iliac Vein (EIV) Common Femoral Vein Deep Femoral Vein Greater Saphenous Vein * Femoral Vein Popliteal Vein Small Saphenous Vein * Proximal Calf Veins (* superficial vessels) Right Leg: Negative for DVT Left Leg: Negative for DVT Some subcutaneous edema is noted in the soft tissues especially in the popliteal regions. IMPRESSION: No evidence for DVT within the bilateral lower extremities imaged from the groin to the upper calves.
--- NOTE | 2018-05-30 15:25 | ECHOF ---
Referral Reason:heart failure MEASUREMENTS -------- HEIGHT: 180.3 cm WEIGHT: 119.3 kg BP: 122/77 IVSd: 1.5 cm (0.6 - 1.1) LVIDd: 4.6 cm (3.9 - 5.3) LVPWd: 1.5 cm (0.6 - 1.1) IVSs: 1.9 cm LVIDs: 3.8 cm LVPWs: 1.8 cm RVIDd: 3.5 cm (< 3.3) LAESV Index (A-L): 20.76 ml/m Ao Diam: 4.0 cm (2.0 - 3.7) LA Diam: 4.6 cm (2.7 - 3.8) AV Cusp: 1.5 cm (1.5 - 2.6) EPSS: 1.4 cm MV EF SLOPE: 113.16 mm/s (70 - 150) MV EXCURSION: 1.34 cm (> 18.000) FINDINGS -------- Undetermined rhythm. This was a technically difficult study with suboptimal views. The left ventricular size is normal. There is mild concentric left ventricular hypertrophy. Overa ll left ventricular systolic function is moderate-severely impaired with, an EF between 30 - 35 %. Lateral hypokinesis Apical Hypokinesis. The right ventricle is mildly enlarged. Normal LA size by volume 22+/-6 ml/m2. RA appears enlarged. 3 ml of Lumason was utilized for enhancement of images. There is mild to moderate aortic valve sclerosis. There is no evidence of aortic regurgitation. T here is no evidence of aortic stenosis. The mitral valve leaflets are mildly thickened. Mild mitral annular calcification present. Mild-t o-moderate mitral regurgitation is present. Trace tricuspid regurgitation present. Right ventricular systolic pressure is normal at < 35 mmHg. There is no evidence of pulmonary hypertension. The pulmonic valve was not well visualized. The aortic root is borderline dilated, up to 3.8 cm. IVC Not well visulized. There is no pericardial effusion. CONCLUSIONS -------- 1. Undetermined rhythm. 2. This was a technically difficult study with suboptimal views. 3. The left ventricular size is normal. 4. There is mild concentric left ventricular hypertrophy. 5. Overall left ventricular systolic function is moderate-severely impaired with, an EF between 30 - 35 %. 6. Lateral hypokinesis 7. Apical Hypokinesis. 8. The right ventricle is mildly enlarged. 9. Normal LA size by volume 22+/-6 ml/m2. 10. RA appears enlarged. 11. 3 ml of Lumason was utilized for enhancement of images. 12. There is mild to moderate aortic valve sclerosis. 13. The mitral valve leaflets are mildly thickened. 14. Mild mitral annular calcification present. 15. [id number] mitral regurgitation is present. 16. Trace tricuspid regurgitation present. 17. Right ventricular systolic pressure is normal at < 35 mmHg. 18. There is no evidence of pulmonary hypertension. 19. The pulmonic valve was not well visualized. 20. The aortic root is borderline dilated, up to 3.8 cm. 21. IVC Not well visulized. 22. There is no pericardial effusion. [employer]: Hunter Edwards RDCS
--- NOTE | 2018-05-30 16:41 | FL ---
EXAMINATION TYPE: FL single contrast barium enema DATE OF EXAM: 05/30/2018 COMPARISON: Correlation CT 05/29/2018 HISTORY: 83-year-old male large bowel obstruction, volvulus. Abdominal distention and no bowel moveme nts for 4 days. TECHNIQUE: A single contrast barium enema study is performed. 1000 mL of Isovue-370 contrast materia l was utilized. Total fluoroscopy time: 1 minute 31 seconds. Total images: 37. 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 The splenic flexure is dilated up to 11 .1 cm and the transverse colon is dilated up to 14.1 cm. Rectum is relatively collapsed. A ureteral contrast material was administered into the rectum. The markedly distended colon only allo wed filling to the level of the distal transverse colon. However, air filled colon is well visualized proximal to this portion and shows no abnormal narrowing. The opacified left side of the colon shows no abnormal narrowing. IMPRESSION: 1. Severely distended colon. The transverse colon measures up to 14.1 cm and the splenic flexure is d ilated up to 11.1 cm. 2. The marked air distention limits intraluminal opacification. Contrast could only be pushed to the level of the distal transverse colon. No evidence for obstruction or volvulus along the left side of the colon. 3. The more proximal right side of the colon is well delineated due to the air distention and shows n o evidence for obstruction. Appropriate follow-up and management recommended. Severe colonic ileus or Morris syndrome are some considerations.
[2018-05-30] MEDS ORDERED: IPRATROPIUM-ALBUTEROL 3 ML NEB INHALATION PRN (19:06)
[2018-05-30] MEDS ORDERED: ONDANSETRON 4 MG/2 ML VIAL IVP PRN (20:37)
[2018-05-30] MEDS ORDERED: ALPRAZolam 0.25 MG TAB PO PRN (20:37)
[2018-05-30] MEDS: IPRATROPIUM-ALBUTEROL 3 ML NEB INHALATION SCH (21:32)
[2018-05-31] MEDS: METOPROLOL TARTRATE 50 MG TAB PO SCH ×2 (03:44→17:37)
[2018-05-31 06:49] LABS: Basophils % (A) 0 %; Eosinophils % (A) 0 %; HCT 43.9 % (39.0-53.0); HGB 13.7 gm/dL (13.0-17.5); Lymphocytes # (A) 0.7 k/uL (1.0-4.8); Lymphocytes % (A) 7 %; MCH 31.6 pg (25.0-35.0); MCHC 31.3 g/dL (31.0-37.0); Macrocytosis Slight; Mean Platelet Volume 7.2; Monocytes # (A) 0.7 k/uL (0-1.0); Monocytes % (A) 6 %; Neutrophils # (A) 9.1 k/uL (1.3-7.7); Neutrophils % (A) 84 %; Platelet Count 190 k/uL (150-450); RBC 4.35 m/uL (4.30-5.90); RDW 14.4 % (11.5-15.5); WBC 10.9 k/uL (3.8-10.6)
[2018-05-31 07:05] LABS: INR 3.2 (<1.2); Prothrombin Time 30.8 sec (9.0-12.0)
[2018-05-31 07:20] LABS: Calcium 9.4 mg/dL (8.4-10.2); Potassium 3.4 mmol/L (3.5-5.1)
[2018-05-31] MEDS: IPRATROPIUM-ALBUTEROL 3 ML NEB INHALATION SCH ×3 (08:48→20:00)
[2018-05-31] MEDS: LOSARTAN 25 MG TAB PO SCH (09:32)
[2018-05-31] MEDS: PRAVASTATIN SODIUM 40 MG TAB PO SCH (09:32)
[2018-05-31] MEDS: ASPIRIN 81 MG PO SCH (09:32)
[2018-05-31] MEDS: VIT A,C & E-LUTEIN-MINERALS 1 EACH TAB PO SCH (09:32)
[2018-05-31] MEDS: POTASSIUM CHLORIDE ER 20 MEQ TAB.ER PO SCH (09:32)
[2018-05-31] MEDS: MULTIVITAMINS, THERA 1 EACH TAB PO SCH (09:32)
[2018-05-31] MEDS: SPIRONOLACTONE 25 MG TAB PO SCH (09:32)
[2018-05-31] MEDS: FUROSEMIDE 10 MG/ML 4 ML VIAL IV SCH ×2 (09:36→22:14)
[2018-05-31] MEDS: DILTIAZEM 50 MG in SODIUM CHLORIDE 0.9% 40 ML IV SCH (11:25)
[2018-05-31] MEDS: LATANOPROST 0.005% OPHTH DROPS 2.5 ML BTL BOTH EYES SCH (11:25)
[2018-05-31] MEDS: WARFARIN 7.5 MG TAB PO SCH (11:29)
--- NOTE | 2018-05-31 12:22 | P.PN ---
Subjective Progress Note Date: 05/31/18 CHIEF COMPLAINT: Abdominal distention HISTORY OF PRESENT ILLNESS: The patient is an 83-year-old male who comes in with history of abdominal distention. He had a barium enema yesterday to exclude underlying volvulus which was negative. He reports feeling better today than yesterday. He is passing minimal flatus. He reports having 2 small bowel movements following the enema however not recorded. He still has A. fib with occasional RVR. PHYSICAL EXAM: VITAL SIGNS: Reviewed GENERAL: Well-developed pleasant male in no acute distress. HEENT: No scleral icterus. Extraocular movements grossly intact. Moist buccal mucosa. NECK: Supple without lymphadenopathy. CHEST: Unlabored respirations. Equal bilateral excursions. CARDIOVASCULAR: Irregular rate irregular rhythm. Distal 2+ pulses. ABDOMEN: Soft, distended. No peritonitis. Nontender. Less firm than yesterday. MUSCULOSKELETAL: No clubbing, cyanosis. 1 + edema remedies NEURO : No focal or lateralizing signs. Cranial nerves II-12 within normal limits. PSYCH: Alert and oriented to person, place and time. SKIN: Well perfused. Good skin turgor. ASSESSMENT: 1. History of generalized ileus 2. Atrial fibrillation with RVR 3. Ischemic cardiomyopathy PLAN: 1. We'll repeat abdominal x-rays however will most benefit from decompressive colonoscopy as transverse colon was dilated to over 10 cm 2. Alternatives such as neostigmine is contraindicated with current atrial fibrillation and RVR 3. No prep at this time with his recent enema 4. He is intermediate to high risk for complications with therapeutic INR of 3.0 including moderately distended colon. Patient is aware of the risk wish to proceed 5. NPO after midnight Objective - Vital Signs Vital signs: Vital Signs Temp 96.6 F L 05/31/18 09:20 Pulse 113 H 05/31/18 11:25 Resp 16 05/31/18 11:25 BP 131/78 05/31/18 11:25 Pulse Ox 100 05/31/18 11:25 Intake & Output 05/30/18 05/31/18 05/31/18 18:59 06:59 18:59 Intake Total 430.5 20 90 Output Total 200 750 400 Balance 230.5 -730 -310 Weight 119.4 kg 115.5 kg Intake: IV 35 20 0.9 35 20 Intake, IV Titration 35.5 Amount Diltiazem 50 mg In Sodium 35.5 Chloride 0.9% 40 ml @ 5 MG/HR 5 mls/hr IV .Q10H [facility] Rx#:[id number] Oral 360 90 Output: Urine 750 Stool 200 400 Other: Voiding Method Indwelling Catheter Indwelling Catheter Indwelling Catheter # Voids 0 - Labs CBC & Chem 7: 05/31/18 06:19 05/31/18 06:19 Labs: Abnormal Lab Results - Last 24 Hours (Table) 05/31/18 05/31/18 05/31/18 Range/Units 06:19 06:19 06:19 WBC 10.9 H (3.8-10.6) k/uL MCV 101.0 H (80.0-100.0) fL Neutrophils # 9.1 H (1.3-7.7) k/uL Lymphocytes # 0.7 L (1.0-4.8) k/uL PT 30.8 H (9.0-12.0) sec INR 3.2 H (<1.2) Potassium 3.4 L (3.5-5.1) mmol/L Carbon Dioxide 20 L (22-30) mmol/L BUN 31 H (9-20) mg/dL Glucose 104 H (74-99) mg/dL Assessment and Plan (1) Ileus Current Visit: Yes Status: Acute Code(s): K56.7 - ILEUS, UNSPECIFIED SNOMED Code(s): 374396975 (2) Abdominal distention Current Visit: Yes Status: Acute Code(s): R14.0 - ABDOMINAL DISTENSION ( GASEOUS) SNOMED Code(s): 91479888 (3) CAD (coronary artery disease) Current Visit: Yes Status: Acute Code(s): I25.10 - ATHSCL HEART DISEASE OF [place] CORONARY ARTERY W/O ANG PCTRS SNOMED Code(s): 31668229 (4) Atrial fibrillation with RVR Current Visit: Yes Status: Acute Code(s): I48.91 - UNSPECIFIED ATRIAL FIBRILLATION SNOMED Code(s): 845726544688185 (5) Congestive heart failure Current Visit: Yes Status: Acute Code(s): I50.9 - HEART FAILURE, UNSPECIFIED SNOMED Code(s): 11960889
[2018-05-31] MEDS ORDERED: POTASSIUM CHLORIDE ER 20 MEQ TAB.ER PO STA (13:43)
[2018-05-31] MEDS ORDERED: Magnesium Replacement Protocol 1 EACH MISC MISCELLANE PRN (13:44)
--- NOTE | 2018-05-31 14:37 | XR ---
EXAMINATION TYPE: XR abdomen 2V DATE OF EXAM: 05/31/2018 COMPARISON: 02/08/2017 HISTORY: Abdominal distention TECHNIQUE: Supine and upright views FINDINGS: There are multiple dilated gas-filled loops of large bowel. There is no sign of free air. L alessia bases appear clear of consolidation. There are no pathologic calcifications over the kidneys. IMPRESSION: Extensive large bowel gas consistent with generalized ileus. No free air. No change.
--- NOTE | 2018-05-31 14:46 | P.PN ---
Subjective Impression looks better today. His bili is still distended but he seems to be having some bowel movements Abdomen is still tense Bilateral lower extremity edema is present Blood pressure 131/78 mmHg heart rate 113 beats a minute Short of breath with at rest mildly Heart sounds are irregular Abdomen is distended Extremities bilateral lower extremity edema His atrial fibrillation is still associated with an RVR. He is currently on metoprolol 100 mg twice daily but I doubt if he is adequately absorbing these medications and therefore I will start him on IV Cardizem 5 mg per hour once again for the next 48 hours and hopefully by then his intestinal absorption of his cardiac medications would improve Continue diuresis Objective - Vital Signs Vital signs: Vital Signs Temp 96.6 F L 05/31/18 09:20 Pulse 114 H 05/31/18 13:46 Resp 16 05/31/18 11:25 BP 131/78 05/31/18 11:25 Pulse Ox 100 05/31/18 11:25 Intake & Output 05/30/18 05/31/18 05/31/18 18:59 06:59 18:59 Intake Total 430.5 20 180 Output Total 200 750 400 Balance 230.5 -730 -220 Weight 119.4 kg 115.5 kg Intake: IV 35 20 0.9 35 20 Intake, IV Titration 35.5 Amount Diltiazem 50 mg In Sodium 35.5 Chloride 0.9% 40 ml @ 5 MG/HR 5 mls/hr IV .Q10H [facility] Rx#:[id number] Oral 360 180 Output: Urine 750 Stool 200 400 Other: Voiding Method Indwelling Catheter Indwelling Catheter Indwelling Catheter # Voids 0 - Labs CBC & Chem 7: 05/31/18 06:19 05/31/18 06:19 Labs: Abnormal Lab Results - Last 24 Hours (Table) 05/31/18 05/31/18 05/31/18 Range/Units 06:19 06:19 06:19 WBC 10.9 H (3.8-10.6) k/uL MCV 101.0 H (80.0-100.0) fL Neutrophils # 9.1 H (1.3-7.7) k/uL Lymphocytes # 0.7 L (1.0-4.8) k/uL PT 30.8 H (9.0-12.0) sec INR 3.2 H (<1.2) Potassium 3.4 L (3.5-5.1) mmol/L Carbon Dioxide 20 L (22-30) mmol/L BUN 31 H (9-20) mg/dL Glucose 104 H (74-99) mg/dL
[2018-06-01] MEDS: DILTIAZEM 50 MG in SODIUM CHLORIDE 0.9% 40 ML IV SCH ×3 (06:39→17:22)
[2018-06-01 06:59] LABS: INR 2.9 (<1.2); Prothrombin Time 27.7 sec (9.0-12.0)
[2018-06-01 07:03] LABS: Magnesium 1.9 mg/dL (1.6-2.3); Potassium 3.2 mmol/L (3.5-5.1)
[2018-06-01 07:10] LABS: Basophils # (A) 0.1 k/uL (0-0.2); Basophils % (A) 1 %; Eosinophils # (A) 0.1 k/uL (0-0.7); Eosinophils % (A) 1 %; HCT 41.8 % (39.0-53.0); HGB 13.6 gm/dL (13.0-17.5); Lymphocytes # (A) 1.1 k/uL (1.0-4.8); Lymphocytes % (A) 11 %; MCH 31.7 pg (25.0-35.0); MCHC 32.5 g/dL (31.0-37.0); MCV 97.7 fL (80.0-100.0); Mean Platelet Volume 7.4; Monocytes # (A) 0.8 k/uL (0-1.0); Monocytes % (A) 8 %; Neutrophils # (A) 7.8 k/uL (1.3-7.7); Neutrophils % (A) 77 %; Platelet Count 198 k/uL (150-450); RBC 4.28 m/uL (4.30-5.90); RDW 14.2 % (11.5-15.5); WBC 10.1 k/uL (3.8-10.6)
[2018-06-01] MEDS: METOPROLOL TARTRATE 50 MG TAB PO SCH ×2 (07:33→17:21)
[2018-06-01] MEDS: IPRATROPIUM-ALBUTEROL 3 ML NEB INHALATION SCH ×3 (08:13→21:22)
[2018-06-01] MEDS: MULTIVITAMINS, THERA 1 EACH TAB PO SCH (09:04)
[2018-06-01] MEDS: VIT A,C & E-LUTEIN-MINERALS 1 EACH TAB PO SCH (09:04)
[2018-06-01] MEDS: POTASSIUM CHLORIDE ER 20 MEQ TAB.ER PO SCH (09:04)
[2018-06-01] MEDS: POTASSIUM CHLORIDE 10 MEQ in WATER FOR INJECTION 1 100ML.BAG IVPB SCH ×2 (10:22→11:29)
[2018-06-01] MEDS: LATANOPROST 0.005% OPHTH DROPS 2.5 ML BTL BOTH EYES SCH (10:23)
[2018-06-01] MEDS: FUROSEMIDE 10 MG/ML 4 ML VIAL IV SCH ×2 (10:23→21:45)
[2018-06-01] MEDS: WARFARIN 7.5 MG TAB PO SCH (13:00)
--- NOTE | 2018-06-01 13:09 | P.PN ---
Subjective Progress Note Date: 06/01/18 This is an 83-year-old gentleman who presented to the hospital with symptoms of 3 day duration of shortness of breath, significant edema, mild abdominal discomfort. He has a known history of coronary artery disease and prior bypass surgery as well as stent placement, history of right carotid endarterectomy, hyperlipidemia, hypertension chronic persistent atrial fibrillation. Patient has been receiving diuretics for congestive cardiac failure, echocardiogram with Doppler study has been requested which is still pending. Blood pressure this morning 120/80, heart rate 90, 97% on 2 L of oxygen. Patient states he is barely moving his bowels, it is only like water, he had a KUB performed which showed a dilated large bowel consistent with generalized ileus and a surgical consultation has been requested. At the time of my examination this morning, patient states he just feels awful, he is uncomfortable in his abdomen, continues to have significant peripheral edema. He needs to be on Lasix 40 mg every 12 hourly. His INR today is 3.3. Sodium 138, potassium 4.3, BUN 31, creatinine 1.3. 06/01/2018 Patient was seen and examined this morning, continues to be on a Cardizem drip at 5 mg per hour. We will continue this for the next couple of days. Patient is scheduled today to undergo colonoscopy by Dr. Carlisle. He is sitting up in the chair today, and does state that he feels better overall. Continues to have significantly firm abdomen. Blood pressure 128/80 with a heart rate in the 80s, 96% on 2 L of oxygen. White blood cell count 10.1, hemoglobin 13.6, platelet count 198. INR 2.9. Sodium 140, potassium 3.2, BUN 31, creatinine 1.2. Magnesium 1.9. Objective - Vital Signs Vital signs: Vital Signs Temp 96.7 F L 06/01/18 10:00 Pulse 85 06/01/18 11:42 Resp 16 06/01/18 11:42 BP 129/80 06/01/18 11:42 Pulse Ox 96 06/01/18 11:42 Intake & Output 05/31/18 06/01/18 06/01/18 18:59 06:59 18:59 Intake Total 420 50 240 Output Total 900 2250 900 Balance -480 -2200 -660 Weight 116 kg Intake: IV 40 Diltiazem 50 mg In Sodium 40 Chloride 0.9% 40 ml @ 5 MG/HR 5 mls/hr IV .Q10H [facility] Rx#:[id number] Intake, IV Titration 50 200 Amount Diltiazem 50 mg In Sodium 50 Chloride 0.9% 40 ml @ 5 MG/HR 5 mls/hr IV .Q10H [facility] Rx#:[id number] Potassium Chloride 10 meq 200 In Water For Injection 1 100ml.bag @ 100 mls/hr IVPB Q1H [facility] Rx#: [id number] Oral 420 Output: Urine 500 1250 900 Stool 400 1000 Other: Voiding Method Indwelling Catheter Indwelling Catheter Indwelling Catheter # Voids 0 0 - Exam PHYSICAL EXAMINATION: GENERAL: 43-year-old gentleman in no acute distress at the time of my examination HEENT: Head is atraumatic, normocephalic. Pupils equal, round. Sclera anicteric. Conjunctiva are clear. Mucous membranes of the mouth are moist. Neck is supple. There is elevated jugular venous pressure. No carotid bruit is heard. HEART EXAMINATION: Heart S1, S2 normal. No murmur or gallop heard. CHEST EXAMINATION: Lungs reveal diminished air entry to bilateral bases. ABDOMEN: For him, distended, hypoactive bowel sounds . EXTREMITIES: 2+ peripheral pulses with no evidence of peripheral edema and no calf tenderness noted. NEUROLOGIC patient is awake, alert and oriented X3. . - Labs CBC & Chem 7: 06/01/18 06:31 06/01/18 06:31 Labs: Abnormal Lab Results - Last 24 Hours (Table) 06/01/18 06/01/18 06/01/18 Range/Units 06:31 06:31 06:31 RBC 4.28 L (4.30-5.90) m/uL Neutrophils # 7.8 H (1.3-7.7) k/uL PT 27.7 H (9.0-12.0) sec INR 2.9 H (<1.2) Potassium 3.2 L (3.5-5.1) mmol/L BUN 31 H (9-20) mg/dL Creatinine 1.28 H (0.66-1.25) mg/dL Glucose 100 H (74-99) mg/dL Assessment and Plan Plan: Assessment and plan #1 congestive heart failure, LV function unknown, echo remains pending. #2 chronic persistent atrial fibrillation, rate under better control today., Anticoagulated. INR 3.3. #3 known history of coronary artery disease with prior bypass surgery and stent placements #4 abdominal pain and distention with evidence of possible ileus #5 hypertension #6 hyperlipidemia Plan We will continue the patient on current dose of IV Lasix. Continue IV Cardizem at 5 mg per hour for next 2 days . Patient scheduled for colonoscopy today. DNP note has been reviewed, I agree with a documented findings and plan of care. Patient was seen and examined.
[2018-06-01] MEDS ORDERED: PROPOFOL 10 MG/ML 20 ML VIAL IV ONE (14:36)
[2018-06-01] MEDS ORDERED: LACTATED RINGERS 1,000 ML IV ONE ×2 (14:46→15:05)
--- NOTE | 2018-06-01 15:09 | P.PCN ---
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 ANESTHESIA: MAC. INDICATIONS: The patient is a 83-year-old male who presents with severe colonic distention secondary to Morris syndrome and severe ileus. Colonoscopy decompression was described. Benefits and risks were described and informed consent was obtained. DESCRIPTION OF PROCEDURE: The patient had not undergone a bowel prep secondary to volume overload and atiral fibrillation with RVR. He had been brought into the operating room and laid in the left lateral decubitus position. After adequate intravenous sedation , the rectum was examined with 2% lidocaine jelly. No external hemorrhoids were encountered. The rectal tone was within normal limits. No lesions were palpated in the rectal vault. An Olympus colonoscope was advanced past the moderately distended transverse colon to the ascending colon which was immediately decompressed. No large tumors were identified. The scope was removed. The colon was desufflated. The patient had tolerated the procedure well. At the end of the procedure, his moderate abdominal distention completely resolved. Withdrawal time was over 6 minutes. FINDINGS: Moderately distended transverse colon including the proximal descending colon decompressed RECOMMENDATIONS: 1. Recommend treatment for atrial fibrillation with RVR 2. Lower endoscopy decompression as needed
[2018-06-01] MEDS: LOSARTAN 25 MG TAB PO SCH (17:21)
[2018-06-01] MEDS: PRAVASTATIN SODIUM 40 MG TAB PO SCH (17:21)
[2018-06-01] MEDS: SPIRONOLACTONE 25 MG TAB PO SCH (17:21)
[2018-06-01] MEDS: ASPIRIN 81 MG PO SCH (17:21)
--- NOTE | 2018-06-01 18:25 | P.PN ---
Progress Note - Text Progress Note Date: 06/01/18 Patient has bradford catheter. Recommend discontinue bradford. Consult urologist.
[2018-06-01] MEDS ORDERED: Potassium Replacement Protocol 1 EACH MISC MISCELLANE PRN (20:12)
--- NOTE | 2018-06-01 20:14 | P.PN ---
Subjective Progress Note Date: 05/30/18 Progress note being dictated for Dr. Leiva. Interval history: Is as an 83-year-old gentleman admitted with acute CHF exacerbation, chest pain, possible acute non-STEMI, abdominal distention with colonic ileus, acute on chronic renal failure and multiple other medical issues. Telemetry reporting atrial fibrillation, rate better controlled. Maintained on Cardizem drip. INR 3.3. Diuresing well on Lasix IV push with 24- hour I&O reflecting a negative fluid balance. Significant edema of left upper and bilateral lower extremities, Dopplers ordered.Echo suboptimal, reporting moderately severe impaired LV function, EF between 30 and 35% lateral and apical hypokinesis, mild to moderate mitral regurgitation aortic root borderline dilated up to 3.8 cm. , significantly distended abdomen, ileus. Evaluated by surgery with barium enema recommended . Denies chest pain, palpitations. Creatinine 1.35. Objective - Vital Signs Vital signs: Vital Signs Temp 97.4 F L 05/30/18 16:00 Pulse 75 05/30/18 16:00 Resp 18 05/30/18 16:00 BP 128/88 05/30/18 16:00 Pulse Ox 96 05/30/18 16:00 Intake & Output 05/30/18 05/30/18 05/31/18 06:59 18:59 06:59 Intake Total 50 430.5 Output Total 1000 200 Balance -950 230.5 Weight 119.4 kg 119.4 kg Intake: IV 35 0.9 35 Intake, IV Titration 50 35.5 Amount Diltiazem 50 mg In Sodium 50 35.5 Chloride 0.9% 40 ml @ 5 MG/HR 5 mls/hr IV .Q10H [facility] Rx#:[id number] Oral 360 Output: Urine 1000 Stool 200 Other: Voiding Method Indwelling Catheter Indwelling Catheter # Bowel Movements 2 - Exam PHYSICAL EXAM: VITAL SIGNS: As above GENERAL: Sitting up in bed, no acute distress HEENT: Conjunctivae normal. eyes normal. Oral mucosa dry. NECK: No JVD. No thyroid enlargement. No LNs CARDIOVASCULAR: S1, S2 muffled. No murmur RESPIRATION: Breath sounds diminished in the bases. No rhonchi or crackles. ABDOMEN: Firm, distended, minimal abdominal tenderness . Hypoactive bowel sounds No guarding. no masses palpable. EXTREMITIES: Left upper and bilateral lower extremity edema PSYCHIATRY: Alert and oriented -3, mood and affect normal. NERVOUS SYSTEM: Cranial N 2-12 grossly normal. Moves all 4 limbs. Diffuse weakness No focal deficits. - Labs CBC & Chem 7: 06/01/18 06:31 06/01/18 06:31 Labs: Abnormal Lab Results - Last 24 Hours (Table) 05/30/18 05/30/18 05/30/18 Range/Units 05:57 05:57 05:57 RBC 4.22 L (4.30-5.90) m/uL Lymphocytes # 0.8 L (1.0-4.8) k/uL PT 31.5 H (9.0-12.0) sec INR 3.3 H (<1.2) Chloride 108 H (98-107) mmol/L Carbon Dioxide 20 L (22-30) mmol/L BUN 31 H (9-20) mg/dL Creatinine 1.35 H (0.66-1.25) mg/dL Glucose 102 H (74-99) mg/dL Assessment and Plan Assessment: -. Acute on Chronic CHF, systolic dysfunction -Chest pain, ruling out acute non-STEMI with troponin 0.064 -Abdominal distention with possible colonic ileus -Chronic persistent atrial fibrillation -.Acute on chronic renal failure, stage III -History of paralytic ileus -Coumadin monitoring -Recent stroke with residual left-sided weakness -CAD, history of CABG -Hyperlipidemia - hypertension Plan: Continue on current medication regime ,monitoring and symptomatic treatment. Nebulized bronchodilators scheduled as well as prn. Ultrasound of left upper extremity and bilateral lower legs ordered given significant edema. Barium enema ordered, potential decompression colonoscopy pending enema results. INR 3.3, Hold Coumadin. Antiarrhythmics, anticoagulation as per cardiology. Close monitoring of renal function, electrolyte with repeat labs ordered for a.m. Further recommendations to follow. The impression and plan of care has been dictated as directed. : I performed a history and examination of this patient, discussed the same with the dictator. I agree with the dictator's note ,documented as a scribe. Any additional findings or plans will be noted.
--- NOTE | 2018-06-01 20:32 | P.PN ---
Subjective Progress Note Date: 05/31/18 Progress note being dictated for Dr. Leiva. Interval history: Is as an 83-year-old gentleman admitted with acute CHF exacerbation, chest pain, possible acute non-STEMI, abdominal distention with colonic ileus, acute on chronic renal failure and multiple other medical issues. Telemetry reporting atrial fibrillation, rate better controlled. Maintained on Cardizem drip. INR 3.3. Diuresing well on Lasix IV push with 24- hour I&O reflecting a negative fluid balance. Significant edema of left upper and bilateral lower extremities, Dopplers ordered.Echo suboptimal, reporting moderately severe impaired LV function, EF between 30 and 35% lateral and apical hypokinesis, mild to moderate mitral regurgitation aortic root borderline dilated up to 3.8 cm. , significantly distended abdomen, ileus. Evaluated by surgery with barium enema recommended . Denies chest pain, palpitations. Creatinine 1.35. 05/31/2018 , Short of breath at rest. Left arm negative for DVT, bilateral lower extremities negative for DVT, with some subcutaneous edema in the popliteal regions. Barium enema reported. No abdominal narrowing, severely distended colon, marketed air distention with no evidence of obstruction or volvulus, severe colonic ileus. Passing minimal flatus, two small bowel movements. Abdominal x-ray reporting extensive large bowel gas consistent with generalized ileus, no free air, no change. Surgery recommending colonoscopy for decompression, tomorrow. A. fib with paroximal rapid ventricular rate .Continues on Cardizem drip. Diuresing on Lasix IV. Creatinine improving, 1.25. Potassium 3.4, receiving supplementation. Coumadin held, INR 3.2. Objective - Vital Signs Vital signs: Vital Signs Temp 98.1 F 05/31/18 16:00 Pulse 100 05/31/18 16:00 Resp 16 05/31/18 16:00 BP 113/68 05/31/18 16:00 Pulse Ox 100 05/31/18 16:00 Intake & Output 05/31/18 05/31/18 06/01/18 06:59 18:59 06:59 Intake Total 20 420 Output Total 750 900 Balance -730 -480 Weight 115.5 kg Intake: IV 20 0.9 20 Oral 420 Output: Urine 750 500 Stool 400 Other: Voiding Method Indwelling Catheter Indwelling Catheter # Voids 0 - Exam PHYSICAL EXAM: VITAL SIGNS: As above GENERAL: Sitting up in bed, no acute distress, respiratory effort mildly increased HEENT: Conjunctivae normal. eyes normal. NECK: No JVD. No thyroid enlargement. No LNs CARDIOVASCULAR: S1, S2 muffled. Irregular, No murmur RESPIRATION: Breath sounds diminished in the bases. No rhonchi or crackles. ABDOMEN: Firm, distended, nontender. Hypoactive bowel sounds No guarding. no masses palpable. EXTREMITIES: Left upper and bilateral lower extremity edema PSYCHIATRY: Alert and oriented -3, mood and affect normal. NERVOUS SYSTEM: Cranial N 2-12 grossly normal. Moves all 4 limbs. Diffuse weakness No focal deficits. - Labs CBC & Chem 7: 06/01/18 06:31 06/01/18 06:31 Labs: Abnormal Lab Results - Last 24 Hours (Table) 05/31/18 05/31/18 05/31/18 Range/Units 06:19 06:19 06:19 WBC 10.9 H (3.8-10.6) k/uL MCV 101.0 H (80.0-100.0) fL Neutrophils # 9.1 H (1.3-7.7) k/uL Lymphocytes # 0.7 L (1.0-4.8) k/uL PT 30.8 H (9.0-12.0) sec INR 3.2 H (<1.2) Potassium 3.4 L (3.5-5.1) mmol/L Carbon Dioxide 20 L (22-30) mmol/L BUN 31 H (9-20) mg/dL Glucose 104 H (74-99) mg/dL Assessment and Plan Assessment: -. Acute on Chronic CHF, systolic dysfunction -Chest pain, ruling out acute non-STEMI with troponin 0.064 -Abdominal distention with colonic ileus -Chronic persistent atrial fibrillation -.Acute on chronic renal failure, stage III -History of paralytic ileus -Coumadin monitoring -Recent stroke with residual left-sided weakness -CAD, history of CABG -Hyperlipidemia - hypertension Plan: Continue on current medication regime ,monitoring and symptomatic treatment. Decompression colonoscopy tomorrow. Maintain nebulized bronchodilators .Antiarrhythmics, anticoagulation as per cardiology. Close monitoring of renal function, electrolyte with repeat labs ordered for a.m. Further recommendations to follow. The impression and plan of care has been dictated as directed. : I performed a history and examination of this patient, discussed the same with the dictator. I agree with the dictator's note ,documented as a scribe. Any additional findings or plans will be noted.
--- NOTE | 2018-06-01 20:37 | P.PN ---
Subjective Progress Note Date: 06/01/18 Progress note being dictated for Dr. Leiva. Interval history: Is as an 83-year-old gentleman admitted with acute CHF exacerbation, chest pain, possible acute non-STEMI, abdominal distention with colonic ileus, acute on chronic renal failure and multiple other medical issues. Telemetry reporting atrial fibrillation, rate better controlled. Maintained on Cardizem drip. INR 3.3. Diuresing well on Lasix IV push with 24- hour I&O reflecting a negative fluid balance. Significant edema of left upper and bilateral lower extremities, Dopplers ordered.Echo suboptimal, reporting moderately severe impaired LV function, EF between 30 and 35% lateral and apical hypokinesis, mild to moderate mitral regurgitation aortic root borderline dilated up to 3.8 cm. , significantly distended abdomen, ileus. Evaluated by surgery with barium enema recommended . Denies chest pain, palpitations. Creatinine 1.35. 05/31/2018 , Short of breath at rest. Left arm negative for DVT, bilateral lower extremities negative for DVT, with some subcutaneous edema in the popliteal regions. Barium enema reported. No abdominal narrowing, severely distended colon, marketed air distention with no evidence of obstruction or volvulus, severe colonic ileus. Passing minimal flatus, two small bowel movements. Abdominal x-ray reporting extensive large bowel gas consistent with generalized ileus, no free air, no change. Surgery recommending colonoscopy for decompression, tomorrow. A. fib with paroximal rapid ventricular rate .Continues on Cardizem drip. Diuresing on Lasix IV. Creatinine improving, 1.25. Potassium 3.4, receiving supplementation. Coumadin held, INR 3.2. 06/01/2018. Maintained on Cardizem drip, atrial fibrillation, controlled currently. Potassium 3.2, receiving supplementation. INR 2.9, scheduled for decompression colonoscopy today as recommended by surgery.NPO. Creatinine 1.28. Denies chest pain, palpitations. Objective - Vital Signs Vital signs: Vital Signs Temp 96.7 F L 06/01/18 10:00 Pulse 80 06/01/18 16:00 Resp 16 06/01/18 16:00 BP 119/81 06/01/18 16:00 Pulse Ox 95 06/01/18 16:00 Intake & Output 06/01/18 06/01/18 06/02/18 06:59 18:59 06:59 Intake Total 50 510 Output Total 2250 900 Balance -2200 -390 Weight 116 kg Intake: IV 140 Diltiazem 50 mg In Sodium 40 Chloride 0.9% 40 ml @ 5 MG/HR 5 mls/hr IV .Q10H [facility] Rx#:[id number] Intake, IV Titration 50 250 Amount Diltiazem 50 mg In Sodium 50 50 Chloride 0.9% 40 ml @ 5 MG/HR 5 mls/hr IV .Q10H [facility] Rx#:[id number] Potassium Chloride 10 meq 200 In Water For Injection 1 100ml.bag @ 100 mls/hr IVPB Q1H [facility] Rx#: [id number] Oral 120 Output: Urine 1250 900 Stool 1000 Other: Voiding Method Indwelling Catheter Indwelling Catheter # Voids 0 - Exam PHYSICAL EXAM: VITAL SIGNS: As above GENERAL: Sitting up in bed, no acute distress, HEENT: Conjunctivae normal. eyes normal. NECK: No JVD. No thyroid enlargement. No LNs CARDIOVASCULAR: S1, S2 muffled. Irregular, No murmur RESPIRATION: Breath sounds diminished in the bases. No rhonchi or crackles. No wheezing ABDOMEN: Firm, distended, mild diffuse achiness .Hypoactive bowel sounds No guarding. no masses palpable. EXTREMITIES: Left upper and bilateral lower extremity edema PSYCHIATRY: Alert and oriented -3, mood and affect normal. NERVOUS SYSTEM: Cranial N 2-12 grossly normal. Moves all 4 limbs. Diffuse weakness No focal deficits. - Labs CBC & Chem 7: 06/01/18 06:31 06/01/18 06:31 Labs: Abnormal Lab Results - Last 24 Hours (Table) 06/01/18 06/01/18 06/01/18 Range/Units 06:31 06:31 06:31 RBC 4.28 L (4.30-5.90) m/uL Neutrophils # 7.8 H (1.3-7.7) k/uL PT 27.7 H (9.0-12.0) sec INR 2.9 H (<1.2) Potassium 3.2 L (3.5-5.1) mmol/L BUN 31 H (9-20) mg/dL Creatinine 1.28 H (0.66-1.25) mg/dL Glucose 100 H (74-99) mg/dL Assessment and Plan Assessment: -. Acute on Chronic CHF, systolic dysfunction -Chest pain, ruling out acute non-STEMI with troponin 0.064 -Abdominal distention with colonic ileus -Chronic persistent atrial fibrillation -.Acute on chronic renal failure, stage III -History of paralytic ileus -Coumadin monitoring -Recent stroke with residual left-sided weakness -CAD, history of CABG -Hyperlipidemia - hypertension -. Hypokalemia Plan: Continue on current medication regime ,monitoring and symptomatic treatment. Decompression colonoscopy today. Close monitoring of renal function , electrolyte with repeat labs ordered for a.m. prognosis guarded given multiple complex medical issues. Further recommendations to follow. The impression and plan of care has been dictated as directed. : I performed a history and examination of this patient, discussed the same with the dictator. I agree with the dictator's note ,documented as a scribe. Any additional findings or plans will be noted.
[2018-06-02] MEDS: DILTIAZEM 50 MG in SODIUM CHLORIDE 0.9% 40 ML IV SCH ×3 (06:40→21:01)
[2018-06-02] MEDS: METOPROLOL TARTRATE 50 MG TAB PO SCH ×2 (06:41→18:12)
[2018-06-02] MEDS: IPRATROPIUM-ALBUTEROL 3 ML NEB INHALATION SCH ×3 (07:11→20:33)
[2018-06-02 07:40] LABS: Basophils % (A) 0 %; Eosinophils # (A) 0.2 k/uL (0-0.7); Eosinophils % (A) 2 %; HCT 40.1 % (39.0-53.0); HGB 13.2 gm/dL (13.0-17.5); INR 2.4 (<1.2); Lymphocytes # (A) 0.9 k/uL (1.0-4.8); Lymphocytes % (A) 10 %; MCH 32.4 pg (25.0-35.0); MCHC 32.9 g/dL (31.0-37.0); MCV 98.5 fL (80.0-100.0); Mean Platelet Volume 6.9; Monocytes # (A) 0.7 k/uL (0-1.0); Monocytes % (A) 7 %; Neutrophils # (A) 7.4 k/uL (1.3-7.7); Neutrophils % (A) 79 %; Platelet Count 153 k/uL (150-450); RBC 4.07 m/uL (4.30-5.90); RDW 14.1 % (11.5-15.5); WBC 9.5 k/uL (3.8-10.6)
[2018-06-02 07:41] LABS: Prothrombin Time 23.1 sec (9.0-12.0)
[2018-06-02 08:00] LABS: Calcium 8.5 mg/dL (8.4-10.2); Potassium 2.9 mmol/L (3.5-5.1)
[2018-06-02] MEDS: POTASSIUM CHLORIDE ER 20 MEQ TAB.ER PO SCH ×6 (08:51→17:23)
[2018-06-02] MEDS: PRAVASTATIN SODIUM 40 MG TAB PO SCH (08:51)
[2018-06-02] MEDS: ASPIRIN 81 MG PO SCH (08:51)
[2018-06-02] MEDS: SPIRONOLACTONE 25 MG TAB PO SCH (08:51)
[2018-06-02] MEDS: FUROSEMIDE 10 MG/ML 4 ML VIAL IV SCH ×2 (08:51→21:02)
[2018-06-02] MEDS: VIT A,C & E-LUTEIN-MINERALS 1 EACH TAB PO SCH (08:52)
[2018-06-02] MEDS: LATANOPROST 0.005% OPHTH DROPS 2.5 ML BTL BOTH EYES SCH (08:52)
[2018-06-02] MEDS: MAGNESIUM SULFATE-D5W PMX 1 GM in DEXTROSE/WATER 1 100ML.BAG IVPB SCH ×2 (11:08→12:57)
[2018-06-02] MEDS ORDERED: SPIRONOLACTONE 25 MG TAB PO STA (11:39)
[2018-06-02] MEDS: MULTIVITAMINS, THERA 1 EACH TAB PO SCH (12:56)
[2018-06-02] MEDS: LOSARTAN 25 MG TAB PO SCH (12:56)
--- NOTE | 2018-06-02 12:58 | P.PN ---
<Zeinab Petty Fawn - Last Filed: 06/02/18 14:46> Subjective Progress Note Date: 06/02/18 CHIEF COMPLAINT: Abdominal distention HISTORY OF PRESENT ILLNESS: 83-year-old male who came to the ER with a chief complaint of abdominal distention. Patient underwent colonoscopy with decompression of transverse colon distention yesterday. Patient is sitting up in the chair. Tolerating oral diet. Denies nausea or vomiting. Denies abdominal pain. Reports passing flatus. Indwelling urinary catheter remains. Urology has been consulted. PHYSICAL EXAM: VITAL SIGNS: Reviewed GENERAL: Well-developed pleasant male in no acute distress sitting up in the chair. HEENT: No scleral icterus. Extraocular movements grossly intact. Moist buccal mucosa. NECK: Supple without lymphadenopathy. CHEST: Unlabored respirations. Equal bilateral excursions. CARDIOVASCULAR: Irregular rate irregular rhythm. Distal 2+ pulses. ABDOMEN: Soft, nondistended. No peritonitis. Nontender. MUSCULOSKELETAL: No clubbing, cyanosis. NEURO : No focal or lateralizing signs. Cranial nerves II-12 within normal limits. PSYCH: Alert and oriented to person, place and time. SKIN: Well perfused. Good skin turgor. ASSESSMENT: 1. Transverse colon distention with the [place]'s syndrome, s/p colonoscopy with decompression 2. Atrial fibrillation with RVR 3. Morbid obesity due to excess calories, BMI 35.7 4. History of generalized ileus 5. Ischemic cardiomyopathy 6. Urinary retention PLAN: Continue heart healthy diet. Activity as tolerated. Urology on consult due to indwelling catheter. Patient is stable from a surgical standpoint. We will sign off. Please re-consult if needed. Patient does not require follow up appointment with Dr. Campos Nurse practitioner note has been reviewed by physician. Signing provider agrees with the documented findings, assessment, and plan of care. Objective - Vital Signs Vital signs: Vital Signs Temp 96.2 F L 06/02/18 08:00 Pulse 91 06/02/18 08:00 Resp 18 06/02/18 04:00 BP 88/52 06/02/18 08:00 Pulse Ox 96 06/02/18 08:00 Intake & Output 06/01/18 06/02/18 06/02/18 18:59 06:59 18:59 Intake Total 510 50 Output Total 900 3450 Balance -390 -3400 Weight 114.5 kg Intake: IV 140 Diltiazem 50 mg In Sodium 40 Chloride 0.9% 40 ml @ 5 MG/HR 5 mls/hr IV .Q10H [facility] Rx#:[id number] Intake, IV Titration 250 50 Amount Diltiazem 50 mg In Sodium 50 50 Chloride 0.9% 40 ml @ 5 MG/HR 5 mls/hr IV .Q10H [facility] Rx#:[id number] Potassium Chloride 10 meq 200 In Water For Injection 1 100ml.bag @ 100 mls/hr IVPB Q1H MI[facility] Rx#: [id number] Oral 120 Output: Urine 900 2650 Stool 800 Other: Voiding Method Indwelling Catheter Indwelling Catheter Indwelling Catheter # Voids 0 # Bowel Movements 1 - Labs CBC & Chem 7: 06/02/18 07:02 06/02/18 13:48 Labs: Abnormal Lab Results - Last 24 Hours (Table) 06/02/18 06/02/18 06/02/18 Range/Units 07:02 07:02 07:02 RBC 4.07 L (4.30-5.90) m/uL Lymphocytes # 0.9 L (1.0-4.8) k/uL PT 23.1 H (9.0-12.0) sec INR 2.4 H (<1.2) Potassium 2.9 L (3.5-5.1) mmol/L BUN 27 H (9-20) mg/dL Assessment and Plan (1) Urinary retention Current Visit: Yes Status: Acute Code(s): R33.9 - RETENTION OF URINE, UNSPECIFIED SNOMED Code(s): 225443206 (2) Abdominal distention Current Visit: Yes Status: Acute Code(s): R14.0 - ABDOMINAL DISTENSION ( GASEOUS) SNOMED Code(s): 75872454 (3) Atrial fibrillation with RVR Current Visit: Yes Status: Acute Code(s): I48.91 - UNSPECIFIED ATRIAL FIBRILLATION SNOMED Code(s): 530447452159741 (4) CAD (coronary artery disease) Current Visit: Yes Status: Acute Code(s): I25.10 - ATHSCL HEART DISEASE OF [place] CORONARY ARTERY W/O ANG PCTRS SNOMED Code(s): 77483951 (5) Ileus Current Visit: Yes Status: Acute Code(s): K56.7 - ILEUS, UNSPECIFIED SNOMED Code(s): 083731197 (6) [place]'s syndrome Current Visit: Yes Status: Acute Code(s): K59.8 - OTHER SPECIFIED FUNCTIONAL INTESTINAL DISORDERS SNOMED Code(s): 87733638 (7) Colon distention Current Visit: Yes Status: Acute Code(s): K63.89 - OTHER SPECIFIED DISEASES OF INTESTINE SNOMED Code(s): 924851455 <BethPayton N - Last Filed: 06/03/18 10:01> Objective - Vital Signs Vital signs: Vital Signs Temp 98.1 F 06/03/18 04:00 Pulse 88 06/03/18 09:26 Resp 20 06/03/18 08:00 BP 107/55 06/03/18 08:00 Pulse Ox 98 06/03/18 08:00 Intake & Output 06/02/18 06/03/18 06/03/18 18:59 06:59 18:59 Intake Total 955.833 85.917 Output Total 950 Balance 955.833 -864.083 Weight 117.2 kg Intake: IV 90 15 0.9 50 10 Diltiazem 50 mg In Sodium 40 5 Chloride 0.9% 40 ml @ 5 MG/HR 5 mls/hr IV .Q10H [facility] Rx#:[id number] Intake, IV Titration 145.833 70.917 Amount Diltiazem 50 mg In Sodium 45.833 70.917 Chloride 0.9% 40 ml @ 5 MG/HR 5 mls/hr IV .Q10H [facility] Rx#:[id number] Magnesium Sulfate-D5w Pmx 100 1 gm In Dextrose/Water 1 100ml.bag @ 100 mls/hr IVPB Q1H [facility] Rx#: [id number] Oral 720 Output: Urine 950 Uretheral ([place]) 350 Other: Voiding Method Indwelling Catheter Indwelling Catheter - Labs CBC & Chem 7: 06/03/18 05:48 06/03/18 05:48 Labs: Abnormal Lab Results - Last 24 Hours (Table) 06/02/18 06/03/18 06/03/18 Range/Units 13:48 05:48 05:48 RBC 4.05 L (4.30-5.90) m/uL Hgb 12.8 L (13.0-17.5) gm/dL PT (9.0-12.0) sec INR (<1.2) Potassium 3.3 L (3.5-5.1) mmol/L Chloride 108 H (98-107) mmol/L BUN 32 H (9-20) mg/dL Creatinine 1.36 H (0.66-1.25) mg/dL 06/03/18 Range/Units 05:48 RBC (4.30-5.90) m/uL Hgb (13.0-17.5) gm/dL PT 17.2 H (9.0-12.0) sec INR 1.7 H (<1.2) Potassium (3.5-5.1) mmol/L Chloride (98-107) mmol/L BUN (9-20) mg/dL Creatinine (0.66-1.25) mg/dL Assessment and Plan (1) Ileus Current Visit: Yes Status: Acute Code(s): K56.7 - ILEUS, UNSPECIFIED SNOMED Code(s): 084869239 (2) Abdominal distention Current Visit: Yes Status: Acute Code(s): R14.0 - ABDOMINAL DISTENSION ( GASEOUS) SNOMED Code(s): 00467236 (3) CAD (coronary artery disease) Current Visit: Yes Status: Acute Code(s): I25.10 - ATHSCL HEART DISEASE OF [place] CORONARY ARTERY W/O ANG PCTRS SNOMED Code(s): 21848482 (4) Atrial fibrillation with RVR Current Visit: Yes Status: Acute Code(s): I48.91 - UNSPECIFIED ATRIAL FIBRILLATION SNOMED Code(s): 716035107207242 (5) Congestive heart failure Current Visit: Yes Status: Acute Code(s): I50.9 - HEART FAILURE, UNSPECIFIED SNOMED Code(s): 51584422 (6) Hypokalemia due to inadequate potassium intake Current Visit: Yes Status: Acute Code(s): E87.6 - HYPOKALEMIA SNOMED Code( s): 19565109 Plan: Recommend correction of hypokalemia as may precipitate recurrence of ileus/ [place] syndrome.
--- NOTE | 2018-06-02 15:20 | P.GSCN ---
History of Present Illness Consult date: 06/02/18 History of present illness: The patient is a pleasant 83-year-old gentleman well known to me for prostate cancer. He has had this cancer for several years and is chose active surveillance because of chronic back and cardiac issues. Easily was seen for his biannual appointment. His PSA has been stable in the 20 range. He does have enlarged prostate with incomplete bladder emptying. The patient has been having progression of his heart failure. He came in the hospital for multiple reasons including an ileus ration of his congestive failure. He is found to have incomplete bladder emptying with a residual greater than 350 mL for this reason we are asked see the patient. The patient is interviewed at the bedside. He is awake alert and oriented. New urologic issues. He does have scrotal swelling that he has marked lower extremity edema up into his thighs abdominal wall edema and hand edema. The patient has been evaluated and treated by Dr. Carlisle for his bowel problems. Review of Systems - Constitutional Reports chronic pain - Cardiovascular Reports decreased exercise tolerance, Reports dyspnea on exertion - Gastrointestinal Reports as per HPI - Genitourinary Reports as per HPI Past Medical History Past Medical History: Coronary Artery Disease (CAD), Cancer, Chest Pain / Angina , Heart Failure, CVA/TIA, Eye Disorder, Hyperlipidemia, Hypertension, Myocardial Infarction ([place]), Osteoarthritis (OA) Additional Past Medical History / Comment(s): several TIA, OH's-at least 5, prostate cancer being monitored-recent PSA was significantly, stoke 12/2015- left side -gait "is off" diff with balance and moving leg, left arm diff with fine motor skills and numberness left arm. can not walk far distance, change in bowel patterns Last Myocardial Infarction Date:: 2001 History of Any Multi-Drug Resistant Organisms: None Reported Past Surgical History: Appendectomy, Back Surgery, Coronary Bypass/CABG, Heart Catheterization With Stent Additional Past Surgical History / Comment(s): 10 PLUS STENTS, 1988 CABG with 3 vessel bypass, hemorrhoidectomy, multiple back surgeries, back epidural injections, L eye laser sx due to "something burst in that eye", rt carotid endarterectomy Past Anesthesia/Blood Transfusion Reactions: No Reported Reaction Date of Last Stent Placement:: 2008 Past Psychological History: Anxiety, Depression Additional Psychological History / Comment(s): . 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 1 ppd. Past Drug Use History: None Reported - Past Family History Father Family Medical History: Myocardial Infarction ([place]) Additional Family Medical History / Comment(s): Father of a [place] in his 40' s. Pt's grandfather on his dad's side in his 40's of a [place] Mother Family Medical History: Coronary Artery Disease (CAD) Additional Family Medical History / Comment(s): Mother lived into her 90's. Sister(s) Family Medical History: Cancer Medications and Allergies Home Medications Medication Instructions Recorded Confirmed Type Aspirin EC [Ecotrin Low Dose] 81 mg PO DAILY 01/15/16 05/28/18 History Furosemide [Lasix] 40 mg PO DAILY 01/15/16 05/28/18 History Pravastatin Sodium [Pravachol] 40 mg PO DAILY 01/15/16 05/28/18 History Meclizine [Antivert] 25 mg PO TID PRN #0 tab 01/16/16 05/28/18 Rx Metoprolol Tartrate [Lopressor] 50 mg PO DAILY 02/08/17 05/28/18 History Nitroglycerin Sl Tabs [Nitrostat] 0.4 mg SUBLINGUAL Q5M PRN 02/08/17 05/28/18 History Spironolactone [Aldactone] 25 mg PO DAILY 02/08/17 05/28/18 History Isosorbide Mononitrate ER [Imdur] 60 mg PO DAILY 05/28/18 05/28/18 History Losartan [Cozaar] 25 mg PO DAILY 05/28/18 05/28/18 History Multivitamins, Thera [Multivitamin 1 tab PO DAILY 05/28/18 05/28/18 History (formulary)] Potassium Chloride ER [K-Dur 20] 20 meq PO DAILY 05/28/18 05/28/18 History Travoprost [Travatan Z 0.004%] 1 drop BOTH EYES DAILY 05/28/18 05/28/18 History Vit C/E/Zn/Coppr/Lutein/Zeaxan 1 cap PO DAILY 05/28/18 05/28/18 History [Preservision Areds 2 Softgel] Warfarin [Coumadin] 7.5 mg PO DAILY 05/28/18 05/28/18 History Allergies Allergy/AdvReac Type Severity Reaction Status Date / Time morphine Allergy Anaphylaxis Verified 05/28/18 16:36 Sulfa (Sulfonamide Allergy Anaphylaxis Verified 05/28/18 16:36 Antibiotics) Surgical - Exam Vital Signs Temp Pulse Resp BP Pulse Ox 98.0 F 82 20 150/80 99 05/28/18 16:07 05/28/18 16:07 05/28/18 16:07 05/28/18 16:07 05/28/18 16:07 - General well developed, well nourished, no distress - Eyes PERRL - ENT no hearing loss - Neck trachea midline - Respiratory normal expansion, normal respiratory effort - Cardiovascular Rhythm: irregularly irregular - Abdomen Abdomen: soft, non tender, distended - Genitourinary Andrew penile and scrotal edema. Indwelling catheter - Integumentary Marked lower extremity edema - Neurologic normal coordination, normal sensation - Musculoskeletal normal posture - Psychiatric oriented to person, oriented to place, speech is normal, memory intact Results - Labs 06/02/18 07:02 06/02/18 13:48 Abnormal Lab Results - Last 24 Hours (Table) 06/02/18 06/02/18 06/02/18 Range/Units 07:02 07:02 07:02 RBC 4.07 L (4.30-5.90) m/uL Lymphocytes # 0.9 L (1.0-4.8) k/uL PT 23.1 H (9.0-12.0) sec INR 2.4 H (<1.2) Potassium 2.9 L (3.5-5.1) mmol/L BUN 27 H (9-20) mg/dL 06/02/18 Range/Units 13:48 RBC (4.30-5.90) m/uL Lymphocytes # (1.0-4.8) k/uL PT (9.0-12.0) sec INR (<1.2) Potassium 3.3 L (3.5-5.1) mmol/L BUN (9-20) mg/dL Diabetes panel 06/02/18 06/02/18 Range/Units 07:02 13:48 Sodium 138 (137-145) mmol/L Potassium 2.9 L 3.3 L (3.5-5.1) mmol/L Chloride 107 (98-107) mmol/L Carbon Dioxide 24 (22-30) mmol/L BUN 27 H (9-20) mg/dL Creatinine 1.17 (0.66-1.25) mg/dL Glucose 86 (74-99) mg/dL Calcium 8.5 (8.4-10.2) mg/dL Calcium panel 06/02/18 Range/Units 07:02 Calcium 8.5 (8.4-10.2) mg/dL Pituitary panel 06/02/18 06/02/18 Range/Units 07:02 13:48 Sodium 138 (137-145) mmol/L Potassium 2.9 L 3.3 L (3.5-5.1) mmol/L Chloride 107 (98-107) mmol/L Carbon Dioxide 24 (22-30) mmol/L BUN 27 H (9-20) mg/dL Creatinine 1.17 (0.66-1.25) mg/dL Glucose 86 (74-99) mg/dL Calcium 8.5 (8.4-10.2) mg/dL Adrenal panel 06/02/18 06/02/18 Range/Units 07:02 13:48 Sodium 138 (137-145) mmol/L Potassium 2.9 L 3.3 L (3.5-5.1) mmol/L Chloride 107 (98-107) mmol/L Carbon Dioxide 24 (22-30) mmol/L BUN 27 H (9-20) mg/dL Creatinine 1.17 (0.66-1.25) mg/dL Glucose 86 (74-99) mg/dL Calcium 8.5 (8.4-10.2) mg/dL
--- NOTE | 2018-06-02 15:22 | P.CON ---
Consult Note - . Assessment/Plan:: Impression: Prostate cancer, active surveillance, stable. Scrotal edema secondary to overall edema secondary to congestive heart failure. Incomplete bladder emptying acute and chronic. Multiple medical issues. Recommendations: I would leave indwelling catheter until the patient's edema has been better controlled. To have him void to a swollen scrotum with his immobility would be very difficult as well as very poor hygiene. I believe it catheter indwelling at which time when he is ambulatory and feeling better we will remove it. Please feel free to contact me when you feel this is the case.
--- NOTE | 2018-06-02 15:43 | P.PN ---
Subjective Progress Note Date: 06/02/18 This is an 83-year-old gentleman who presented to the hospital with symptoms of 3 day duration of shortness of breath, significant edema, mild abdominal discomfort. He has a known history of coronary artery disease and prior bypass surgery as well as stent placement, history of right carotid endarterectomy, hyperlipidemia, hypertension chronic persistent atrial fibrillation. Patient has been receiving diuretics for congestive cardiac failure, echocardiogram with Doppler study has been requested which is still pending. Blood pressure this morning 120/80, heart rate 90, 97% on 2 L of oxygen. Patient states he is barely moving his bowels, it is only like water, he had a KUB performed which showed a dilated large bowel consistent with generalized ileus and a surgical consultation has been requested. At the time of my examination this morning, patient states he just feels awful, he is uncomfortable in his abdomen, continues to have significant peripheral edema. He needs to be on Lasix 40 mg every 12 hourly. His INR today is 3.3. Sodium 138, potassium 4.3, BUN 31, creatinine 1.3. 06/01/2018 Patient was seen and examined this morning, continues to be on a Cardizem drip at 5 mg per hour. We will continue this for the next couple of days. Patient is scheduled today to undergo colonoscopy by Dr. Carlisle. He is sitting up in the chair today, and does state that he feels better overall. Continues to have significantly firm abdomen. Blood pressure 128/80 with a heart rate in the 80s, 96% on 2 L of oxygen. White blood cell count 10.1, hemoglobin 13.6, platelet count 198. INR 2.9. Sodium 140, potassium 3.2, BUN 31, creatinine 1.2. Magnesium 1.9. 06/02/2018 Patient was seen and examined this morning, he underwent a colonoscopy with decompression of transverse colon distention yesterday today he is noted to be sitting up in the chair tolerating a diet. Overall feeling better, abdomen much less firm today, he is passing flatus. Blood pressure 104/70 with a heart rate in the 80s. White blood cell count 9.5, hemoglobin 13.2, platelet count 153. INR 2.4, potassium 3.3 today which is being replaced. BUN 27 and creatinine 1.7. Objective - Vital Signs Vital signs: Vital Signs Temp 96.3 F L 01/03/19 12:00 Pulse 83 06/02/18 12:00 Resp 20 06/02/18 12:00 BP 104/76 06/02/18 12:00 Pulse Ox 96 06/02/18 12:00 Intake & Output 06/01/18 06/02/18 06/02/18 18:59 06:59 18:59 Intake Total 510 50 670 Output Total 900 3450 Balance -390 -3400 670 Weight 114.5 kg Intake: IV 140 90 0.9 50 Diltiazem 50 mg In Sodium 40 40 Chloride 0.9% 40 ml @ 5 MG/HR 5 mls/hr IV .Q10H [facility] Rx#:[id number] Intake, IV Titration 250 50 100 Amount Diltiazem 50 mg In Sodium 50 50 Chloride 0.9% 40 ml @ 5 MG/HR 5 mls/hr IV .Q10H [facility] Rx#:[id number] Magnesium Sulfate-D5w Pmx 100 1 gm In Dextrose/Water 1 100ml.bag @ 100 mls/hr IVPB Q1H [facility] Rx#: [id number] Potassium Chloride 10 meq 200 In Water For Injection 1 100ml.bag @ 100 mls/hr IVPB Q1H [facility] Rx#: [id number] Oral 120 480 Output: Urine 900 2650 Stool 800 Other: Voiding Method Indwelling Catheter Indwelling Catheter Indwelling Catheter # Voids 0 # Bowel Movements 1 - Exam PHYSICAL EXAMINATION: GENERAL: 43-year-old gentleman in no acute distress at the time of my examination HEENT: Head is atraumatic, normocephalic. Pupils equal, round. Sclera anicteric. Conjunctiva are clear. Mucous membranes of the mouth are moist. Neck is supple. There is elevated jugular venous pressure. No carotid bruit is heard. HEART EXAMINATION: Heart S1, S2 normal. No murmur or gallop heard. CHEST EXAMINATION: Lungs reveal diminished air entry to bilateral bases. ABDOMEN: Much less firm , mildly distended, positive bowel sounds . EXTREMITIES: 2+ peripheral pulses with no evidence of peripheral edema and no calf tenderness noted. NEUROLOGIC patient is awake, alert and oriented X3. . - Labs CBC & Chem 7: 06/02/18 07:02 06/02/18 13:48 Labs: Abnormal Lab Results - Last 24 Hours (Table) 01/08/1606/02/18 06/02/18 Range/Units 07:02 07:02 07:02 RBC 4.07 L (4.30-5.90) m/uL Lymphocytes # 0.9 L (1.0-4.8) k/uL PT 23.1 H (9.0-12.0) sec INR 2.4 H (<1.2) Potassium 2.9 L (3.5-5.1) mmol/L BUN 27 H (9-20) mg/dL 06/02/18 Range/Units 13:48 RBC (4.30-5.90) m/uL Lymphocytes # (1.0-4.8) k/uL PT (9.0-12.0) sec INR (<1.2) Potassium 3.3 L (3.5-5.1) mmol/L BUN (9-20) mg/dL Assessment and Plan Plan: Assessment and plan #1 congestive heart failure, LV function unknown, echo remains pending. #2 chronic persistent atrial fibrillation, rate under better control today., Anticoagulated. INR 3.3. #3 known history of coronary artery disease with prior bypass surgery and stent placements #4 abdominal pain and distention with evidence of possible ileus #5 hypertension #6 hyperlipidemia Plan We will continue the patient on current dose of IV Lasix. Continue IV Cardizem at 5 mg per hour for next day or so . DNP note has been reviewed, I agree with a documented findings and plan of care. Patient was seen and examined.
[2018-06-02] MEDS: WARFARIN 7.5 MG TAB PO SCH (18:12)
[2018-06-03] MEDS: DILTIAZEM 50 MG in SODIUM CHLORIDE 0.9% 40 ML IV SCH (06:01)
[2018-06-03] MEDS: METOPROLOL TARTRATE 50 MG TAB PO SCH ×2 (06:04→16:07)
[2018-06-03 06:21] LABS: Basophils % (A) 0 %; Eosinophils # (A) 0.3 k/uL (0-0.7); Eosinophils % (A) 3 %; HCT 39.6 % (39.0-53.0); HGB 12.8 gm/dL (13.0-17.5); Lymphocytes # (A) 1.1 k/uL (1.0-4.8); Lymphocytes % (A) 14 %; MCH 31.6 pg (25.0-35.0); MCHC 32.3 g/dL (31.0-37.0); MCV 97.7 fL (80.0-100.0); Mean Platelet Volume 7.3; Monocytes # (A) 0.6 k/uL (0-1.0); Monocytes % (A) 8 %; Neutrophils # (A) 5.3 k/uL (1.3-7.7); Neutrophils % (A) 71 %; Platelet Count 161 k/uL (150-450); RBC 4.05 m/uL (4.30-5.90); RDW 14.4 % (11.5-15.5); WBC 7.6 k/uL (3.8-10.6)
[2018-06-03 06:26] LABS: INR 1.7 (<1.2); Prothrombin Time 17.2 sec (9.0-12.0)
[2018-06-03 06:33] LABS: Calcium 8.6 mg/dL (8.4-10.2); Potassium 3.5 mmol/L (3.5-5.1)
[2018-06-03] MEDS: FUROSEMIDE 10 MG/ML 4 ML VIAL IV SCH ×2 (09:01→20:23)
[2018-06-03] MEDS: ASPIRIN 81 MG PO SCH (09:01)
[2018-06-03] MEDS: SPIRONOLACTONE 25 MG TAB PO SCH (09:02)
[2018-06-03] MEDS: POTASSIUM CHLORIDE ER 20 MEQ TAB.ER PO SCH ×3 (09:02→12:17)
[2018-06-03] MEDS: PRAVASTATIN SODIUM 40 MG TAB PO SCH (09:02)
[2018-06-03] MEDS: MULTIVITAMINS, THERA 1 EACH TAB PO SCH (09:02)
[2018-06-03] MEDS: LATANOPROST 0.005% OPHTH DROPS 2.5 ML BTL BOTH EYES SCH (09:06)
[2018-06-03] MEDS: IPRATROPIUM-ALBUTEROL 3 ML NEB INHALATION SCH ×3 (09:14→20:23)
[2018-06-03] MEDS: VIT A,C & E-LUTEIN-MINERALS 1 EACH TAB PO SCH (12:17)
[2018-06-03] MEDS: LOSARTAN 25 MG TAB PO SCH (12:20)
[2018-06-03] MEDS: WARFARIN 7.5 MG TAB PO SCH (17:26)
--- NOTE | 2018-06-03 18:40 | P.PN ---
Progress Note - Text Progress Note Date: 06/03/18 The patient feels more distended today. He's had some burping. He denies any flatus. On exam his vital signs appear stable. His abdomen is soft and distended. It appears quite firm. There is no significant tenderness. Ileus. Patient remained on clear liquids. We will reevaluate him in the a.m.
--- NOTE | 2018-06-03 22:56 | P.PN ---
Subjective Progress Note Date: 06/02/18 Progress note being dictated for Dr. Leiva. Interval history: Is as an 83-year-old gentleman admitted with acute CHF exacerbation, chest pain, possible acute non-STEMI, abdominal distention with colonic ileus, acute on chronic renal failure and multiple other medical issues. Telemetry reporting atrial fibrillation, rate better controlled. Maintained on Cardizem drip. INR 3.3. Diuresing well on Lasix IV push with 24- hour I&O reflecting a negative fluid balance. Significant edema of left upper and bilateral lower extremities, Dopplers ordered.Echo suboptimal, reporting moderately severe impaired LV function, EF between 30 and 35% lateral and apical hypokinesis, mild to moderate mitral regurgitation aortic root borderline dilated up to 3.8 cm. , significantly distended abdomen, ileus. Evaluated by surgery with barium enema recommended . Denies chest pain, palpitations. Creatinine 1.35. 05/31/2018 , Short of breath at rest. Left arm negative for DVT, bilateral lower extremities negative for DVT, with some subcutaneous edema in the popliteal regions. Barium enema reported. No abdominal narrowing, severely distended colon, marketed air distention with no evidence of obstruction or volvulus, severe colonic ileus. Passing minimal flatus, two small bowel movements. Abdominal x-ray reporting extensive large bowel gas consistent with generalized ileus, no free air, no change. Surgery recommending colonoscopy for decompression, tomorrow. A. fib with paroximal rapid ventricular rate .Continues on Cardizem drip. Diuresing on Lasix IV. Creatinine improving, 1.25. Potassium 3.4, receiving supplementation. Coumadin held, INR 3.2. 06/01/2018. Maintained on Cardizem drip, atrial fibrillation, controlled currently. Potassium 3.2, receiving supplementation. INR 2.9, scheduled for decompression colonoscopy today as recommended by surgery.NPO. Creatinine 1.28. Denies chest pain, palpitations. 06/02/2018 underwent decompression colonoscopy yesterday, tolerated well. Sitting up in chair, abdomen mildly softer, still firm. Passing flatus. Tolerating oral diet with no nausea vomiting or diarrhea. Denies abdominal pain. Continues on Cardizem drip, IV Lasix.diuresing well with 24-hour I&O reflecting a negative fluid balance. Receiving potassium supplements with potassium up to 3.3. Inr 2.4. Objective - Vital Signs Vital signs: Vital Signs Temp 96.9 F L 06/02/18 15:55 Pulse 93 06/02/18 15:55 Resp 20 06/02/18 15:55 BP 124/75 06/02/18 15:55 Pulse Ox 100 06/02/18 15:55 Intake & Output 06/02/18 06/02/18 06/03/18 06:59 18:59 06:59 Intake Total 50 955.833 25.917 Output Total 3450 Balance -3400 955.833 25.917 Weight 114.5 kg Intake: IV 90 0.9 50 Diltiazem 50 mg In Sodium 40 Chloride 0.9% 40 ml @ 5 MG/HR 5 mls/hr IV .Q10H MIKAL Rx#:[id number] Intake, IV Titration 50 145.833 25.917 Amount Diltiazem 50 mg In Sodium 50 45.833 25.917 Chloride 0.9% 40 ml @ 5 MG/HR 5 mls/hr IV .Q10H MIKAL Rx#:[id number] Magnesium Sulfate-D5w Pmx 100 1 gm In Dextrose/Water 1 100ml.bag @ 100 mls/hr IVPB Q1H MIKAL Rx#: [id number] Oral 720 Output: Urine 2650 Stool 800 Other: Voiding Method Indwelling Catheter Indwelling Catheter # Voids 0 # Bowel Movements 1 - Exam PHYSICAL EXAM: VITAL SIGNS: As above GENERAL: Sitting up in chair, no acute distress, HEENT: Conjunctivae normal. eyes normal. NECK: No JVD. No thyroid enlargement. No LNs CARDIOVASCULAR: S1, S2 muffled. Irregular, No murmur RESPIRATION: Breath sounds diminished in the bases. No rhonchi or crackles or wheezing ABDOMEN: Firm, but mildly softer, distended, mild diffuse achiness .Hypoactive bowel sounds No guarding. no masses palpable. EXTREMITIES: Left upper and bilateral lower extremity edema PSYCHIATRY: Alert and oriented -3, mood and affect normal. NERVOUS SYSTEM: Cranial N 2-12 grossly normal. Moves all 4 limbs. Diffuse weakness No focal deficits. - Labs CBC & Chem 7: 06/03/18 05:48 06/03/18 16:39 Labs: Abnormal Lab Results - Last 24 Hours (Table) 06/02/18 06/02/18 06/02/18 Range/Units 07:02 07:02 07:02 RBC 4.07 L (4.30-5.90) m/uL Lymphocytes # 0.9 L (1.0-4.8) k/uL PT 23.1 H (9.0-12.0) sec INR 2.4 H (<1.2) Potassium 2.9 L (3.5-5.1) mmol/L BUN 27 H (9-20) mg/dL 06/02/18 Range/Units 13:48 RBC (4.30-5.90) m/uL Lymphocytes # (1.0-4.8) k/uL PT (9.0-12.0) sec INR (<1.2) Potassium 3.3 L (3.5-5.1) mmol/L BUN (9-20) mg/dL Assessment and Plan Assessment: -. Acute on Chronic CHF, systolic dysfunction -Chest pain, ruling out acute non-STEMI with troponin 0.064 -Abdominal distention with colonic ileus, status post decompression colonoscopy -Chronic persistent atrial fibrillation -.Acute on chronic renal failure, stage III -History of paralytic ileus -Coumadin monitoring -Recent stroke with residual left-sided weakness -CAD, history of CABG -Hyperlipidemia - hypertension -.Hypokalemia Plan: Continue on current medication regime ,monitoring and symptomatic treatment. Close monitoring of renal function, electrolyte with repeat labs ordered for a.m. urology consult in place secondary to Littlejhon catheter, recommendations pending . The impression and plan of care has been dictated as directed. : I performed a history and examination of this patient, discussed the same with the dictator. I agree with the dictator's note ,documented as a scribe. Any additional findings or plans will be noted.
--- NOTE | 2018-06-03 23:03 | P.PN ---
Subjective Progress Note Date: 06/03/18 Progress note being dictated for Dr. Leiva. Interval history: Is as an 83-year-old gentleman admitted with acute CHF exacerbation, chest pain, possible acute non-STEMI, abdominal distention with colonic ileus, acute on chronic renal failure and multiple other medical issues. Telemetry reporting atrial fibrillation, rate better controlled. Maintained on Cardizem drip. INR 3.3. Diuresing well on Lasix IV push with 24- hour I&O reflecting a negative fluid balance. Significant edema of left upper and bilateral lower extremities, Dopplers ordered.Echo suboptimal, reporting moderately severe impaired LV function, EF between 30 and 35% lateral and apical hypokinesis, mild to moderate mitral regurgitation aortic root borderline dilated up to 3.8 cm. , significantly distended abdomen, ileus. Evaluated by surgery with barium enema recommended . Denies chest pain, palpitations. Creatinine 1.35. 05/31/2018 , Short of breath at rest. Left arm negative for DVT, bilateral lower extremities negative for DVT, with some subcutaneous edema in the popliteal regions. Barium enema reported. No abdominal narrowing, severely distended colon, marketed air distention with no evidence of obstruction or volvulus, severe colonic ileus. Passing minimal flatus, two small bowel movements. Abdominal x-ray reporting extensive large bowel gas consistent with generalized ileus, no free air, no change. Surgery recommending colonoscopy for decompression, tomorrow. A. fib with paroximal rapid ventricular rate .Continues on Cardizem drip. Diuresing on Lasix IV. Creatinine improving, 1.25. Potassium 3.4, receiving supplementation. Coumadin held, INR 3.2. 06/01/2018. Maintained on Cardizem drip, atrial fibrillation, controlled currently. Potassium 3.2, receiving supplementation. INR 2.9, scheduled for decompression colonoscopy today as recommended by surgery.NPO. Creatinine 1.28. Denies chest pain, palpitations. 06/02/2018 underwent decompression colonoscopy yesterday, tolerated well. Sitting up in chair, abdomen mildly softer, still firm. Passing flatus. Tolerating oral diet with no nausea vomiting or diarrhea. Denies abdominal pain. Continues on Cardizem drip, IV Lasix.diuresing well with 24-hour I&O reflecting a negative fluid balance. Receiving potassium supplements with potassium up to 3.3. Inr 2.4. 06/03/2018 abdomen remains firm, distended. Denies abdominal pain. No flatus, no bowel movement. Diet backed down to clears. Minimal burping. Renal function worsening, creatinine 1.36. INR 1.7. Objective - Vital Signs Vital signs: Vital Signs Temp 97.5 F L 06/03/18 21:00 Pulse 86 06/03/18 21:00 Resp 18 06/03/18 21:00 BP 110/70 06/03/18 21:00 Pulse Ox 95 06/03/18 21:00 Intake & Output 06/03/18 06/03/18 06/04/18 06:59 18:59 06:59 Intake Total 85.917 600 Output Total 950 350 850 Balance -864.083 250 -850 Weight 117.2 kg Intake: IV 15 0.9 10 Diltiazem 50 mg In Sodium 5 Chloride 0.9% 40 ml @ 5 MG/HR 5 mls/hr IV .Q10H MIKAL Rx#:[id number] Intake, IV Titration 70.917 Amount Diltiazem 50 mg In Sodium 70.917 Chloride 0.9% 40 ml @ 5 MG/HR 5 mls/hr IV .Q10H MIKAL Rx#:[id number] Oral 600 Output: Urine 950 350 850 Uretheral (Littlejohn) 350 350 Other: Voiding Method Indwelling Catheter Indwelling Catheter # Voids 1 - Exam PHYSICAL EXAM: VITAL SIGNS: As above GENERAL: Sitting up in chair, no acute distress, HEENT: Conjunctivae normal. eyes normal. NECK: No JVD. No thyroid enlargement. No LNs CARDIOVASCULAR: S1, S2 muffled. Irregular, No murmur RESPIRATION: Breath sounds diminished in the bases. No rhonchi or crackles or wheezing ABDOMEN: Firm,more distended, nontender.Hypoactive bowel sounds No guarding. no masses palpable. EXTREMITIES: Left upper and bilateral lower extremity edema PSYCHIATRY: Alert and oriented -3, mood and affect normal. NERVOUS SYSTEM: Cranial N 2-12 grossly normal. Moves all 4 limbs. Diffuse weakness No focal deficits. - Labs CBC & Chem 7: 06/03/18 05:48 06/03/18 16:39 Labs: Abnormal Lab Results - Last 24 Hours (Table) 01/04/19 01/04/19 01/04/19 Range/Units 05:48 05:48 05:48 RBC 4.05 L (4.30-5.90) m/uL Hgb 12.8 L (13.0-17.5) gm/dL PT 17.2 H (9.0-12.0) sec INR 1.7 H (<1.2) Chloride 108 H (98-107) mmol/L BUN 32 H (9-20) mg/dL Creatinine 1.36 H (0.66-1.25) mg/dL Assessment and Plan Assessment: -. Acute on Chronic CHF, systolic dysfunction -Chest pain, ruling out acute non-STEMI with troponin 0.064 -Abdominal distention with colonic ileus, status post decompression colonoscopy -Chronic persistent atrial fibrillation -.Acute on chronic renal failure, stage III -History of paralytic ileus -Coumadin monitoring -Recent stroke with residual left-sided weakness -CAD, history of CABG -Hyperlipidemia - hypertension -.Hypokalemia Plan: Continue on current medication regime ,monitoring and symptomatic treatment. Continues diuresing on IV push Lasix,as per cardiology. Renal function worsening, reevaluate in a.m.. may need to back down. Surgeries reevaluation/recommendations pending. The impression and plan of care has been dictated as directed. : I performed a history and examination of this patient, discussed the same with the dictator. I agree with the dictator's note ,documented as a scribe. Any additional findings or plans will be noted.
[2018-06-04] MEDS: METOPROLOL TARTRATE 50 MG TAB PO SCH ×2 (05:49→18:24)
[2018-06-04 07:38] LABS: Basophils % (A) 1 %; Eosinophils # (A) 0.3 k/uL (0-0.7); Eosinophils % (A) 4 %; HCT 43.4 % (39.0-53.0); HGB 14.1 gm/dL (13.0-17.5); Lymphocytes % (A) 14 %; MCH 32.7 pg (25.0-35.0); MCHC 32.5 g/dL (31.0-37.0); MCV 100.7 fL (80.0-100.0); Macrocytosis Slight; Mean Platelet Volume 7.2; Monocytes # (A) 0.7 k/uL (0-1.0); Monocytes % (A) 9 %; Neutrophils # (A) 5.4 k/uL (1.3-7.7); Neutrophils % (A) 71 %; Platelet Count 180 k/uL (150-450); RBC 4.31 m/uL (4.30-5.90); RDW 14.5 % (11.5-15.5); WBC 7.6 k/uL (3.8-10.6)
[2018-06-04] MEDS: IPRATROPIUM-ALBUTEROL 3 ML NEB INHALATION SCH ×3 (07:49→21:38)
[2018-06-04] MEDS: MULTIVITAMINS, THERA 1 EACH TAB PO SCH (08:01)
[2018-06-04] MEDS: FUROSEMIDE 10 MG/ML 4 ML VIAL IV SCH ×2 (08:01→20:02)
[2018-06-04] MEDS: POTASSIUM CHLORIDE ER 20 MEQ TAB.ER PO SCH (08:01)
[2018-06-04] MEDS: VIT A,C & E-LUTEIN-MINERALS 1 EACH TAB PO SCH (08:01)
[2018-06-04] MEDS: SPIRONOLACTONE 25 MG TAB PO SCH (08:01)
[2018-06-04] MEDS: PRAVASTATIN SODIUM 40 MG TAB PO SCH (08:01)
[2018-06-04] MEDS: ASPIRIN 81 MG PO SCH (08:01)
[2018-06-04] MEDS: LOSARTAN 25 MG TAB PO SCH (08:01)
[2018-06-04 08:21] LABS: Calcium 9.1 mg/dL (8.4-10.2); Magnesium 1.9 mg/dL (1.6-2.3); Potassium 3.7 mmol/L (3.5-5.1)
--- NOTE | 2018-06-04 15:31 | P.PN ---
Subjective Progress Note Date: 06/04/18 This is an 83-year-old gentleman who presented to the hospital with symptoms of 3 day duration of shortness of breath, significant edema, mild abdominal discomfort. He has a known history of coronary artery disease and prior bypass surgery as well as stent placement, history of right carotid endarterectomy, hyperlipidemia, hypertension chronic persistent atrial fibrillation. Patient has been receiving diuretics for congestive cardiac failure, echocardiogram with Doppler study has been requested which is still pending. Blood pressure this morning 120/80, heart rate 90, 97% on 2 L of oxygen. Patient states he is barely moving his bowels, it is only like water, he had a KUB performed which showed a dilated large bowel consistent with generalized ileus and a surgical consultation has been requested. At the time of my examination this morning, patient states he just feels awful, he is uncomfortable in his abdomen, continues to have significant peripheral edema. He needs to be on Lasix 40 mg every 12 hourly. His INR today is 3.3. Sodium 138, potassium 4.3, BUN 31, creatinine 1.3. 06/01/2018 Patient was seen and examined this morning, continues to be on a Cardizem drip at 5 mg per hour. We will continue this for the next couple of days. Patient is scheduled today to undergo colonoscopy by Dr. Carlisle. He is sitting up in the chair today, and does state that he feels better overall. Continues to have significantly firm abdomen. Blood pressure 128/80 with a heart rate in the 80s, 96% on 2 L of oxygen. White blood cell count 10.1, hemoglobin 13.6, platelet count 198. INR 2.9. Sodium 140, potassium 3.2, BUN 31, creatinine 1.2. Magnesium 1.9. 06/02/2018 Patient was seen and examined this morning, he underwent a colonoscopy with decompression of transverse colon distention yesterday today he is noted to be sitting up in the chair tolerating a diet. Overall feeling better, abdomen much less firm today, he is passing flatus. Blood pressure 104/70 with a heart rate in the 80s. White blood cell count 9.5, hemoglobin 13.2, platelet count 153. INR 2.4, potassium 3.3 today which is being replaced. BUN 27 and creatinine 1.7. 06/03/2018 patient was seen and examined this morning, started having some more distention in his abdomen again today. He was seen by Dr. Shell who instructed the patient to be on liquids only. Hemodynamically he remained stable. INR 1.7, we'll continue with the Coumadin. Objective - Vital Signs Vital signs: Vital Signs Temp 97.9 F 06/04/18 12:00 Pulse 80 06/04/18 12:02 Resp 18 06/04/18 12:00 BP 120/83 06/04/18 12:00 Pulse Ox 96 06/04/18 12:00 Intake & Output 06/03/18 06/04/18 06/04/18 18:59 06:59 18:59 Intake Total 600 260 Output Total 350 2250 650 Balance 250 -2250 -390 Weight 115.4 kg Intake: IV 10 0.9 10 Oral 600 250 Output: Urine 350 2250 650 Uretheral (Littlejohn) 350 650 Other: Voiding Method Indwelling Catheter Indwelling Catheter Indwelling Catheter # Voids 1 # Bowel Movements 1 - Exam PHYSICAL EXAMINATION: GENERAL: 43-year-old gentleman in no acute distress at the time of my examination HEENT: Head is atraumatic, normocephalic. Pupils equal, round. Sclera anicteric. Conjunctiva are clear. Mucous membranes of the mouth are moist. Neck is supple. There is elevated jugular venous pressure. No carotid bruit is heard. HEART EXAMINATION: Heart S1, S2 normal. No murmur or gallop heard. CHEST EXAMINATION: Lungs reveal diminished air entry to bilateral bases. ABDOMEN: Much less firm , mildly distended, positive bowel sounds . EXTREMITIES: 2+ peripheral pulses with no evidence of peripheral edema and no calf tenderness noted. NEUROLOGIC patient is awake, alert and oriented X3. . - Labs CBC & Chem 7: 06/04/18 06:38 06/04/18 06:38 Labs: Abnormal Lab Results - Last 24 Hours (Table) 06/04/18 06/04/18 Range/Units 06:38 06:38 MCV 100.7 H (80.0-100.0) fL Chloride 108 H (98-107) mmol/L Carbon Dioxide 21 L (22-30) mmol/L BUN 29 H (9-20) mg/dL Creatinine 1.29 H (0.66-1.25) mg/dL Assessment and Plan Plan: Assessment and plan #1 congestive heart failure, LV function unknown, echo remains pending. #2 chronic persistent atrial fibrillation, rate under better control today., Anticoagulated. INR 1.7. #3 known history of coronary artery disease with prior bypass surgery and stent placements #4 abdominal pain and distention with evidence of possible ileus #5 hypertension #6 hyperlipidemia Plan We will continue the patient on current dose of IV Lasix. 10 you to monitor intake and output and daily weights, continue to monitor heart rate. DNP note has been reviewed, I agree with a documented findings and plan of care. Patient was seen and examined.
--- NOTE | 2018-06-04 15:33 | P.PN ---
Subjective Progress Note Date: 06/04/18 This is an 83-year-old gentleman who presented to the hospital with symptoms of 3 day duration of shortness of breath, significant edema, mild abdominal discomfort. He has a known history of coronary artery disease and prior bypass surgery as well as stent placement, history of right carotid endarterectomy, hyperlipidemia, hypertension chronic persistent atrial fibrillation. Patient has been receiving diuretics for congestive cardiac failure, echocardiogram with Doppler study has been requested which is still pending. Blood pressure this morning 120/80, heart rate 90, 97% on 2 L of oxygen. Patient states he is barely moving his bowels, it is only like water, he had a KUB performed which showed a dilated large bowel consistent with generalized ileus and a surgical consultation has been requested. At the time of my examination this morning, patient states he just feels awful, he is uncomfortable in his abdomen, continues to have significant peripheral edema. He needs to be on Lasix 40 mg every 12 hourly. His INR today is 3.3. Sodium 138, potassium 4.3, BUN 31, creatinine 1.3. 06/01/2018 Patient was seen and examined this morning, continues to be on a Cardizem drip at 5 mg per hour. We will continue this for the next couple of days. Patient is scheduled today to undergo colonoscopy by Dr. Carlisle. He is sitting up in the chair today, and does state that he feels better overall. Continues to have significantly firm abdomen. Blood pressure 128/80 with a heart rate in the 80s, 96% on 2 L of oxygen. White blood cell count 10.1, hemoglobin 13.6, platelet count 198. INR 2.9. Sodium 140, potassium 3.2, BUN 31, creatinine 1.2. Magnesium 1.9. 06/02/2018 Patient was seen and examined this morning, he underwent a colonoscopy with decompression of transverse colon distention yesterday today he is noted to be sitting up in the chair tolerating a diet. Overall feeling better, abdomen much less firm today, he is passing flatus. Blood pressure 104/70 with a heart rate in the 80s. White blood cell count 9.5, hemoglobin 13.2, platelet count 153. INR 2.4, potassium 3.3 today which is being replaced. BUN 27 and creatinine 1.7. 06/03/2018 patient was seen and examined this morning, started having some more distention in his abdomen again today. He was seen by Dr. Shell who instructed the patient to be on liquids only. Hemodynamically he remained stable. INR 1.7, we'll continue with the Coumadin. 06/04/2018 Patient seen and examined this morning, abdomen remained firm today. Heart rate in the low 90s. INR is pending. Objective - Vital Signs Vital signs: Vital Signs Temp 97.9 F 06/04/18 12:00 Pulse 80 06/04/18 12:02 Resp 18 06/04/18 12:00 BP 120/83 06/04/18 12:00 Pulse Ox 96 06/04/18 12:00 Intake & Output 06/03/18 06/04/18 06/04/18 18:59 06:59 18:59 Intake Total 600 740 Output Total 350 2250 650 Balance 250 -2250 90 Weight 115.4 kg Intake: IV 10 0.9 10 Oral 600 730 Output: Urine 350 2250 650 Uretheral (Littlejohn) 350 650 Other: Voiding Method Indwelling Catheter Indwelling Catheter Indwelling Catheter # Voids 1 # Bowel Movements 1 - Exam PHYSICAL EXAMINATION: GENERAL: 43-year-old gentleman in no acute distress at the time of my examination HEENT: Head is atraumatic, normocephalic. Pupils equal, round. Sclera anicteric. Conjunctiva are clear. Mucous membranes of the mouth are moist. Neck is supple. There is elevated jugular venous pressure. No carotid bruit is heard. HEART EXAMINATION: Heart S1, S2 normal. No murmur or gallop heard. CHEST EXAMINATION: Lungs reveal diminished air entry to bilateral bases. ABDOMEN: Firm , mildly distended, positive bowel sounds . EXTREMITIES: 2+ peripheral pulses with no evidence of peripheral edema and no calf tenderness noted. NEUROLOGIC patient is awake, alert and oriented X3. . - Labs CBC & Chem 7: 06/04/18 06:38 06/04/18 06:38 Labs: Abnormal Lab Results - Last 24 Hours (Table) 06/04/18 06/04/18 Range/Units 06:38 06:38 MCV 100.7 H (80.0-100.0) fL Chloride 108 H (98-107) mmol/L Carbon Dioxide 21 L (22-30) mmol/L BUN 29 H (9-20) mg/dL Creatinine 1.29 H (0.66-1.25) mg/dL Assessment and Plan Plan: Assessment and plan #1 congestive heart failure, LV function unknown, echo remains pending. #2 chronic persistent atrial fibrillation, rate under better control today., Anticoagulated. INR pending #3 known history of coronary artery disease with prior bypass surgery and stent placements #4 abdominal pain and distention with evidence of possible ileus #5 hypertension #6 hyperlipidemia Plan We will continue the patient on current dose of IV Lasix. Continue you to monitor intake and output and daily weights, continue to monitor heart rate. Check INR DNP note has been reviewed, I agree with a documented findings and plan of care. Patient was seen and examined.
[2018-06-04] MEDS: LATANOPROST 0.005% OPHTH DROPS 2.5 ML BTL BOTH EYES SCH (17:55)
[2018-06-04] MEDS: WARFARIN 7.5 MG TAB PO SCH (18:24)
--- NOTE | 2018-06-05 00:03 | PN ---
PROGRESS NOTE DATE OF SERVICE: 06/04/2018 This 83-year-old gentleman who was admitted with CHF acute exacerbation also had abdominal distention with chronic ileus also. The patient had a decompressive colonoscopy. No chest pain. No palpitations. No fever. Being followed closely with surgery as well as multiple consultants. EXAM: Alert and oriented x3. Pulse is 124, blood pressure 108/82, respiration 18, temperature 97.7, pulse ox 96% on room air. HEENT conjunctivae normal. NECK: No jugular venous distention. CARDIOVASCULAR: S1, S2 muffled. RESPIRATORY: Breath sounds diminished in the bases. A few scattered rhonchi and crackles. Abdomen is soft, obese, distended. Legs: Bilateral leg edema. Nervous system: No focal deficits. LABS: WBC 7.2, hemoglobin 14.2, sodium 141, potassium 3.7, creatinine is 1.29. ASSESSMENT: 1. Congestive heart failure acute exacerbation with acute on chronic systolic dysfunction, ejection fraction 30-35 percent. 2. Chest pain, possible acute non ST segment elevation myocardial infarction. Troponin 0.064. 3. Abdominal distention with chronic ileus status post decompression colonoscopy. 4. Chronic persistent atrial fibrillation. 5. Acute on chronic renal failure stage 3 baseline. 6. History of paralytic ileus. 7. Coumadin monitoring. 8. History of recent stroke with residual left-sided weakness. 9. Coronary artery disease, history of coronary artery bypass grafting. 10.Hypertension. 11.Hyperlipidemia. 12.Hypokalemia. RECOMMENDATIONS AND DISCUSSION: Recommend to continue current medications, management and symptomatic treatment. Otherwise, at this time, monitor fluids and electrolytes balance closely. Closely follow with surgery. Patient is also on IV Lasix at this time. Continue to monitor. Further recommendations to follow. Prognosis guarded. The patient seemed to have some obtain some relief after the colonoscopy, but now currently the patient has abdomen distention but still bowel movements also. Continue to monitor. Further recommendations to follow. MMODL / IJN: [id number] /
[2018-06-05] MEDS: METOPROLOL TARTRATE 50 MG TAB PO SCH ×2 (05:03→18:37)
[2018-06-05] MEDS: IPRATROPIUM-ALBUTEROL 3 ML NEB INHALATION SCH ×3 (07:38→19:55)
[2018-06-05] MEDS: SPIRONOLACTONE 25 MG TAB PO SCH (08:35)
[2018-06-05] MEDS: POTASSIUM CHLORIDE ER 20 MEQ TAB.ER PO SCH (08:35)
[2018-06-05] MEDS: ASPIRIN 81 MG PO SCH (08:35)
[2018-06-05] MEDS: LOSARTAN 25 MG TAB PO SCH (08:35)
[2018-06-05] MEDS: PRAVASTATIN SODIUM 40 MG TAB PO SCH (08:35)
[2018-06-05] MEDS: FUROSEMIDE 10 MG/ML 4 ML VIAL IV SCH ×2 (08:36→20:09)
[2018-06-05] MEDS: VIT A,C & E-LUTEIN-MINERALS 1 EACH TAB PO SCH (08:36)
[2018-06-05 08:38] LABS: INR 2.1 (<1.2); Prothrombin Time 20.9 sec (9.0-12.0)
[2018-06-05] MEDS: MULTIVITAMINS, THERA 1 EACH TAB PO SCH (12:28)
--- NOTE | 2018-06-05 12:56 | P.PN ---
Progress Note - Text Progress Note Date: 06/05/18 The patient feels better. He had a large amount of flatus and a bowel movement last night. He states his abdomen is less distended. On exam his vital signs are stable. His abdomen is soft. There is no significant tenderness. There is less distention. Resolving ileus. Patient will remain on clear liquids.
[2018-06-05] MEDS ORDERED: METOPROLOL TARTRATE 50 MG TAB PO STA (16:00)
--- NOTE | 2018-06-05 16:00 | P.PN ---
Subjective Progress Note Date: 06/05/18 This is an 83-year-old gentleman who presented to the hospital with symptoms of 3 day duration of shortness of breath, significant edema, mild abdominal discomfort. He has a known history of coronary artery disease and prior bypass surgery as well as stent placement, history of right carotid endarterectomy, hyperlipidemia, hypertension chronic persistent atrial fibrillation. Patient has been receiving diuretics for congestive cardiac failure, echocardiogram with Doppler study has been requested which is still pending. Blood pressure this morning 120/80, heart rate 90, 97% on 2 L of oxygen. Patient states he is barely moving his bowels, it is only like water, he had a KUB performed which showed a dilated large bowel consistent with generalized ileus and a surgical consultation has been requested. At the time of my examination this morning, patient states he just feels awful, he is uncomfortable in his abdomen, continues to have significant peripheral edema. He needs to be on Lasix 40 mg every 12 hourly. His INR today is 3.3. Sodium 138, potassium 4.3, BUN 31, creatinine 1.3. 06/01/2018 Patient was seen and examined this morning, continues to be on a Cardizem drip at 5 mg per hour. We will continue this for the next couple of days. Patient is scheduled today to undergo colonoscopy by Dr. Carlisle. He is sitting up in the chair today, and does state that he feels better overall. Continues to have significantly firm abdomen. Blood pressure 128/80 with a heart rate in the 80s, 96% on 2 L of oxygen. White blood cell count 10.1, hemoglobin 13.6, platelet count 198. INR 2.9. Sodium 140, potassium 3.2, BUN 31, creatinine 1.2. Magnesium 1.9. 06/02/2018 Patient was seen and examined this morning, he underwent a colonoscopy with decompression of transverse colon distention yesterday today he is noted to be sitting up in the chair tolerating a diet. Overall feeling better, abdomen much less firm today, he is passing flatus. Blood pressure 104/70 with a heart rate in the 80s. White blood cell count 9.5, hemoglobin 13.2, platelet count 153. INR 2.4, potassium 3.3 today which is being replaced. BUN 27 and creatinine 1.7. 06/03/2018 patient was seen and examined this morning, started having some more distention in his abdomen again today. He was seen by Dr. Shell who instructed the patient to be on liquids only. Hemodynamically he remained stable. INR 1.7, we'll continue with the Coumadin. 06/04/2018 Patient seen and examined this morning, abdomen remained firm today. Heart rate in the low 90s. INR is pending. 06/05/2018 Patient was seen and examined this morning, overall he is feeling better, starting to pass more flatus. Heart rate is up in the 1 teens to 120s today. Continues to diurese well overall. Objective - Vital Signs Vital signs: Vital Signs Temp 96.0 F L 06/05/18 11:55 Pulse 74 06/05/18 13:04 Resp 18 06/05/18 11:55 BP 119/76 06/05/18 11:55 Pulse Ox 94 L 06/05/18 11:55 Intake & Output 06/04/18 06/05/18 06/05/18 18:59 06:59 18:59 Intake Total 980 300 Output Total 1000 1250 Balance -20 -1250 300 Weight 112.8 kg Intake: IV 10 0.9 10 Oral 970 300 Output: Urine 1000 1250 Uretheral (Littlejohn) 1000 800 Other: Voiding Method Indwelling Catheter Indwelling Catheter Indwelling Catheter # Bowel Movements 2 - Exam PHYSICAL EXAMINATION: GENERAL: 43-year-old gentleman in no acute distress at the time of my examination HEENT: Head is atraumatic, normocephalic. Pupils equal, round. Sclera anicteric. Conjunctiva are clear. Mucous membranes of the mouth are moist. Neck is supple. There is elevated jugular venous pressure. No carotid bruit is heard. HEART EXAMINATION: Heart S1, S2 normal. No murmur or gallop heard. CHEST EXAMINATION: Lungs reveal diminished air entry to bilateral bases. ABDOMEN: Firm , mildly distended, positive bowel sounds . EXTREMITIES: 2+ peripheral pulses with no evidence of peripheral edema and no calf tenderness noted. NEUROLOGIC patient is awake, alert and oriented X3. . - Labs CBC & Chem 7: 06/04/18 06:38 06/04/18 06:38 Labs: Abnormal Lab Results - Last 24 Hours (Table) 06/05/18 Range/Units 07:46 PT 20.9 H (9.0-12.0) sec INR 2.1 H (<1.2) Assessment and Plan Plan: Assessment and plan #1 congestive heart failure, LV function unknown, echo remains pending. #2 chronic persistent atrial fibrillation, rate under better control today., Anticoagulated. INR pending #3 known history of coronary artery disease with prior bypass surgery and stent placements #4 abdominal pain and distention with evidence of possible ileus #5 hypertension #6 hyperlipidemia Plan We will continue the patient on current dose of IV Lasix. Continue you to monitor intake and output and daily weights, daily patient one additional dose of 50 mg of metoprolol today and then continue 100 twice a day. DNP note has been reviewed, I agree with a documented findings and plan of care. Patient was seen and examined.
[2018-06-05] MEDS: LATANOPROST 0.005% OPHTH DROPS 2.5 ML BTL BOTH EYES SCH (16:26)
[2018-06-05] MEDS: WARFARIN 7.5 MG TAB PO SCH (18:38)
[2018-06-06] MEDS: METOPROLOL TARTRATE 50 MG TAB PO SCH ×2 (06:27→16:32)
[2018-06-06] MEDS: IPRATROPIUM-ALBUTEROL 3 ML NEB INHALATION SCH ×3 (07:46→20:26)
--- NOTE | 2018-06-06 07:59 | PN ---
PROGRESS NOTE DATE OF SERVICE: 06/05/2018 This 83-year-old gentleman who was admitted with CHF acute exacerbation with acute on chronic systolic dysfunction, ejection fraction 30% to 35%. Patient is being closely monitored. Multiple consultants are following the patient. No chest pain or palpitations. No fever. The patient has got colonic ileus and also had colonoscopy. PHYSICAL EXAMINATION: On exam, alert and oriented x3. Pulse is 98, blood pressure 100/70, respiration 18, temperature 98.7, pulse ox 98% on room air. HEENT: Conjunctivae normal. NECK: No jugular venous distention. CARDIOVASCULAR: S1, S2 muffled. RESPIRATORY: Breath sounds diminished at the bases. A few scattered rhonchi and crackles. Abdomen is soft, distended. LEGS: Bilateral leg edema. NERVOUS SYSTEM: No focal deficit. LABS: Labs are WBC 7.6, hemoglobin is 14.1. INR 2.1. Creatinine is 1.29. ASSESSMENT: 1. Congestive heart failure acute exacerbation with acute on chronic systolic dysfunction, ejection fraction 30% to 35%, present on admission. 2. Chest pain, possible acute non ST segment elevation myocardial infarction. Troponin 0.064, present on admission. 3. Abdominal distention with colonic ileus, status post decompression colonoscopy. 4. Chronic persistent atrial fibrillation. 5. Acute on chronic renal failure stage 3 baseline. 6. History of paralytic ileus. 7. Coumadin monitoring. 8. Status post colonoscopy. 9. History of recent stroke with residual left-sided weakness. 10.Coronary artery disease, coronary artery bypass grafting. 11.Hypertension. 12.Hyperlipidemia. 13.Hypokalemia. RECOMMENDATIONS AND DISCUSSION: Recommend to continue current medications, continue symptomatic treatment. Increase ambulation. Closely follow with surgery. Prognosis guarded. Further recommendations to follow. MMODL / IJN: [id number] /
[2018-06-06] MEDS: FUROSEMIDE 10 MG/ML 4 ML VIAL IV SCH ×2 (08:29→21:47)
[2018-06-06] MEDS: LATANOPROST 0.005% OPHTH DROPS 2.5 ML BTL BOTH EYES SCH (08:30)
[2018-06-06] MEDS: SPIRONOLACTONE 25 MG TAB PO SCH (08:30)
[2018-06-06] MEDS: PRAVASTATIN SODIUM 40 MG TAB PO SCH (08:30)
[2018-06-06] MEDS: ASPIRIN 81 MG PO SCH (08:30)
[2018-06-06] MEDS: POTASSIUM CHLORIDE ER 20 MEQ TAB.ER PO SCH (08:30)
[2018-06-06] MEDS: VIT A,C & E-LUTEIN-MINERALS 1 EACH TAB PO SCH (08:33)
[2018-06-06] MEDS: MULTIVITAMINS, THERA 1 EACH TAB PO SCH (12:00)
[2018-06-06] MEDS: LOSARTAN 25 MG TAB PO SCH (12:00)
--- NOTE | 2018-06-06 12:42 | P.PN ---
Subjective Progress Note Date: 06/06/18 This is an 83-year-old gentleman who presented to the hospital with symptoms of 3 day duration of shortness of breath, significant edema, mild abdominal discomfort. He has a known history of coronary artery disease and prior bypass surgery as well as stent placement, history of right carotid endarterectomy, hyperlipidemia, hypertension chronic persistent atrial fibrillation. Patient has been receiving diuretics for congestive cardiac failure, echocardiogram with Doppler study has been requested which is still pending. Blood pressure this morning 120/80, heart rate 90, 97% on 2 L of oxygen. Patient states he is barely moving his bowels, it is only like water, he had a KUB performed which showed a dilated large bowel consistent with generalized ileus and a surgical consultation has been requested. At the time of my examination this morning, patient states he just feels awful, he is uncomfortable in his abdomen, continues to have significant peripheral edema. He needs to be on Lasix 40 mg every 12 hourly. His INR today is 3.3. Sodium 138, potassium 4.3, BUN 31, creatinine 1.3. 06/01/2018 Patient was seen and examined this morning, continues to be on a Cardizem drip at 5 mg per hour. We will continue this for the next couple of days. Patient is scheduled today to undergo colonoscopy by Dr. Carlisle. He is sitting up in the chair today, and does state that he feels better overall. Continues to have significantly firm abdomen. Blood pressure 128/80 with a heart rate in the 80s, 96% on 2 L of oxygen. White blood cell count 10.1, hemoglobin 13.6, platelet count 198. INR 2.9. Sodium 140, potassium 3.2, BUN 31, creatinine 1.2. Magnesium 1.9. 06/02/2018 Patient was seen and examined this morning, he underwent a colonoscopy with decompression of transverse colon distention yesterday today he is noted to be sitting up in the chair tolerating a diet. Overall feeling better, abdomen much less firm today, he is passing flatus. Blood pressure 104/70 with a heart rate in the 80s. White blood cell count 9.5, hemoglobin 13.2, platelet count 153. INR 2.4, potassium 3.3 today which is being replaced. BUN 27 and creatinine 1.7. 06/03/2018 patient was seen and examined this morning, started having some more distention in his abdomen again today. He was seen by Dr. Shell who instructed the patient to be on liquids only. Hemodynamically he remained stable. INR 1.7, we'll continue with the Coumadin. 06/04/2018 Patient seen and examined this morning, abdomen remained firm today. Heart rate in the low 90s. INR is pending. 06/05/2018 Patient was seen and examined this morning, overall he is feeling better, starting to pass more flatus. Heart rate is up in the 1 teens to 120s today. Continues to diurese well overall. 06/06/2018 Patient was seen and examined this morning, overall he does state he is feeling better, he is passing small amount of BM, states that it's very watery. Not much gas movement in the belly. His heart rate this morning was documented to be up in the 1 teens however he had not yet received his beta dena. He denies any palpitations, breathing has been stable. Objective - Vital Signs Vital signs: Vital Signs Temp 97.7 F 06/06/18 11:23 Pulse 104 H 06/06/18 11:23 Resp 20 06/06/18 11:23 BP 90/58 06/06/18 11:23 Pulse Ox 99 06/06/18 11:23 Intake & Output 06/05/18 06/06/18 06/06/18 18:59 06:59 18:59 Intake Total 600 100 240 Output Total 800 Balance -200 100 240 Weight 111.6 kg Intake: Oral 600 100 240 Output: Urine 800 Uretheral (Littlejohn) 800 Other: Voiding Method Indwelling Catheter Indwelling Catheter Indwelling Catheter # Voids 1 # Bowel Movements 2 1 1 - Exam PHYSICAL EXAMINATION: GENERAL: 43-year-old gentleman in no acute distress at the time of my examination HEENT: Head is atraumatic, normocephalic. Pupils equal, round. Sclera anicteric. Conjunctiva are clear. Mucous membranes of the mouth are moist. Neck is supple. There is elevated jugular venous pressure. No carotid bruit is heard. HEART EXAMINATION: Heart S1, S2 normal. No murmur or gallop heard. CHEST EXAMINATION: Lungs reveal diminished air entry to bilateral bases. ABDOMEN: Firm , mildly distended, positive bowel sounds . EXTREMITIES: 2+ peripheral pulses with no evidence of peripheral edema and no calf tenderness noted. NEUROLOGIC patient is awake, alert and oriented X3. . - Labs CBC & Chem 7: 06/04/18 06:38 06/04/18 06:38 Assessment and Plan Plan: Assessment and plan #1 congestive heart failure, LV function unknown, echo remains pending. #2 chronic persistent atrial fibrillation, rate under better control today., Anticoagulated. INR pending #3 known history of coronary artery disease with prior bypass surgery and stent placements #4 abdominal pain and distention with evidence of possible ileus #5 hypertension #6 hyperlipidemia Plan We will continue the patient on current dose of IV Lasix. Continue you to monitor intake and output and daily weights, daily patient one additional dose of 50 mg of metoprolol today and then continue 100 twice a day. We will repeat a chest x-ray tomorrow. DNP note has been reviewed, I agree with a documented findings and plan of care. Patient was seen and examined.
[2018-06-06 14:51] VITALS: BMI 34.3
--- NOTE | 2018-06-06 15:06 | P.PN ---
Progress Note - Text Progress Note Date: 06/06/18 The patient had several large bowel movements last night. On exam his vital signs are stable. His abdomen is soft. There is still significant distention. There is no rebound or guarding. Resolving ileus. Patient was placed on Reglan 10 mg IV every 6 hours. Patient will be observed.
[2018-06-06] MEDS: METOCLOPRAMIDE 5 MG/ML 2 ML VIAL IVP SCH ×2 (16:20→21:47)
[2018-06-06] MEDS: WARFARIN 7.5 MG TAB PO SCH (16:32)
--- NOTE | 2018-06-06 20:41 | PN ---
PROGRESS NOTE DATE OF SERVICE: 06/06/2018 This 83-year-old gentleman who was admitted with CHF, acute exacerbation, also had significant abdominal distention and chronic ileus. No chest pain. No palpitations. No fever. Dr. Britt is following the patient closely. On exam, alert and oriented x3. Pulse 129, blood pressure 106/72, respiration 16, temperature 97.4, pulse ox 98% on room air. HEENT: Conjunctivae normal. NECK: No jugular venous distention. CARDIOVASCULAR SYSTEM: S1, S2 muffled. RESPIRATORY SYSTEM: Breath sounds diminished at the bases. A few scattered rhonchi and crackles. ABDOMEN: Soft. Diffuse distention present. Non-tender. No mass palpable. LEGS: Bilateral leg edema. NERVOUS SYSTEM: No focal deficit. LABS: WBC 7.6, hemoglobin 14.1. INR is 2.1. Sodium 141, potassium 3.7, creatinine 1.29. ASSESSMENT: 1. Congestive heart failure, acute exacerbation, with acute on chronic systolic dysfunction, ejection fraction 30% to 35%, present on admission. 2. Chest pain, possible acute [id number]-elevation myocardial infarction, troponin 0.64, present on admission. 3. Abdominal distention with colonic ileus, status post decompression and colonoscopy. 4. Chronic persistent atrial fibrillation. 5. Acute on chronic renal failure, stage III, baseline. 6. History of paralytic ileus. 7. Coumadin monitoring. 8. Status post colonoscopy. 9. History of recent stroke with residual left-sided weakness. 10.Coronary artery disease, coronary artery bypass grafting. 11.Hypertension. 12.Hyperlipidemia. 13.Hypokalemia. RECOMMENDATIONS AND DISCUSSION: I recommend to continue current medication, continue symptomatic treatment. Closely follow with Cardiology as well as Surgery, who is following the patient for abdominal distention, chronic ileus. As mentioned earlier, patient underwent colonoscopy. Continue to monitor. The patient does have bowel movements at this time. Further recommendations to follow. MMODL / IJN: [id number] /
[2018-06-07] MEDS: METOPROLOL TARTRATE 50 MG TAB PO SCH (07:06)
[2018-06-07] MEDS: METOCLOPRAMIDE 5 MG/ML 2 ML VIAL IVP SCH ×4 (07:06→22:00)
[2018-06-07 08:08] LABS: Calcium 9.2 mg/dL (8.4-10.2)
[2018-06-07 08:14] LABS: Magnesium 1.8 mg/dL (1.6-2.3); Potassium 3.4 mmol/L (3.5-5.1)
[2018-06-07 08:24] LABS: HCT 42.5 % (39.0-53.0); HGB 14.7 gm/dL (13.0-17.5); MCH 33.3 pg (25.0-35.0); MCHC 34.6 g/dL (31.0-37.0); MCV 96.3 fL (80.0-100.0); Mean Platelet Volume 8.1; Platelet Count 170 k/uL (150-450); RBC 4.41 m/uL (4.30-5.90); RDW 14.1 % (11.5-15.5); WBC 7.9 k/uL (3.8-10.6)
--- NOTE | 2018-06-07 08:31 | XR ---
EXAMINATION TYPE: XR chest 2V DATE OF EXAM: 06/07/2018 COMPARISON: Prior chest x-ray 05/28/2018 HISTORY: Congestive heart failure follow-up TECHNIQUE: Frontal and lateral views of the chest are obtained. FINDINGS: Patient is post median sternotomy and the heart remains enlarged. No evident pneumothorax or pleural effusion. Pulmonary vascularity and brittany within normal limits. Distended loops of colon baker spected in the upper abdomen. There are overlying cardiac leads. Coronary artery calcifications, poss ible stent noted. IMPRESSION: Interval improvement in patient's pleural effusions. Persistent cardiomegaly. Coronary a rtery disease. Gas distended colon loops.
[2018-06-07] MEDS: SPIRONOLACTONE 25 MG TAB PO SCH (08:54)
[2018-06-07] MEDS: VIT A,C & E-LUTEIN-MINERALS 1 EACH TAB PO SCH (08:54)
[2018-06-07] MEDS: PRAVASTATIN SODIUM 40 MG TAB PO SCH (08:55)
[2018-06-07] MEDS: POTASSIUM CHLORIDE ER 20 MEQ TAB.ER PO SCH (08:55)
[2018-06-07] MEDS: MULTIVITAMINS, THERA 1 EACH TAB PO SCH (08:55)
[2018-06-07] MEDS: ASPIRIN 81 MG PO SCH (08:55)
[2018-06-07] MEDS: LOSARTAN 25 MG TAB PO SCH (08:55)
[2018-06-07] MEDS: FUROSEMIDE 10 MG/ML 4 ML VIAL IV SCH ×2 (08:56→21:59)
[2018-06-07] MEDS: LATANOPROST 0.005% OPHTH DROPS 2.5 ML BTL BOTH EYES SCH (08:56)
[2018-06-07] MEDS ORDERED: POTASSIUM CHLORIDE ER 20 MEQ TAB.ER PO STA (09:43)
[2018-06-07] MEDS: IPRATROPIUM-ALBUTEROL 3 ML NEB INHALATION SCH ×3 (10:15→21:16)
--- NOTE | 2018-06-07 12:45 | P.PN ---
Subjective Progress Note Date: 06/07/18 This is an 83-year-old gentleman who presented to the hospital with symptoms of 3 day duration of shortness of breath, significant edema, mild abdominal discomfort. He has a known history of coronary artery disease and prior bypass surgery as well as stent placement, history of right carotid endarterectomy, hyperlipidemia, hypertension chronic persistent atrial fibrillation. Patient has been receiving diuretics for congestive cardiac failure, echocardiogram with Doppler study has been requested which is still pending. Blood pressure this morning 120/80, heart rate 90, 97% on 2 L of oxygen. Patient states he is barely moving his bowels, it is only like water, he had a KUB performed which showed a dilated large bowel consistent with generalized ileus and a surgical consultation has been requested. At the time of my examination this morning, patient states he just feels awful, he is uncomfortable in his abdomen, continues to have significant peripheral edema. He needs to be on Lasix 40 mg every 12 hourly. His INR today is 3.3. Sodium 138, potassium 4.3, BUN 31, creatinine 1.3. 06/01/2018 Patient was seen and examined this morning, continues to be on a Cardizem drip at 5 mg per hour. We will continue this for the next couple of days. Patient is scheduled today to undergo colonoscopy by Dr. Carlisle. He is sitting up in the chair today, and does state that he feels better overall. Continues to have significantly firm abdomen. Blood pressure 128/80 with a heart rate in the 80s, 96% on 2 L of oxygen. White blood cell count 10.1, hemoglobin 13.6, platelet count 198. INR 2.9. Sodium 140, potassium 3.2, BUN 31, creatinine 1.2. Magnesium 1.9. 06/02/2018 Patient was seen and examined this morning, he underwent a colonoscopy with decompression of transverse colon distention yesterday today he is noted to be sitting up in the chair tolerating a diet. Overall feeling better, abdomen much less firm today, he is passing flatus. Blood pressure 104/70 with a heart rate in the 80s. White blood cell count 9.5, hemoglobin 13.2, platelet count 153. INR 2.4, potassium 3.3 today which is being replaced. BUN 27 and creatinine 1.7. 06/03/2018 patient was seen and examined this morning, started having some more distention in his abdomen again today. He was seen by Dr. Shell who instructed the patient to be on liquids only. Hemodynamically he remained stable. INR 1.7, we'll continue with the Coumadin. 06/04/2018 Patient seen and examined this morning, abdomen remained firm today. Heart rate in the low 90s. INR is pending. 06/05/2018 Patient was seen and examined this morning, overall he is feeling better, starting to pass more flatus. Heart rate is up in the 1 teens to 120s today. Continues to diurese well overall. 06/06/2018 Patient was seen and examined this morning, overall he does state he is feeling better, he is passing small amount of BM, states that it's very watery. Not much gas movement in the belly. His heart rate this morning was documented to be up in the 1 teens however he had not yet received his beta dena. He denies any palpitations, breathing has been stable. 06/07/2018 Patient was seen and examined this morning, heart rate in the 120 range today. We will increase his dose of beta dena to 75 mg 3 times a day. Denies any palpitations, no chest discomfort, Objective - Vital Signs Vital signs: Vital Signs Temp 96.0 F L 06/07/18 11:54 Pulse 126 H 06/07/18 11:54 Resp 18 06/07/18 11:54 BP 117/74 06/07/18 11:54 Pulse Ox 96 06/07/18 11:54 Intake & Output 06/06/18 06/07/18 06/07/18 18:59 06:59 18:59 Intake Total 240 240 Output Total 2850 Balance 240 -2850 240 Weight 111.6 kg 111.8 kg Intake: Oral 240 240 Output: Urine 2050 Uretheral (Littlejohn) 800 Stool 800 Other: Voiding Method Indwelling Catheter Indwelling Catheter Indwelling Catheter # Voids 1 # Bowel Movements 2 1 - Exam PHYSICAL EXAMINATION: GENERAL: 43-year-old gentleman in no acute distress at the time of my examination HEENT: Head is atraumatic, normocephalic. Pupils equal, round. Sclera anicteric. Conjunctiva are clear. Mucous membranes of the mouth are moist. Neck is supple. There is elevated jugular venous pressure. No carotid bruit is heard. HEART EXAMINATION: Heart S1, S2 normal. No murmur or gallop heard. CHEST EXAMINATION: Lungs reveal diminished air entry to bilateral bases. ABDOMEN: Firm , mildly distended, positive bowel sounds . EXTREMITIES: 2+ peripheral pulses with no evidence of peripheral edema and no calf tenderness noted. NEUROLOGIC patient is awake, alert and oriented X3. . - Labs CBC & Chem 7: 06/07/18 07:18 06/07/18 07:18 Labs: Abnormal Lab Results - Last 24 Hours (Table) 06/07/18 Range/Units 07:18 Potassium 3.4 L (3.5-5.1) mmol/L BUN 30 H (9-20) mg/dL Creatinine 1.40 H (0.66-1.25) mg/dL Assessment and Plan Plan: Assessment and plan #1 congestive heart failure, LV function unknown, echo remains pending. #2 chronic persistent atrial fibrillation, rate under better control today., Anticoagulated. INR pending #3 known history of coronary artery disease with prior bypass surgery and stent placements #4 abdominal pain and distention with evidence of possible ileus #5 hypertension #6 hyperlipidemia Plan We will continue the patient on current dose of IV Lasix. Continue you to monitor intake and output and daily weights, increase metoprolol to 75 mg 3 times a day. DNP note has been reviewed, I agree with a documented findings and plan of care. Patient was seen and examined.
--- NOTE | 2018-06-07 13:33 | P.PN ---
Progress Note - Text Progress Note Date: 06/07/18 Patient states that he has had several large flatus and small bowel movements last night. He still has complaints of abdominal firmness and distention. On exam his vital signs are stable. Abdomen is distended firm nontender. Ileus. Patient has had some evidence of bowel function with flatus and bowel movements. Patient will have a repeat x-rays of the abdomen performed. He'll remain on clear liquid diet.
--- NOTE | 2018-06-07 16:21 | XR ---
EXAMINATION TYPE: XR abdomen complete w decub DATE OF EXAM: 06/07/2018 COMPARISON: Prior exam 05/31/2018 HISTORY: Ileus TECHNIQUE: Supine, upright, and left side down lateral decubitus views of the abdomen are obtained o n 7 images. FINDINGS: There is no evidence for pneumoperitoneum. The bowel gas pattern is remarkable for distended loops of colon as on prior exam, there are air-flui d levels present. No mass effects are seen. No unusual calcifications. Degenerative disc changes are present in the visualized spine. Probable v ascular calcifications within the pelvis. IMPRESSION: Distended loops of colon are similar to prior exam, correlate to exclude obstruction. Findings could represent ileus, there is no pneumoperitoneum. Follow-up as indicated.
[2018-06-07] MEDS: WARFARIN 7.5 MG TAB PO SCH (18:07)
[2018-06-07] MEDS: METOPROLOL TARTRATE 25 MG TAB PO SCH ×2 (18:10→22:00)
[2018-06-08] MEDS: METOCLOPRAMIDE 5 MG/ML 2 ML VIAL IVP SCH ×4 (03:30→20:43)
[2018-06-08] MEDS: METOPROLOL TARTRATE 25 MG TAB PO SCH ×3 (05:01→20:47)
[2018-06-08] MEDS: IPRATROPIUM-ALBUTEROL 3 ML NEB INHALATION SCH ×3 (07:58→21:15)
[2018-06-08] MEDS: MULTIVITAMINS, THERA 1 EACH TAB PO SCH (08:18)
[2018-06-08] MEDS: ASPIRIN 81 MG PO SCH (08:18)
[2018-06-08] MEDS: POTASSIUM CHLORIDE ER 20 MEQ TAB.ER PO SCH (08:18)
[2018-06-08] MEDS: FUROSEMIDE 10 MG/ML 4 ML VIAL IV SCH ×2 (08:18→20:43)
[2018-06-08] MEDS: VIT A,C & E-LUTEIN-MINERALS 1 EACH TAB PO SCH (08:18)
[2018-06-08] MEDS: PRAVASTATIN SODIUM 40 MG TAB PO SCH (08:18)
[2018-06-08] MEDS: SPIRONOLACTONE 25 MG TAB PO SCH (08:18)
[2018-06-08] MEDS: LATANOPROST 0.005% OPHTH DROPS 2.5 ML BTL BOTH EYES SCH (08:19)
[2018-06-08] MEDS: LOSARTAN 25 MG TAB PO SCH (08:19)
--- NOTE | 2018-06-08 13:02 | P.PN ---
Subjective Progress Note Date: 06/08/18 This is an 83-year-old gentleman who presented to the hospital with symptoms of 3 day duration of shortness of breath, significant edema, mild abdominal discomfort. He has a known history of coronary artery disease and prior bypass surgery as well as stent placement, history of right carotid endarterectomy, hyperlipidemia, hypertension chronic persistent atrial fibrillation. Patient has been receiving diuretics for congestive cardiac failure, echocardiogram with Doppler study has been requested which is still pending. Blood pressure this morning 120/80, heart rate 90, 97% on 2 L of oxygen. Patient states he is barely moving his bowels, it is only like water, he had a KUB performed which showed a dilated large bowel consistent with generalized ileus and a surgical consultation has been requested. At the time of my examination this morning, patient states he just feels awful, he is uncomfortable in his abdomen, continues to have significant peripheral edema. He needs to be on Lasix 40 mg every 12 hourly. His INR today is 3.3. Sodium 138, potassium 4.3, BUN 31, creatinine 1.3. 06/01/2018 Patient was seen and examined this morning, continues to be on a Cardizem drip at 5 mg per hour. We will continue this for the next couple of days. Patient is scheduled today to undergo colonoscopy by Dr. Carlisle. He is sitting up in the chair today, and does state that he feels better overall. Continues to have significantly firm abdomen. Blood pressure 128/80 with a heart rate in the 80s, 96% on 2 L of oxygen. White blood cell count 10.1, hemoglobin 13.6, platelet count 198. INR 2.9. Sodium 140, potassium 3.2, BUN 31, creatinine 1.2. Magnesium 1.9. 06/02/2018 Patient was seen and examined this morning, he underwent a colonoscopy with decompression of transverse colon distention yesterday today he is noted to be sitting up in the chair tolerating a diet. Overall feeling better, abdomen much less firm today, he is passing flatus. Blood pressure 104/70 with a heart rate in the 80s. White blood cell count 9.5, hemoglobin 13.2, platelet count 153. INR 2.4, potassium 3.3 today which is being replaced. BUN 27 and creatinine 1.7. 06/03/2018 patient was seen and examined this morning, started having some more distention in his abdomen again today. He was seen by Dr. Shell who instructed the patient to be on liquids only. Hemodynamically he remained stable. INR 1.7, we'll continue with the Coumadin. 06/04/2018 Patient seen and examined this morning, abdomen remained firm today. Heart rate in the low 90s. INR is pending. 06/05/2018 Patient was seen and examined this morning, overall he is feeling better, starting to pass more flatus. Heart rate is up in the 1 teens to 120s today. Continues to diurese well overall. 06/06/2018 Patient was seen and examined this morning, overall he does state he is feeling better, he is passing small amount of BM, states that it's very watery. Not much gas movement in the belly. His heart rate this morning was documented to be up in the 1 teens however he had not yet received his beta dena. He denies any palpitations, breathing has been stable. 06/07/2018 Patient was seen and examined this morning, heart rate in the 120 range today. We will increase his dose of beta dena to 75 mg 3 times a day. Denies any palpitations, no chest discomfort, 06/08/2018 Patient seen and examined this morning, he is passing some flatus and having small bowel movements but remains significantly distended and firm. He did have a repeat 3 of the abdomen which revealed distended loops of colon similar to prior exam, correlate to exclude obstruction. Findings could represent ileus there is no pneumoperitoneum. Heart rate this morning is remaining in the 1 teens to 120 range. We will add a small dose of Cardizem to his medication regime. Objective - Vital Signs Vital signs: Vital Signs Temp 97.4 F L 06/08/18 11:43 Pulse 129 H 06/08/18 11:43 Resp 20 06/08/18 11:43 BP 116/71 06/08/18 11:43 Pulse Ox 98 06/08/18 11:43 Intake & Output 06/07/18 06/08/18 06/08/18 18:59 06:59 18:59 Intake Total 450 240 Output Total 500 1800 Balance -50 -1800 240 Weight 113 kg Intake: IV 10 0.9 10 Oral 440 240 Output: Urine 500 800 Stool 1000 Other: Voiding Method Indwelling Catheter Indwelling Catheter Indwelling Catheter # Voids 1 # Bowel Movements 1 - Exam PHYSICAL EXAMINATION: GENERAL: 43-year-old gentleman in no acute distress at the time of my examination HEENT: Head is atraumatic, normocephalic. Pupils equal, round. Sclera anicteric. Conjunctiva are clear. Mucous membranes of the mouth are moist. Neck is supple. There is elevated jugular venous pressure. No carotid bruit is heard. HEART EXAMINATION: Heart S1, S2 irregularly irregular . No murmur or gallop heard. CHEST EXAMINATION: Lungs reveal diminished air entry to bilateral bases. ABDOMEN: Firm,distended, positive bowel sounds . EXTREMITIES: 2+ peripheral pulses with no evidence of peripheral edema and no calf tenderness noted. NEUROLOGIC patient is awake, alert and oriented X3. . - Labs CBC & Chem 7: 06/07/18 07:18 06/07/18 07:18 Assessment and Plan Plan: Assessment and plan #1 congestive heart failure, LV function unknown, echo remains pending. #2 chronic persistent atrial fibrillation, rate under better control today., Anticoagulated. INR pending #3 known history of coronary artery disease with prior bypass surgery and stent placements #4 abdominal pain and distention with evidence of possible ileus #5 hypertension #6 hyperlipidemia Plan We will continue the patient on current dose of IV Lasix. Continue you to monitor intake and output and daily weights, add oral Cardizem to his medication regime. DNP note has been reviewed, I agree with a documented findings and plan of care. Patient was seen and examined.
[2018-06-08] MEDS: DILTIAZEM ORAL 30 MG TAB PO SCH ×3 (13:18→20:45)
--- NOTE | 2018-06-08 17:02 | P.PN ---
Progress Note - Text Progress Note Date: 06/08/18 The patient has had some flatus. He still has significant abdominal distention. On exam his vital signs are stable. Abdomen is firm distended. Patient will undergo decompressive colonoscopy in the a.m.
[2018-06-08] MEDS: WARFARIN 7.5 MG TAB PO SCH (17:48)
[2018-06-08 20:22] LABS: Basophils % (A) 0 %; Eosinophils # (A) 0.3 k/uL (0-0.7); Eosinophils % (A) 2 %; HCT 43.5 % (39.0-53.0); HGB 14.5 gm/dL (13.0-17.5); Lymphocytes # (A) 1.2 k/uL (1.0-4.8); Lymphocytes % (A) 7 %; MCH 32.3 pg (25.0-35.0); MCHC 33.3 g/dL (31.0-37.0); Mean Platelet Volume 7.4; Monocytes # (A) 1.3 k/uL (0-1.0); Monocytes % (A) 7 %; Neutrophils # (A) 14.8 k/uL (1.3-7.7); Neutrophils % (A) 82 %; Platelet Count 183 k/uL (150-450); RBC 4.49 m/uL (4.30-5.90); RDW 14.3 % (11.5-15.5); WBC 18.2 k/uL (3.8-10.6)
--- NOTE | 2018-06-09 00:17 | P.PN ---
Subjective Progress Note Date: 06/07/18 Progress note being dictated for Dr. Leiva. Interval history: Is as an 83-year-old gentleman admitted with acute CHF exacerbation, chest pain, possible acute non-STEMI, abdominal distention with colonic ileus, acute on chronic renal failure and multiple other medical issues. Telemetry reporting atrial fibrillation, rate better controlled. Maintained on Cardizem drip. INR 3.3. Diuresing well on Lasix IV push with 24- hour I&O reflecting a negative fluid balance. Significant edema of left upper and bilateral lower extremities, Dopplers ordered.Echo suboptimal, reporting moderately severe impaired LV function, EF between 30 and 35% lateral and apical hypokinesis, mild to moderate mitral regurgitation aortic root borderline dilated up to 3.8 cm. , significantly distended abdomen, ileus. Evaluated by surgery with barium enema recommended . Denies chest pain, palpitations. Creatinine 1.35. 05/31/2018 , Short of breath at rest. Left arm negative for DVT, bilateral lower extremities negative for DVT, with some subcutaneous edema in the popliteal regions. Barium enema reported. No abdominal narrowing, severely distended colon, marketed air distention with no evidence of obstruction or volvulus, severe colonic ileus. Passing minimal flatus, two small bowel movements. Abdominal x-ray reporting extensive large bowel gas consistent with generalized ileus, no free air, no change. Surgery recommending colonoscopy for decompression, tomorrow. A. fib with paroximal rapid ventricular rate .Continues on Cardizem drip. Diuresing on Lasix IV. Creatinine improving, 1.25. Potassium 3.4, receiving supplementation. Coumadin held, INR 3.2. 06/01/2018. Maintained on Cardizem drip, atrial fibrillation, controlled currently. Potassium 3.2, receiving supplementation. INR 2.9, scheduled for decompression colonoscopy today as recommended by surgery.NPO. Creatinine 1.28. Denies chest pain, palpitations. 06/02/2018 underwent decompression colonoscopy yesterday, tolerated well. Sitting up in chair, abdomen mildly softer, still firm. Passing flatus. Tolerating oral diet with no nausea vomiting or diarrhea. Denies abdominal pain. Continues on Cardizem drip, IV Lasix.diuresing well with 24-hour I&O reflecting a negative fluid balance. Receiving potassium supplements with potassium up to 3.3. Inr 2.4. 06/03/2018 abdomen remains firm, distended. Denies abdominal pain. No flatus, no bowel movement. Diet backed down to clears. Minimal burping. Renal function worsening, creatinine 1.36. INR 1.7. 06/07/2018 tolerated clear liquids, loose bowel movements. Maintained on Lasix IV push. Creatinine trending up. Telemetry atrial fibrillation with heart rates in the 120s. Denies any chest pain, palpitations. Objective - Vital Signs Vital signs: Vital Signs Temp 96.0 F L 06/07/18 16:00 Pulse 120 H 06/07/18 16:00 Resp 18 06/07/18 16:00 BP 98/69 06/07/18 16:00 Pulse Ox 92 L 06/07/18 16:00 Intake & Output 06/06/18 06/07/18 06/07/18 18:59 06:59 18:59 Intake Total 240 250 Output Total 2850 500 Balance 240 -2850 -250 Weight 111.6 kg 111.8 kg Intake: IV 10 0.9 10 Oral 240 240 Output: Urine 2050 500 Uretheral (Littlejohn) 800 Stool 800 Other: Voiding Method Indwelling Catheter Indwelling Catheter Indwelling Catheter # Voids 1 # Bowel Movements 2 1 - Exam PHYSICAL EXAM: VITAL SIGNS: As above GENERAL: Sitting up in bed, no acute distress, HEENT: Conjunctivae normal. eyes normal. NECK: Positive JVD. No thyroid enlargement. No LNs CARDIOVASCULAR: S1, S2 muffled. Irregular, No murmur RESPIRATION: Breath sounds diminished in the bases. No rhonchi or crackles. ABDOMEN: Firm, distended, nontender.Hypoactive bowel sounds No guarding. no masses palpable. EXTREMITIES: Left upper and bilateral lower extremity edema significantly improved PSYCHIATRY: Alert and oriented -3, mood and affect normal. NERVOUS SYSTEM: Cranial N 2-12 grossly normal. Moves all 4 limbs. Diffuse weakness No focal deficits. - Labs CBC & Chem 7: 06/08/18 20:04 06/07/18 07:18 Labs: Abnormal Lab Results - Last 24 Hours (Table) 06/07/18 Range/Units 07:18 Potassium 3.4 L (3.5-5.1) mmol/L BUN 30 H (9-20) mg/dL Creatinine 1.40 H (0.66-1.25) mg/dL Assessment and Plan Assessment: -Acute on Chronic CHF, systolic dysfunction -Chest pain, possible acute non-STEMI with troponin 0.064 -Abdominal distention with colonic ileus, status post decompression colonoscopy -Chronic persistent atrial fibrillation -.Acute on chronic renal failure, stage III -History of paralytic ileus -Coumadin monitoring -Recent stroke with residual left-sided weakness -CAD, history of CABG -Hyperlipidemia - hypertension -.Hypokalemia Plan: Continue on current medication regime ,monitoring and symptomatic treatment. Follow closely with both cardiology and surgery. Beta dena increased. Continues to diuresing on IV push Lasix as per cardiology. Renal function worsening, close monitoring of renal function with repeat labs ordered for a.m. Increase ambulation as tolerated. The impression and plan of care has been dictated as directed. : I performed a history and examination of this patient, discussed the same with the dictator. I agree with the dictator's note ,documented as a scribe. Any additional findings or plans will be noted.
[2018-06-09] MEDS: METOCLOPRAMIDE 5 MG/ML 2 ML VIAL IVP SCH ×4 (03:24→20:52)
[2018-06-09] MEDS: IPRATROPIUM-ALBUTEROL 3 ML NEB INHALATION SCH ×3 (06:53→20:11)
[2018-06-09 07:31] LABS: Basophils % (A) 0 %; Eosinophils # (A) 0.2 k/uL (0-0.7); Eosinophils % (A) 2 %; HCT 38.5 % (39.0-53.0); HGB 13.1 gm/dL (13.0-17.5); Lymphocytes # (A) 0.8 k/uL (1.0-4.8); Lymphocytes % (A) 8 %; MCH 32.9 pg (25.0-35.0); MCHC 33.9 g/dL (31.0-37.0); Mean Platelet Volume 7.8; Monocytes # (A) 0.8 k/uL (0-1.0); Monocytes % (A) 8 %; Neutrophils # (A) 8.8 k/uL (1.3-7.7); Neutrophils % (A) 81 %; Platelet Count 162 k/uL (150-450); RBC 3.97 m/uL (4.30-5.90); WBC 10.9 k/uL (3.8-10.6)
--- NOTE | 2018-06-09 07:33 | P.PN ---
Subjective Progress Note Date: 06/08/18 The patient still has the catheter He is slow in recouperation from his gi issues, edema and chf I would leave the cath in until he is more ambulatory Objective - Vital Signs Vital signs: Vital Signs Temp 97.7 F 06/09/18 03:30 Pulse 100 06/09/18 07:03 Resp 18 06/09/18 03:32 BP 101/66 06/09/18 03:30 Pulse Ox 96 06/09/18 03:30 Intake & Output 06/08/18 06/09/18 06/09/18 18:59 06:59 18:59 Intake Total 490 10 Output Total 225 200 Balance 265 10 -200 Weight 111.5 kg Intake: IV 10 10 0.9 10 10 Oral 480 Output: Urine 225 200 Other: Voiding Method Indwelling Catheter Indwelling Catheter # Bowel Movements 2 1 - Labs CBC & Chem 7: 06/08/18 20:04 06/07/18 07:18 Labs: Abnormal Lab Results - Last 24 Hours (Table) 06/08/18 Range/Units 20:04 WBC 18.2 H (3.8-10.6) k/uL Neutrophils # 14.8 H (1.3-7.7) k/uL Monocytes # 1.3 H (0-1.0) k/uL
[2018-06-09 07:56] LABS: Potassium 2.9 mmol/L (3.5-5.1)
[2018-06-09 08:39] LABS: Prothrombin Time 67.1 sec (9.0-12.0)
[2018-06-09] MEDS: FUROSEMIDE 10 MG/ML 4 ML VIAL IV SCH (09:03)
[2018-06-09] MEDS: LATANOPROST 0.005% OPHTH DROPS 2.5 ML BTL BOTH EYES SCH (09:04)
[2018-06-09 09:09] LABS: INR 6.9 (<1.2)
[2018-06-09] MEDS ORDERED: PHYTONADIONE ORAL 5 MG/5 ML ORAL.SYRG PO STA (09:23)
[2018-06-09] MEDS: PRAVASTATIN SODIUM 40 MG TAB PO SCH ×2 (09:32→09:33)
[2018-06-09] MEDS: LOSARTAN 25 MG TAB PO SCH (09:32)
[2018-06-09] MEDS: DILTIAZEM ORAL 30 MG TAB PO SCH ×3 (09:33→20:53)
[2018-06-09] MEDS: SPIRONOLACTONE 25 MG TAB PO SCH (09:33)
[2018-06-09] MEDS: METOPROLOL TARTRATE 25 MG TAB PO SCH ×3 (09:33→20:53)
[2018-06-09] MEDS: POTASSIUM CHLORIDE ER 20 MEQ TAB.ER PO SCH ×6 (09:33→14:12)
[2018-06-09] MEDS ORDERED: LIDOCAINE 1% INJ 10MG/ML (20 ML MDV) ONE (10:07)
[2018-06-09] MEDS ORDERED: PROPOFOL 10 MG/ML 20 ML VIAL IV ONE (10:07)
[2018-06-09] MEDS ORDERED: LACTATED RINGERS 1,000 ML IV ONE (10:10)
--- NOTE | 2018-06-09 10:35 | P.OP ---
Date of Procedure: 06/09/18 Preoperative Diagnosis: Colonic ileus Postoperative Diagnosis: Colonic ileus Procedure(s) Performed: Decompressive colonoscopy Anesthesia: MAC Surgeon: Jose Luis Britt Pathology: none sent Condition: stable Disposition: PACU Description of Procedure: Patient's placed on the endoscopy table in the lateral position. He received IV sedation. Digital rectal exam was performed which revealed a large amount of gas and liquid stool exiting the anus. There were internal hemorrhoids. This point a colonoscope was placed patient anus and passed throughout the colon. Scope was positioned into the still transverse colon. At this point the colon was decompressed. A large amount of air was removed from the colon. Scope was withdrawn. There was a polyp seen in the descending colon. This was not biopsied due to the patient's elevated INR. The scope was brought back the rectum this appeared normal. Scope was withdrawn for patient.
[2018-06-09] MEDS: ASPIRIN 81 MG PO SCH (11:14)
[2018-06-09] MEDS: VIT A,C & E-LUTEIN-MINERALS 1 EACH TAB PO SCH (11:15)
[2018-06-09] MEDS: MULTIVITAMINS, THERA 1 EACH TAB PO SCH (12:52)
--- NOTE | 2018-06-09 13:34 | P.PN ---
Subjective Progress Note Date: 06/09/18 This is an 83-year-old gentleman who presented to the hospital with symptoms of 3 day duration of shortness of breath, significant edema, mild abdominal discomfort. He has a known history of coronary artery disease and prior bypass surgery as well as stent placement, history of right carotid endarterectomy, hyperlipidemia, hypertension chronic persistent atrial fibrillation. Patient has been receiving diuretics for congestive cardiac failure, echocardiogram with Doppler study has been requested which is still pending. Blood pressure this morning 120/80, heart rate 90, 97% on 2 L of oxygen. Patient states he is barely moving his bowels, it is only like water, he had a KUB performed which showed a dilated large bowel consistent with generalized ileus and a surgical consultation has been requested. At the time of my examination this morning, patient states he just feels awful, he is uncomfortable in his abdomen, continues to have significant peripheral edema. He needs to be on Lasix 40 mg every 12 hourly. His INR today is 3.3. Sodium 138, potassium 4.3, BUN 31, creatinine 1.3. 06/01/2018 Patient was seen and examined this morning, continues to be on a Cardizem drip at 5 mg per hour. We will continue this for the next couple of days. Patient is scheduled today to undergo colonoscopy by Dr. Carlisle. He is sitting up in the chair today, and does state that he feels better overall. Continues to have significantly firm abdomen. Blood pressure 128/80 with a heart rate in the 80s, 96% on 2 L of oxygen. White blood cell count 10.1, hemoglobin 13.6, platelet count 198. INR 2.9. Sodium 140, potassium 3.2, BUN 31, creatinine 1.2. Magnesium 1.9. 06/02/2018 Patient was seen and examined this morning, he underwent a colonoscopy with decompression of transverse colon distention yesterday today he is noted to be sitting up in the chair tolerating a diet. Overall feeling better, abdomen much less firm today, he is passing flatus. Blood pressure 104/70 with a heart rate in the 80s. White blood cell count 9.5, hemoglobin 13.2, platelet count 153. INR 2.4, potassium 3.3 today which is being replaced. BUN 27 and creatinine 1.7. 06/03/2018 patient was seen and examined this morning, started having some more distention in his abdomen again today. He was seen by Dr. Shell who instructed the patient to be on liquids only. Hemodynamically he remained stable. INR 1.7, we'll continue with the Coumadin. 06/04/2018 Patient seen and examined this morning, abdomen remained firm today. Heart rate in the low 90s. INR is pending. 06/05/2018 Patient was seen and examined this morning, overall he is feeling better, starting to pass more flatus. Heart rate is up in the 1 teens to 120s today. Continues to diurese well overall. 06/06/2018 Patient was seen and examined this morning, overall he does state he is feeling better, he is passing small amount of BM, states that it's very watery. Not much gas movement in the belly. His heart rate this morning was documented to be up in the 1 teens however he had not yet received his beta dena. He denies any palpitations, breathing has been stable. 06/07/2018 Patient was seen and examined this morning, heart rate in the 120 range today. We will increase his dose of beta dena to 75 mg 3 times a day. Denies any palpitations, no chest discomfort, 06/08/2018 Patient seen and examined this morning, he is passing some flatus and having small bowel movements but remains significantly distended and firm. He did have a repeat 3 of the abdomen which revealed distended loops of colon similar to prior exam, correlate to exclude obstruction. Findings could represent ileus there is no pneumoperitoneum. Heart rate this morning is remaining in the 1 teens to 120 range. We will add a small dose of Cardizem to his medication regime. 06/09/2018 Patient seen and examined this morning, patient underwent a decompressive colonoscopy this morning. His belly is definitely softer, heart rate this morning is also controlled. Blood pressure 100/50, heart rate in the 70s, 95% on room air. White blood cell count 10.9, hemoglobin 13.1, platelet count 162. INR this morning 6.9, Coumadin has been placed on hold and patient did received 10 mg dose of vitamin K. Potassium this morning is 2.9 which is being replaced per protocol, BUN 38, creatinine 1.9 and magnesium 1.7. IV Lasix will be discontinued today and patient will be started on oral diuretics. Objective - Vital Signs Vital signs: Vital Signs Temp 97.6 F 06/09/18 08:30 Pulse 118 H 06/09/18 08:30 Resp 18 06/09/18 08:30 BP 100/56 06/09/18 08:30 Pulse Ox 95 06/09/18 08:30 Intake & Output 06/08/18 06/09/18 06/09/18 18:59 06:59 18:59 Intake Total 490 10 150 Output Total 225 200 Balance 265 10 -50 Weight 111.5 kg Intake: IV 10 10 150 0.9 10 10 Oral 480 Output: Urine 225 200 Other: Voiding Method Indwelling Catheter Indwelling Catheter Indwelling Catheter # Bowel Movements 2 1 - Exam PHYSICAL EXAMINATION: GENERAL: 43-year-old gentleman in no acute distress at the time of my examination HEENT: Head is atraumatic, normocephalic. Pupils equal, round. Sclera anicteric. Conjunctiva are clear. Mucous membranes of the mouth are moist. Neck is supple. There is elevated jugular venous pressure. No carotid bruit is heard. HEART EXAMINATION: Heart S1, S2 irregularly irregular . No murmur or gallop heard. CHEST EXAMINATION: Lungs reveal diminished air entry to bilateral bases. ABDOMEN: soft, mildly distended, positive bowel sounds . EXTREMITIES: 2+ peripheral pulses with no evidence of peripheral edema and no calf tenderness noted. NEUROLOGIC patient is awake, alert and oriented X3. . - Labs CBC & Chem 7: 06/09/18 06:41 06/09/18 06:41 Labs: Abnormal Lab Results - Last 24 Hours (Table) 06/08/18 06/09/18 06/09/18 Range/Units 20:04 06:41 06:41 WBC 18.2 H 10.9 H (3.8-10.6) k/uL RBC 3.97 L (4.30-5.90) m/uL Hct 38.5 L (39.0-53.0) % Neutrophils # 14.8 H 8.8 H (1.3-7.7) k/uL Lymphocytes # 0.8 L (1.0-4.8) k/uL Monocytes # 1.3 H (0-1.0) k/uL PT (9.0-12.0) sec INR (<1.2) Potassium 2.9 L (3.5-5.1) mmol/L BUN 38 H (9-20) mg/dL Creatinine 1.96 H (0.66-1.25) mg/dL Glucose 101 H (74-99) mg/dL 06/09/18 Range/Units 06:41 WBC (3.8-10.6) k/uL RBC (4.30-5.90) m/uL Hct (39.0-53.0) % Neutrophils # (1.3-7.7) k/uL Lymphocytes # (1.0-4.8) k/uL Monocytes # (0-1.0) k/uL PT 67.1 H (9.0-12.0) sec INR 6.9 H* (<1.2) Potassium (3.5-5.1) mmol/L BUN (9-20) mg/dL Creatinine (0.66-1.25) mg/dL Glucose (74-99) mg/dL Assessment and Plan Plan: Assessment and plan #1 congestive heart failure, LV function unknown, echo remains pending. #2 chronic persistent atrial fibrillation, rate under better control today., Anticoagulated. INR 6.9 #3 known history of coronary artery disease with prior bypass surgery and stent placements #4 abdominal pain and distention with evidence of possible ileus #5 hypertension #6 hyperlipidemia Plan We will discontinue IV Lasix and start the patient on oral diuretics today. Hold the Coumadin, patient received 10 mg of by mouth vitamin K, check PT/INR in the morning as well as lytes BUN and creatinine. Heart rate is remaining stable. DNP note has been reviewed, I agree with a documented findings and plan of care. Patient was seen and examined.
[2018-06-09] MEDS ORDERED: Magnesium Replacement Protocol 1 EACH MISC MISCELLANE PRN (16:30)
[2018-06-09] MEDS: FUROSEMIDE 40 MG TAB PO SCH (17:29)
[2018-06-09] MEDS: MAGNESIUM SULFATE-D5W PMX 1 GM in DEXTROSE/WATER 1 100ML.BAG IVPB SCH ×2 (18:42→20:11)
--- NOTE | 2018-06-09 22:03 | P.PN ---
Subjective Progress Note Date: 06/08/18 Progress note being dictated for Dr. Leiva. Interval history: Is as an 83-year-old gentleman admitted with acute CHF exacerbation, chest pain, possible acute non-STEMI, abdominal distention with colonic ileus, acute on chronic renal failure and multiple other medical issues. Telemetry reporting atrial fibrillation, rate better controlled. Maintained on Cardizem drip. INR 3.3. Diuresing well on Lasix IV push with 24- hour I&O reflecting a negative fluid balance. Significant edema of left upper and bilateral lower extremities, Dopplers ordered.Echo suboptimal, reporting moderately severe impaired LV function, EF between 30 and 35% lateral and apical hypokinesis, mild to moderate mitral regurgitation aortic root borderline dilated up to 3.8 cm. , significantly distended abdomen, ileus. Evaluated by surgery with barium enema recommended . Denies chest pain, palpitations. Creatinine 1.35. 05/31/2018 , Short of breath at rest. Left arm negative for DVT, bilateral lower extremities negative for DVT, with some subcutaneous edema in the popliteal regions. Barium enema reported. No abdominal narrowing, severely distended colon, marketed air distention with no evidence of obstruction or volvulus, severe colonic ileus. Passing minimal flatus, two small bowel movements. Abdominal x-ray reporting extensive large bowel gas consistent with generalized ileus, no free air, no change. Surgery recommending colonoscopy for decompression, tomorrow. A. fib with paroximal rapid ventricular rate .Continues on Cardizem drip. Diuresing on Lasix IV. Creatinine improving, 1.25. Potassium 3.4, receiving supplementation. Coumadin held, INR 3.2. 06/01/2018. Maintained on Cardizem drip, atrial fibrillation, controlled currently. Potassium 3.2, receiving supplementation. INR 2.9, scheduled for decompression colonoscopy today as recommended by surgery.NPO. Creatinine 1.28. Denies chest pain, palpitations. 06/02/2018 underwent decompression colonoscopy yesterday, tolerated well. Sitting up in chair, abdomen mildly softer, still firm. Passing flatus. Tolerating oral diet with no nausea vomiting or diarrhea. Denies abdominal pain. Continues on Cardizem drip, IV Lasix.diuresing well with 24-hour I&O reflecting a negative fluid balance. Receiving potassium supplements with potassium up to 3.3. Inr 2.4. 06/03/2018 abdomen remains firm, distended. Denies abdominal pain. No flatus, no bowel movement. Diet backed down to clears. Minimal burping. Renal function worsening, creatinine 1.36. INR 1.7. 06/07/2018 tolerated clear liquids, loose bowel movements. Maintained on Lasix IV push. Creatinine trending up. Telemetry atrial fibrillation with heart rates in the 120s. Denies any chest pain, palpitations. 06/08/2018 Abdomen distended, firm. tolerating clear liquid diet with no nausea vomiting. loose Bowel movements. Abdominal x-ray of yesterday, reporting distended loops of colon similar to prior exam, correlate to exclude obstruction, possible ileus, no pneumoperitoneum. Telemetry atrial fibrillation with heart rates up into the 120s. Cardizem added to medication regime as per cardiology .Ambulating in hallway with significant other. Electrolytes are being supplemented as per replacement protocol. Afebrile, elevated WBC. Objective - Vital Signs Vital signs: Vital Signs Temp 96.1 F L 06/08/18 16:00 Pulse 120 H 06/08/18 16:00 Resp 20 06/08/18 16:00 BP 109/62 06/08/18 16:00 Pulse Ox 98 06/08/18 16:00 Intake & Output 06/08/18 06/08/18 06/09/18 06:59 18:59 06:59 Intake Total 490 Output Total 1800 225 Balance -1800 265 Weight 113 kg Intake: IV 10 0.9 10 Oral 480 Output: Urine 800 225 Stool 1000 Other: Voiding Method Indwelling Catheter Indwelling Catheter # Voids 1 # Bowel Movements 1 2 - Exam PHYSICAL EXAM: VITAL SIGNS: As above GENERAL: Sitting up in chair, no acute distress, HEENT: Conjunctivae normal. eyes normal. Oral mucosa moist NECK: Positive JVD. No thyroid enlargement. No LNs CARDIOVASCULAR: S1, S2 muffled. Irregular, tachycardic, No murmur RESPIRATION: Breath sounds diminished in the bases. No rhonchi, fine bibasilar crackles ABDOMEN: Firm, distended, nontender.Hypoactive bowel sounds No guarding. no masses palpable. EXTREMITIES: No edema, positive pulses PSYCHIATRY: Alert and oriented -3, mood and affect normal. NERVOUS SYSTEM: Cranial N 2-12 grossly normal. Moves all 4 limbs. Diffuse weakness No focal deficits. - Labs CBC & Chem 7: 06/09/18 06:41 06/09/18 17:09 Labs: Abnormal Lab Results - Last 24 Hours (Table) 06/08/18 Range/Units 20:04 WBC 18.2 H (3.8-10.6) k/uL Neutrophils # 14.8 H (1.3-7.7) k/uL Monocytes # 1.3 H (0-1.0) k/uL Assessment and Plan Assessment: -Acute on Chronic CHF, systolic dysfunction -Chest pain, possible acute non-STEMI with troponin 0.064 -Abdominal distention with colonic ileus, status post decompression colonoscopy -Chronic persistent atrial fibrillation -.Acute on chronic renal failure, stage III -History of paralytic ileus -Coumadin monitoring -Recent stroke with residual left-sided weakness -CAD, history of CABG -Hyperlipidemia - hypertension -.Hypokalemia -Hypomagnesemia Plan: Continue on current medication regime ,monitoring and symptomatic treatment. Discussed with RN, supplements to be scheduled between meals, aggressive pulmonary toileting with incentive spirometer ordered ordered, PT/ INR ordered. Diuretics as per cardiology, renal function continues to worsen, possibly hold or convert to oral. Repeat labs ordered for a.m. Mag and potassium to be supplemented as per replacement protocol. Scheduled for repeat decompression colonoscopy in a.m. The impression and plan of care has been dictated as directed. : I performed a history and examination of this patient, discussed the same with the dictator. I agree with the dictator's note ,documented as a scribe. Any additional findings or plans will be noted.
--- NOTE | 2018-06-09 22:14 | P.PN ---
Subjective Progress Note Date: 06/09/18 Progress note being dictated for Dr. Leiva. Interval history: Is as an 83-year-old gentleman admitted with acute CHF exacerbation, chest pain, possible acute non-STEMI, abdominal distention with colonic ileus, acute on chronic renal failure and multiple other medical issues. Telemetry reporting atrial fibrillation, rate better controlled. Maintained on Cardizem drip. INR 3.3. Diuresing well on Lasix IV push with 24- hour I&O reflecting a negative fluid balance. Significant edema of left upper and bilateral lower extremities, Dopplers ordered.Echo suboptimal, reporting moderately severe impaired LV function, EF between 30 and 35% lateral and apical hypokinesis, mild to moderate mitral regurgitation aortic root borderline dilated up to 3.8 cm. , significantly distended abdomen, ileus. Evaluated by surgery with barium enema recommended . Denies chest pain, palpitations. Creatinine 1.35. 05/31/2018 , Short of breath at rest. Left arm negative for DVT, bilateral lower extremities negative for DVT, with some subcutaneous edema in the popliteal regions. Barium enema reported. No abdominal narrowing, severely distended colon, marketed air distention with no evidence of obstruction or volvulus, severe colonic ileus. Passing minimal flatus, two small bowel movements. Abdominal x-ray reporting extensive large bowel gas consistent with generalized ileus, no free air, no change. Surgery recommending colonoscopy for decompression, tomorrow. A. fib with paroximal rapid ventricular rate .Continues on Cardizem drip. Diuresing on Lasix IV. Creatinine improving, 1.25. Potassium 3.4, receiving supplementation. Coumadin held, INR 3.2. 06/01/2018. Maintained on Cardizem drip, atrial fibrillation, controlled currently. Potassium 3.2, receiving supplementation. INR 2.9, scheduled for decompression colonoscopy today as recommended by surgery.NPO. Creatinine 1.28. Denies chest pain, palpitations. 06/02/2018 underwent decompression colonoscopy yesterday, tolerated well. Sitting up in chair, abdomen mildly softer, still firm. Passing flatus. Tolerating oral diet with no nausea vomiting or diarrhea. Denies abdominal pain. Continues on Cardizem drip, IV Lasix.diuresing well with 24-hour I&O reflecting a negative fluid balance. Receiving potassium supplements with potassium up to 3.3. Inr 2.4. 06/03/2018 abdomen remains firm, distended. Denies abdominal pain. No flatus, no bowel movement. Diet backed down to clears. Minimal burping. Renal function worsening, creatinine 1.36. INR 1.7. 06/07/2018 tolerated clear liquids, loose bowel movements. Maintained on Lasix IV push. Creatinine trending up. Telemetry atrial fibrillation with heart rates in the 120s. Denies any chest pain, palpitations. 06/08/2018 Abdomen distended, firm. tolerating clear liquid diet with no nausea vomiting. loose Bowel movements. Abdominal x-ray of yesterday, reporting distended loops of colon similar to prior exam, correlate to exclude obstruction, possible ileus, no pneumoperitoneum. Telemetry atrial fibrillation with heart rates up into the 120s. Cardizem added to medication regime as per cardiology .Ambulating in hallway with significant other. Electrolytes are being supplemented as per replacement protocol. Afebrile, elevated WBC. 06/09/2018 S/P repeat decompression colonoscopy this morning, abdomen softer. INR 6.9, vitamin K administered. Receiving potassium and magnesium supplements , potassium 2.9, magnesium 1.7. Creatinine 1.96, Lasix converted to oral. WBC 10.9. Afebrile. Objective - Vital Signs Vital signs: Vital Signs Temp 97.6 F 06/09/18 20:00 Pulse 98 06/09/18 20:00 Resp 18 06/09/18 20:00 BP 99/65 06/09/18 20:00 Pulse Ox 98 06/09/18 20:00 Intake & Output 06/09/18 06/09/18 06/10/18 06:59 18:59 06:59 Intake Total 10 510 Output Total 425 Balance 10 85 Weight 111.5 kg Intake: IV 10 150 0.9 10 Oral 360 Output: Urine 425 Other: Voiding Method Indwelling Catheter Indwelling Catheter Indwelling Catheter # Bowel Movements 1 1 - Exam PHYSICAL EXAM: VITAL SIGNS: As above GENERAL: Sitting up in chair, no acute distress, HEENT: Conjunctivae normal. eyes normal. Oral mucosa moist NECK: No JVD. No thyroid enlargement. No LNs CARDIOVASCULAR: S1, S2 muffled. Irregular, tachycardic, No murmur RESPIRATION: Breath sounds diminished in the bases. No rhonchi ABDOMEN: Distended, softer, nontender.Hypoactive bowel sounds No guarding. no masses palpable. EXTREMITIES: No edema, positive pulses PSYCHIATRY: Alert and oriented -3, mood and affect normal. NERVOUS SYSTEM: Cranial N 2-12 grossly normal. Moves all 4 limbs. Diffuse weakness No focal deficits. - Labs CBC & Chem 7: 06/09/18 06:41 06/09/18 17:09 Labs: Abnormal Lab Results - Last 24 Hours (Table) 06/09/18 06/09/18 06/09/18 Range/Units 06:41 06:41 06:41 WBC 10.9 H (3.8-10.6) k/uL RBC 3.97 L (4.30-5.90) m/uL Hct 38.5 L (39.0-53.0) % Neutrophils # 8.8 H (1.3-7.7) k/uL Lymphocytes # 0.8 L (1.0-4.8) k/uL PT 67.1 H (9.0-12.0) sec INR 6.9 H* (<1.2) Potassium 2.9 L (3.5-5.1) mmol/L BUN 38 H (9-20) mg/dL Creatinine 1.96 H (0.66-1.25) mg/dL Glucose 101 H (74-99) mg/dL Assessment and Plan Assessment: -Acute on Chronic CHF, systolic dysfunction -Chest pain, possible acute non-STEMI with troponin 0.064 -Abdominal distention with colonic ileus, status post decompression colonoscopy 2 -Chronic persistent atrial fibrillation -.Acute on chronic renal failure, stage III -History of paralytic ileus -Coumadin monitoring -Recent stroke with residual left-sided weakness -CAD, history of CABG -Hyperlipidemia - hypertension -.Hypokalemia -Hypomagnesemia -Hypercoagulopathy Plan: Continue on current medication regime ,monitoring and symptomatic treatment.Daily PT/INRs. Coumadin on hold. Lasix converted to oral, worsening renal function, nephrology consulted. Regarding functional obstruction, slow improvement, GI consulted.PT/OT. Potassium and magnesium being supplemented. Close monitoring of renal function, electrolytes with repeat labs ordered for a.m. plan of care discussed at bedside with patient and . prognosis guarded given multiple complex medical issues. The impression and plan of care has been dictated as directed. : I performed a history and examination of this patient, discussed the same with the dictator. I agree with the dictator's note ,documented as a scribe. Any additional findings or plans will be noted.
[2018-06-10] MEDS: METOCLOPRAMIDE 5 MG/ML 2 ML VIAL IVP SCH ×4 (03:06→20:59)
[2018-06-10 03:59] LABS: Basophils % (A) 0 %; Eosinophils # (A) 0.3 k/uL (0-0.7); Eosinophils % (A) 4 %; HCT 40.2 % (39.0-53.0); HGB 13.5 gm/dL (13.0-17.5); Lymphocytes # (A) 0.9 k/uL (1.0-4.8); Lymphocytes % (A) 11 %; MCHC 33.5 g/dL (31.0-37.0); MCV 98.5 fL (80.0-100.0); Mean Platelet Volume 7.5; Monocytes # (A) 0.8 k/uL (0-1.0); Monocytes % (A) 9 %; Neutrophils # (A) 6.6 k/uL (1.3-7.7); Neutrophils % (A) 74 %; Platelet Count 161 k/uL (150-450); RBC 4.08 m/uL (4.30-5.90); RDW 14.1 % (11.5-15.5); WBC 8.9 k/uL (3.8-10.6)
[2018-06-10 04:09] LABS: Magnesium 2.2 mg/dL (1.6-2.3); Potassium 3.3 mmol/L (3.5-5.1)
[2018-06-10 04:40] LABS: INR 2.9 (<1.2); Prothrombin Time 27.6 sec (9.0-12.0)
[2018-06-10] MEDS: POTASSIUM CHLORIDE ER 20 MEQ TAB.ER PO SCH ×3 (04:46→08:50)
[2018-06-10] MEDS: IPRATROPIUM-ALBUTEROL 3 ML NEB INHALATION SCH ×3 (06:53→21:45)
[2018-06-10] MEDS: VIT A,C & E-LUTEIN-MINERALS 1 EACH TAB PO SCH (08:45)
[2018-06-10] MEDS: SPIRONOLACTONE 25 MG TAB PO SCH (08:46)
[2018-06-10] MEDS: FUROSEMIDE 40 MG TAB PO SCH ×2 (08:46→17:01)
[2018-06-10] MEDS: LATANOPROST 0.005% OPHTH DROPS 2.5 ML BTL BOTH EYES SCH (08:46)
[2018-06-10] MEDS: DILTIAZEM ORAL 30 MG TAB PO SCH ×3 (08:46→20:59)
[2018-06-10] MEDS: ASPIRIN 81 MG PO SCH (08:46)
[2018-06-10] MEDS: METOPROLOL TARTRATE 25 MG TAB PO SCH ×3 (08:46→20:59)
[2018-06-10] MEDS: PRAVASTATIN SODIUM 40 MG TAB PO SCH (08:51)
--- NOTE | 2018-06-10 11:32 | PN ---
PROGRESS NOTE Mr. Campoverde is an 83-year-old gentleman who is admitted to hospital with ileus and abdominal distention that Cardiology is following because of atrial fibrillation with poorly controlled ventricular rate. The patient is currently on Cardizem 30 t.i.d., Lopressor 75 t.i.d., and this morning, patient is still becoming tachycardic with activity, has abdominal distention that has worsened from yesterday. The patient's INR is 2.9 today and his INR became elevated yesterday and the Coumadin was held and he received vitamin K. ASSESSMENT: 1. Chronic atrial fibrillation. 2. Ileus with abdominal distention. 3. Prerenal azotemia. 4. Coagulopathy. PLAN: I will continue to hold the Coumadin. Continue current medications including Cardizem and Lopressor. MMODL / IJN: [id number] /
--- NOTE | 2018-06-10 12:14 | CONS ---
CONSULTATION REASON FOR CONSULT: Renal failure. HISTORY OF PRESENT ILLNESS: The patient is an 83-year-old male who was admitted to the hospital with increased lower extremity edema, fluid overload, abdominal distention. He has been diuresed and is doing better. The patient also had ileus and had a decompressive colonoscopy done yesterday. The patient was seen by Urology during this admission for urine retention and previous history of prostatic cancer. He currently has an indwelling Littlejohn catheter and has had good urine output. Serum creatinine was 1.1 on 06/02/2017. It did go up to 1.4 on 06/07/2017 and it is up to 1.9 today as well as yesterday. The patient's blood pressure has been on the lower side with systolic around 101 and as low as 89 mmHg yesterday. The patient is maintained on angiotensin receptor blockers. There is no history of use of IV contrast recently. A CT done on 05/29 was without contrast. There are plans for possible discharge today. The patient is maintained on oral Lasix 40 mg b.i.d. PAST MEDICAL HISTORY: Significant for coronary artery disease, heart failure, history of MT, osteoarthritis, hyperlipidemia, CVA/TIA, prostatic cancer. PAST SURGICAL HISTORY: Appendectomy, back surgery, coronary artery bypass surgery, cardiac catheterization, multiple coronary stents, hemorrhoidectomy, carotid endarterectomy. SOCIAL HISTORY: Social history is negative for smoking or drug abuse. Patient is a former smoker. MEDICATIONS: Medications prior to admission included Lasix, aspirin, Pravachol, Lopressor, Nitrostat, Aldactone, Imdur, Cozaar, potassium, Coumadin. ALLERGIES: Allergies include SULFA, MORPHINE. REVIEW OF SYSTEMS: As per HPI. Other systems negative. PHYSICAL EXAMINATION: On examination, patient is comfortable. He is not in any acute distress. He is complaining of abdominal distention. Blood pressure was 103/57, heart rate 105 per minute. He is afebrile. EXAMINATION OF THE HEART: S1, S2. EXAMINATION OF THE LUNGS: Bilateral breath sounds are heard. Abdomen is soft, nontender. Examination of the lower extremities shows edema 2+ bilaterally. [employer] ASSIST[employer] exam is grossly intact. Abdomen is distended, but nontender. LABS: Labs show sodium 137, potassium 3.3, chloride 107, BUN 43, serum creatinine 1.96, hemoglobin 13.5 g/dL. ASSESSMENT: 1. Acute kidney injury associated with hypotension hypoperfusion and recent diuresis. I will discontinue the Cozaar. We can continue with the oral Lasix. The patient could be discharged, but he will need labs to be done as outpatient in about 2 to 3 days time. He should follow up as outpatient as well for chronic kidney disease and acute kidney injury. 2. Hypokalemia associated with diuresis, status post replacement. 3. Volume overload, currently improving. 4. Ileus, status post decompressive colonoscopy. 5. History of prostatic cancer. 6. Urine retention. 7. Cardiomyopathy, ejection fraction 30% to 35%. 8. Congestive heart failure, acute on top of chronic, mainly systolic, currently improved. PLAN: Discontinue Cozaar, may continue with Lasix. Monitor blood pressure at home. Avoid hypotension. Consider decreasing dose of Cardizem as long as heart rate remains controlled. Thank you for this consultation. We will continue to follow the patient with you during his hospitalization. MMODL / IJN: [id number] /
--- NOTE | 2018-06-10 12:57 | P.CONS ---
History of Present Illness - Reason for Consult Consult date: 06/10/18 Functional obstruction Requesting physician: David Beavers - Chief Complaint Shortness of breath - History of Present Illness 83-year-old male admitted 05/28/2018 with shortness of breath with a past medical history of colonic ileus, atrial fibrillation, obesity, abdominal distention. Patient has undergone multiple radiographic imaging studies including barium enema over the past few months as well as screening colonoscopy that identified moderate distended transverse colon including the proximal descending colon status post decompression on 06/01/2018. Admission CT abdomen bilateral pleural effusions cardiomegaly mildly distended large bowel. General surgery was consulted and has been following the patient. 05/30/2018 barium enema severely distended colon transverse measured up to 14.1 cm and hepatic flexure dilated up to 11.1 cm. No evidence of obstruction or volvulus. Severe colonic ileus or [place] syndrome considered. 06/07/2018 abdominal films so reported distended loops of colon similar to prior exam without pneumoperitoneum. Patient underwent decompressive colonoscopy last night with general surgery. White count 8.9. Hemoglobin 13.5. INR 2.9. BUN 43. K+ 3.3. Creatinine 1.9. Passing bowel movements. No bleeding. Review of Systems Constitutional: Denies fever, chills, sweats, weight gain, or loss. HEENT: Negative for migraines, blurred vision or loss, earaches, drainage, tinnitus, oral mucosal lesions, dysphagia, or odynophagia. Cardiac: Negative for chest pain, history of A. fib arrhythmias, denies palpitation. Respiratory: Admitted with shortness of breath, denies hemoptysis, cough, or sputum production. Gastrointestinal: See HPI for pertinent findings. Genitourinary: Negative for hematuria, urgency, frequency, polyuria, dysuria, or penile discharge. Musculoskeletal: Negative for muscle aches, swelling, arthritis, and arthralgias. Neurologic: Negative for stroke or TIA. Endocrine: Negative for thyroid problems. Skin: Negative for rash or itching. Psychiatric: Negative history for depression and anxiety Past Medical History Past Medical History: Coronary Artery Disease (CAD), Cancer, Chest Pain / Angina , Heart Failure, CVA/TIA, Eye Disorder, Hyperlipidemia, Hypertension, Myocardial Infarction (CT), Osteoarthritis (OA) Additional Past Medical History / Comment(s): several TIA, CT's-at least 5, prostate cancer being monitored-recent PSA was significantly, stoke 12/2015- left side -gait "is off" diff with balance and moving leg, left arm diff with fine motor skills and numberness left arm. can not walk far distance, change in bowel patterns Last Myocardial Infarction Date:: 2001 History of Any Multi-Drug Resistant Organisms: None Reported Past Surgical History: Appendectomy, Back Surgery, Coronary Bypass/CABG, Heart Catheterization With Stent Additional Past Surgical History / Comment(s): 10 PLUS STENTS, 1988 CABG with 3 vessel bypass, hemorrhoidectomy, multiple back surgeries, back epidural injections, L eye laser sx due to "something burst in that eye", rt carotid endarterectomy Past Anesthesia/Blood Transfusion Reactions: No Reported Reaction Date of Last Stent Placement:: 2008 Past Psychological History: Anxiety, Depression Additional Psychological History / Comment(s): . 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 1 ppd. Past Drug Use History: None Reported - Past Family History Father Family Medical History: Myocardial Infarction (CT) Additional Family Medical History / Comment(s): Father of a CT in his 40' s. Pt's grandfather on his dad's side in his 40's of a CT Mother Family Medical History: Coronary Artery Disease (CAD) Additional Family Medical History / Comment(s): Mother lived into her 90's. Sister(s) Family Medical History: Cancer Medications and Allergies Home Medications Medication Instructions Recorded Confirmed Type Aspirin EC [Ecotrin Low Dose] 81 mg PO DAILY 01/15/16 05/28/18 History Furosemide [Lasix] 40 mg PO DAILY 01/15/16 05/28/18 History Pravastatin Sodium [Pravachol] 40 mg PO DAILY 01/15/16 05/28/18 History Meclizine [Antivert] 25 mg PO TID PRN #0 tab 01/16/16 05/28/18 Rx Metoprolol Tartrate [Lopressor] 50 mg PO DAILY 02/08/17 05/28/18 History Nitroglycerin Sl Tabs [Nitrostat] 0.4 mg SUBLINGUAL Q5M PRN 02/08/17 05/28/18 History Spironolactone [Aldactone] 25 mg PO DAILY 02/08/17 05/28/18 History Isosorbide Mononitrate ER [Imdur] 60 mg PO DAILY 05/28/18 05/28/18 History Losartan [Cozaar] 25 mg PO DAILY 05/28/18 05/28/18 History Multivitamins, Thera [Multivitamin 1 tab PO DAILY 05/28/18 05/28/18 History (formulary)] Potassium Chloride ER [K-Dur 20] 20 meq PO DAILY 05/28/18 05/28/18 History Travoprost [Travatan Z 0.004%] 1 drop BOTH EYES DAILY 05/28/18 05/28/18 History Vit C/E/Zn/Coppr/Lutein/Zeaxan 1 cap PO DAILY 05/28/18 05/28/18 History [Preservision Areds 2 Softgel] Warfarin [Coumadin] 7.5 mg PO DAILY 05/28/18 05/28/18 History Allergies Allergy/AdvReac Type Severity Reaction Status Date / Time morphine Allergy Anaphylaxis Verified 05/28/18 16:36 Sulfa (Sulfonamide Allergy Anaphylaxis Verified 05/28/18 16:36 Antibiotics) Physical Exam Vitals: Vital Signs Temp Pulse Pulse Resp BP BP Pulse Ox 06/10/18 08:00 97.5 F L 105 H 16 103/57 96 06/10/18 07:01 94 06/10/18 06:54 98 06/10/18 03:58 97.0 F L 104 H 18 101/58 97 06/10/18 03:56 70 18 06/09/18 23:30 97.2 F L 70 18 89/54 96 06/09/18 23:28 98 18 06/09/18 20:00 97.6 F 98 18 99/65 98 06/09/18 18:30 122 H 91/62 06/09/18 16:00 98.8 F 113 H 19 93/58 95 06/09/18 12:00 79 18 96/67 99 Intake and Output 06/09/18 06/10/18 06/10/18 22:59 06:59 14:59 Intake Total 360 358 Output Total 225 200 Balance 135 -200 358 Intake: Oral 360 358 Output: Urine 225 200 Other: Voiding Method Indwelling Catheter Indwelling Catheter # Bowel Movements 1 Weight 111.8 kg General appearance: The patient is alert, oriented, in no acute distress. HET: Head is normocephalic and atraumatic. Pupils are equal and reactive. Oropharynx is clear without lesions. Neck: Supple without lymphadenopathy. Trachea midline. Heart: S1 S2. Regular rate and rhythm. Lungs: No crackles or wheezes are heard. Abdomen: Soft, distended tympanic bowel sounds. No peritoneal signs. No palpable organomegaly or masses. Extremities: +3 BLE edema. Neurological: No focal deficits. Strength and sensation are grossly intact. Results CBC & Chem 7: 06/10/18 03:40 06/10/18 03:40 Labs: Abnormal Lab Results - Last 24 Hours (Table) 06/10/18 06/10/18 06/10/18 Range/Units 03:40 03:40 03:40 RBC 4.08 L (4.30-5.90) m/uL Lymphocytes # 0.9 L (1.0-4.8) k/uL PT 27.6 H (9.0-12.0) sec INR 2.9 H (<1.2) Potassium 3.3 L (3.5-5.1) mmol/L Carbon Dioxide 20 L (22-30) mmol/L BUN 43 H (9-20) mg/dL Creatinine 1.96 H (0.66-1.25) mg/dL Glucose 107 H (74-99) mg/dL CT scan - abdomen: report reviewed (Dr. Seymour) Assessment and Plan (1) Colon distention Narrative/Plan: History of colonic pseudoobstruction. Suspect [place] syndrome etiology unclear. Current Visit: Yes Status: Acute Code(s): K63.89 - OTHER SPECIFIED DISEASES OF INTESTINE SNOMED Code(s): 331377304 (2) Congestive heart failure Current Visit: Yes Status: Acute Code(s): I50.9 - HEART FAILURE, UNSPECIFIED SNOMED Code(s): 10282814 (3) CAD (coronary artery disease) Current Visit: Yes Status: Acute Code(s): I25.10 - ATHSCL HEART DISEASE OF [place] CORONARY ARTERY W/O ANG PCTRS SNOMED Code(s): 87886926 (4) Warfarin-induced coagulopathy Current Visit: Yes Status: Acute Code(s): D68.32 - HEMORRHAGIC DISORD D/T EXTRINSIC CIRCULATING ANTICOAGULANTS; T45.515A - ADVERSE EFFECT OF ANTICOAGULANTS, INITIAL ENCOUNTER SNOMED Code(s): 14314232 (5) Hypokalemia Current Visit: Yes Status: Acute Code(s): E87.6 - HYPOKALEMIA SNOMED Code( s): 67578176 Plan: 1. Electrolyte monitoring; maintain in therapeutic range. Meds reviewed. GS following. Observe overnight if stable DC tomorrow. Follow up with GS as advised. Patient and spouse understanding risk of perforation. Surgical options discussed with patient spouse by Dr. Britt if colonic distention worsens. No further workup from a GI standpoint at this time. Thank you for this kind referral and the opportunity to participate in the care of your patient. This consultation was discussed with Dr. Seymour. The impression and plan of care have been directed as dictated.
[2018-06-10] MEDS: MULTIVITAMINS, THERA 1 EACH TAB PO SCH (13:10)
--- NOTE | 2018-06-10 15:23 | P.PN ---
Progress Note - Text Progress Note Date: 06/10/18 The patient came have bowel movements. He wants to go home. On exam his vital signs are stable. His abdomen is soft. There is less distention than yesterday. Colonic ileus with pseudoobstruction this is slowly improving. Patient will be discharged home per medicine. He'll follow-up in the office next week.
--- NOTE | 2018-06-10 21:24 | P.PN ---
Subjective Progress Note Date: 06/10/18 Progress note being dictated for Dr. Leiva. Interval history: Is as an 83-year-old gentleman admitted with acute CHF exacerbation, chest pain, possible acute non-STEMI, abdominal distention with colonic ileus, acute on chronic renal failure and multiple other medical issues. Telemetry reporting atrial fibrillation, rate better controlled. Maintained on Cardizem drip. INR 3.3. Diuresing well on Lasix IV push with 24- hour I&O reflecting a negative fluid balance. Significant edema of left upper and bilateral lower extremities, Dopplers ordered.Echo suboptimal, reporting moderately severe impaired LV function, EF between 30 and 35% lateral and apical hypokinesis, mild to moderate mitral regurgitation aortic root borderline dilated up to 3.8 cm. , significantly distended abdomen, ileus. Evaluated by surgery with barium enema recommended . Denies chest pain, palpitations. Creatinine 1.35. 05/31/2018 , Short of breath at rest. Left arm negative for DVT, bilateral lower extremities negative for DVT, with some subcutaneous edema in the popliteal regions. Barium enema reported. No abdominal narrowing, severely distended colon, marketed air distention with no evidence of obstruction or volvulus, severe colonic ileus. Passing minimal flatus, two small bowel movements. Abdominal x-ray reporting extensive large bowel gas consistent with generalized ileus, no free air, no change. Surgery recommending colonoscopy for decompression, tomorrow. A. fib with paroximal rapid ventricular rate .Continues on Cardizem drip. Diuresing on Lasix IV. Creatinine improving, 1.25. Potassium 3.4, receiving supplementation. Coumadin held, INR 3.2. 06/01/2018. Maintained on Cardizem drip, atrial fibrillation, controlled currently. Potassium 3.2, receiving supplementation. INR 2.9, scheduled for decompression colonoscopy today as recommended by surgery.NPO. Creatinine 1.28. Denies chest pain, palpitations. 06/02/2018 underwent decompression colonoscopy yesterday, tolerated well. Sitting up in chair, abdomen mildly softer, still firm. Passing flatus. Tolerating oral diet with no nausea vomiting or diarrhea. Denies abdominal pain. Continues on Cardizem drip, IV Lasix.diuresing well with 24-hour I&O reflecting a negative fluid balance. Receiving potassium supplements with potassium up to 3.3. Inr 2.4. 06/03/2018 abdomen remains firm, distended. Denies abdominal pain. No flatus, no bowel movement. Diet backed down to clears. Minimal burping. Renal function worsening, creatinine 1.36. INR 1.7. 06/07/2018 tolerated clear liquids, loose bowel movements. Maintained on Lasix IV push. Creatinine trending up. Telemetry atrial fibrillation with heart rates in the 120s. Denies any chest pain, palpitations. 06/08/2018 Abdomen distended, firm. tolerating clear liquid diet with no nausea vomiting. loose Bowel movements. Abdominal x-ray of yesterday, reporting distended loops of colon similar to prior exam, correlate to exclude obstruction, possible ileus, no pneumoperitoneum. Telemetry atrial fibrillation with heart rates up into the 120s. Cardizem added to medication regime as per cardiology .Ambulating in hallway with significant other. Electrolytes are being supplemented as per replacement protocol. Afebrile, elevated WBC. 06/09/2018 S/P repeat decompression colonoscopy this morning, abdomen softer. INR 6.9, vitamin K administered. Receiving potassium and magnesium supplements , potassium 2.9, magnesium 1.7. Creatinine 1.96, Lasix converted to oral. WBC 10.9. Afebrile. 06/10 2018 Abdomen distended about the same, minimally softer, passing flatus, positive bowel movement. WBC 8.9, hemoglobin 13.5, INR 2.9. Receiving potassium supplementation for potassium 3.3. Creatinine 1.96. Afebrile. Occasional mild tachycardia, heart rate in the low 100s. Evaluated by GI and nephrology with recommendations noted. Objective - Vital Signs Vital signs: Vital Signs Temp 97.4 F L 06/10/18 12:00 Pulse 88 06/10/18 12:00 Resp 20 06/10/18 12:00 BP 87/56 06/10/18 12:00 Pulse Ox 94 L 06/10/18 12:00 Intake & Output 06/09/18 06/10/18 06/10/18 18:59 06:59 18:59 Intake Total 510 358 Output Total 425 200 Balance 85 -200 358 Weight 111.8 kg 111.8 kg Intake: IV 150 Oral 360 358 Output: Urine 425 200 Other: Voiding Method Indwelling Catheter Indwelling Catheter Indwelling Catheter # Bowel Movements 1 1 - Exam PHYSICAL EXAM: VITAL SIGNS: As above GENERAL: Sitting up in chair, no acute distress HEENT: Conjunctivae normal. eyes normal. Oral mucosa moist NECK: No JVD. No thyroid enlargement. No LNs CARDIOVASCULAR: S1, S2 muffled. Regular, No murmur RESPIRATION: Breath sounds diminished in the bases. No rhonchi ABDOMEN: Distended, softer, nontender.Hypoactive bowel sounds No guarding. no masses palpable. EXTREMITIES: Positive edema, positive pulses PSYCHIATRY: Alert and oriented -3, mood and affect normal. NERVOUS SYSTEM: Cranial N 2-12 grossly normal. Moves all 4 limbs. Diffuse weakness No focal deficits. - Labs CBC & Chem 7: 06/10/18 03:40 06/10/18 13:24 Labs: Abnormal Lab Results - Last 24 Hours (Table) 06/10/18 06/10/18 06/10/18 Range/Units 03:40 03:40 03:40 RBC 4.08 L (4.30-5.90) m/uL Lymphocytes # 0.9 L (1.0-4.8) k/uL PT 27.6 H (9.0-12.0) sec INR 2.9 H (<1.2) Potassium 3.3 L (3.5-5.1) mmol/L Carbon Dioxide 20 L (22-30) mmol/L BUN 43 H (9-20) mg/dL Creatinine 1.96 H (0.66-1.25) mg/dL Glucose 107 H (74-99) mg/dL Assessment and Plan Assessment: -Acute on Chronic CHF, systolic dysfunction -Cardiomyopathy EF 30-35% -Chest pain, possible acute non-STEMI with troponin 0.064 -Abdominal distention with colonic ileus, status post decompression colonoscopy 2 -Chronic persistent atrial fibrillation -.Acute on chronic renal failure, stage III -History of paralytic ileus -Coumadin monitoring -Recent stroke with residual left-sided weakness -CAD, history of CABG -Hyperlipidemia - hypertension -.Hypokalemia secondary to diuresis -Hypomagnesemia -Hypercoagulopathy -Urinary retention Plan: Continue on current medication regime ,monitoring and symptomatic treatment.Daily PT/INRs. Close monitoring of electrolytes and renal function with repeat labs ordered for a.m. continue monitoring overnight with potential DC in a.m. if patient remains stable. Both patient and spouse requesting discharge. Discharge being discussed with both general surgery and cardiology. The impression and plan of care has been dictated as directed. : I performed a history and examination of this patient, discussed the same with the dictator. I agree with the dictator's note ,documented as a scribe. Any additional findings or plans will be noted.
[2018-06-10] MEDS: LOSARTAN 25 MG TAB PO SCH (21:55)
[2018-06-11] MEDS: METOCLOPRAMIDE 5 MG/ML 2 ML VIAL IVP SCH ×2 (03:45→08:53)
[2018-06-11] MEDS: IPRATROPIUM-ALBUTEROL 3 ML NEB INHALATION SCH ×2 (07:34→11:25)
[2018-06-11 07:35] LABS: Basophils % (A) 0 %; Eosinophils # (A) 0.4 k/uL (0-0.7); Eosinophils % (A) 5 %; HCT 36.9 % (39.0-53.0); HGB 12.4 gm/dL (13.0-17.5); Lymphocytes # (A) 0.9 k/uL (1.0-4.8); Lymphocytes % (A) 12 %; MCH 32.6 pg (25.0-35.0); MCHC 33.6 g/dL (31.0-37.0); MCV 97.3 fL (80.0-100.0); Mean Platelet Volume 7.9; Monocytes # (A) 0.7 k/uL (0-1.0); Monocytes % (A) 9 %; Neutrophils # (A) 5.5 k/uL (1.3-7.7); Neutrophils % (A) 72 %; Platelet Count 163 k/uL (150-450); WBC 7.7 k/uL (3.8-10.6)
[2018-06-11 07:51] LABS: Calcium 9.1 mg/dL (8.4-10.2); Potassium 3.1 mmol/L (3.5-5.1)
[2018-06-11 08:06] LABS: INR 1.6 (<1.2); Prothrombin Time 15.6 sec (9.0-12.0)
[2018-06-11 08:24] VITALS: RESP 18; TEMP 98.1
[2018-06-11] MEDS: DILTIAZEM ORAL 30 MG TAB PO SCH ×2 (08:52→16:24)
[2018-06-11] MEDS: METOPROLOL TARTRATE 25 MG TAB PO SCH ×2 (08:52→16:24)
[2018-06-11] MEDS: SPIRONOLACTONE 25 MG TAB PO SCH (08:52)
[2018-06-11] MEDS: MULTIVITAMINS, THERA 1 EACH TAB PO SCH (08:52)
[2018-06-11] MEDS: VIT A,C & E-LUTEIN-MINERALS 1 EACH TAB PO SCH (08:53)
[2018-06-11] MEDS: FUROSEMIDE 40 MG TAB PO SCH (08:53)
[2018-06-11] MEDS: ASPIRIN 81 MG PO SCH (08:53)
[2018-06-11] MEDS: LATANOPROST 0.005% OPHTH DROPS 2.5 ML BTL BOTH EYES SCH (08:53)
[2018-06-11] MEDS: PRAVASTATIN SODIUM 40 MG TAB PO SCH (08:53)
[2018-06-11] MEDS: POTASSIUM CHLORIDE ER 20 MEQ TAB.ER PO SCH (08:53)
[2018-06-11] MEDS ORDERED: POTASSIUM CHLORIDE ER 20 MEQ TAB.ER PO STA ×2 (10:37→10:40)
--- NOTE | 2018-06-11 10:41 | P.PN ---
Subjective Patient is seen in follow-up for acute kidney injury. Baseline creatinine is near 1. Renal function worse today with creatinine up to 2.16. Currently sitting up in chair. Denies chest pain or shortness of breath. His diet has been advanced as of this morning. He has a Littlejohn catheter in place for urinary retention. Urine output is good. Currently maintained on Lasix 40 mg twice daily. Patient has systolic CHF with ejection fraction of 30-35%. Vital signs are stable. General: The patient appeared well nourished and normally developed. HEENT: Head exam is unremarkable. Neck is without jugular venous distension. LUNGS: Lungs are clear to auscultation and percussion. Breath sounds decreased. HEART: Rate and Rhythm are regular. First and second heart sounds normal. No murmurs, rubs or gallops. ABDOMEN: Abdominal exam reveals normal bowel sounds. Non-tender and non- distended. No evidence of peritonitis. EXTREMITITES: 1+ edema. Objective - Vital Signs Vital signs: Vital Signs Temp 98.1 F 06/11/18 08:00 Pulse 83 06/11/18 08:00 Resp 18 06/11/18 08:00 BP 106/70 06/11/18 08:00 Pulse Ox 94 L 06/11/18 08:00 Intake & Output 06/10/18 06/11/18 06/11/18 18:59 06:59 18:59 Intake Total 1233 100 240 Output Total 400 Balance 1233 -300 240 Weight 111.8 kg Intake: Oral 1233 100 240 Output: Urine 400 Other: Voiding Method Indwelling Catheter Indwelling Catheter Indwelling Catheter # Voids 1 # Bowel Movements 1 1 - Labs CBC & Chem 7: 06/11/18 06:36 06/11/18 06:36 Labs: Abnormal Lab Results - Last 24 Hours (Table) 06/11/18 06/11/18 06/11/18 Range/Units 06:36 06:36 06:36 RBC 3.80 L (4.30-5.90) m/uL Hgb 12.4 L (13.0-17.5) gm/dL Hct 36.9 L (39.0-53.0) % Lymphocytes # 0.9 L (1.0-4.8) k/uL PT 15.6 H (9.0-12.0) sec INR 1.6 H (<1.2) Potassium 3.1 L (3.5-5.1) mmol/L Chloride 108 H (98-107) mmol/L Carbon Dioxide 21 L (22-30) mmol/L BUN 46 H (9-20) mg/dL Creatinine 2.16 H (0.66-1.25) mg/dL Assessment and Plan Plan: Assessment: 1. Nonoliguric acute kidney injury mostly prerenal secondary to diuresis. Creatinine 2.16 today. 2. Hypokalemia secondary to diuresis. 3. Metabolic acidosis secondary to acute kidney injury. 4. Volume overload. Improved. 5. Urinary retention. Currently has a Littlejohn catheter. 6. Systolic CHF with ejection fraction of 30-35%. 7. Ileus. Surgery following. Diet has been advanced. Plan: Decrease Lasix to 40 mg orally once daily. Maintain potassium supplementation. Additional 20 mEq of potassium today. Add oral bicarb. Continue to monitor renal function and urine output. Potential discharge today. Repeat blood work in 2-3 days postdischarge. Follow up outpatient in the next 1-2 weeks.
[2018-06-11] MEDS ORDERED: SODIUM BICARBONATE TAB 650 MG TAB PO SCH (10:45)
[2018-06-11 11:43] VITALS: BP 106/66; PULSE 65
--- NOTE | 2018-06-11 13:20 | P.DS ---
Providers Date of admission: 05/28/18 17:11 Attending physician: Lizette Leiva Consults: 06/01/18 18:26 Consult Physician Routine Consulting Provider: Mahin Mix Consult Reason/Comments: Urinary retention Do you want consulting provider notified?: Yes, Notify in am 06/09/18 19:26 Consult Physician Routine Consulting Provider: Alec Seymour Consult Reason/Comments: functional obstruction Do you want consulting provider notified?: Yes 06/09/18 21:41 Consult Physician Routine Consulting Provider: Miriam Skelton Consult Reason/Comments: renal failure Do you want consulting provider notified?: Yes 05/28/18 17:09 Consult Physician Routine Consulting Provider: aVn Madrid Consult Reason/Comments: afib,known Do you want consulting provider notified?: Yes 05/29/18 14:32 Consult Physician Routine Consulting Provider: Jose Luis Britt Consult Reason/Comments: abdominal distention/ileus? Do you want consulting provider notified?: Yes Primary care physician: Stated None Hospital Course: 83-year-old gentleman admitted with acute CHF exacerbation, chest pain, possible acute non-STEMI, abdominal distention with colonic ileus, acute on chronic renal failure and multiple other medical issues. Telemetry reporting atrial fibrillation, rate better controlled. Maintained on Cardizem drip. INR 3.3. Diuresing well on Lasix IV push with 24-hour I&O reflecting a negative fluid balance. Significant edema of left upper and bilateral lower extremities , Dopplers ordered.Echo suboptimal, reporting moderately severe impaired LV function, EF between 30 and 35% lateral and apical hypokinesis, mild to moderate mitral regurgitation aortic root borderline dilated up to 3.8 cm. , significantly distended abdomen, ileus. Evaluated by surgery with barium enema recommended . Denies chest pain, palpitations. Creatinine 1.35. 05/31/2018 , Short of breath at rest. Left arm negative for DVT, bilateral lower extremities negative for DVT, with some subcutaneous edema in the popliteal regions. Barium enema reported. No abdominal narrowing, severely distended colon, marketed air distention with no evidence of obstruction or volvulus, severe colonic ileus. Passing minimal flatus, two small bowel movements. Abdominal x-ray reporting extensive large bowel gas consistent with generalized ileus, no free air, no change. Surgery recommending colonoscopy for decompression, tomorrow. A. fib with paroximal rapid ventricular rate .Continues on Cardizem drip. Diuresing on Lasix IV. Creatinine improving, 1.25. Potassium 3.4, receiving supplementation. Coumadin held, INR 3.2. 06/01/2018. Maintained on Cardizem drip, atrial fibrillation, controlled currently. Potassium 3.2, receiving supplementation. INR 2.9, scheduled for decompression colonoscopy today as recommended by surgery.NPO. Creatinine 1.28. Denies chest pain, palpitations. 06/02/2018 underwent decompression colonoscopy yesterday, tolerated well. Sitting up in chair, abdomen mildly softer, still firm. Passing flatus. Tolerating oral diet with no nausea vomiting or diarrhea. Denies abdominal pain. Continues on Cardizem drip, IV Lasix.diuresing well with 24-hour I&O reflecting a negative fluid balance. Receiving potassium supplements with potassium up to 3.3. Inr 2.4. 06/03/2018 abdomen remains firm, distended. Denies abdominal pain. No flatus, no bowel movement. Diet backed down to clears. Minimal burping. Renal function worsening, creatinine 1.36. INR 1.7. 06/07/2018 tolerated clear liquids, loose bowel movements. Maintained on Lasix IV push. Creatinine trending up. Telemetry atrial fibrillation with heart rates in the 120s. Denies any chest pain, palpitations. 06/08/2018 Abdomen distended, firm. tolerating clear liquid diet with no nausea vomiting. loose Bowel movements. Abdominal x-ray of yesterday, reporting distended loops of colon similar to prior exam, correlate to exclude obstruction, possible ileus, no pneumoperitoneum. Telemetry atrial fibrillation with heart rates up into the 120s. Cardizem added to medication regime as per cardiology .Ambulating in hallway with significant other. Electrolytes are being supplemented as per replacement protocol. Afebrile, elevated WBC. 06/09/2018 S/P repeat decompression colonoscopy this morning, abdomen softer. INR 6.9, vitamin K administered. Receiving potassium and magnesium supplements , potassium 2.9, magnesium 1.7. Creatinine 1.96, Lasix converted to oral. WBC 10.9. Afebrile. 06/10 2018 Abdomen distended about the same, minimally softer, passing flatus, positive bowel movement. WBC 8.9, hemoglobin 13.5, INR 2.9. Receiving potassium supplementation for potassium 3.3. Creatinine 1.96. Afebrile. Occasional mild tachycardia, heart rate in the low 100s. Evaluated by GI and nephrology with recommendations noted. 06/11/2018 Patient had abdominal distention which improved today after passing status. Patient remains on calcium dena which can contribute to abdominal distention. But then not too many choices (for his atrial fibrillation. Patient is on maximal doses of beta dena is on low-dose of Cardizem oral. Cutting down the dose of Coumadin because of suprapubic INR yesterday which has come down now. Patient has a Littlejohn catheter was discrete a Littlejohn catheter and see if patient can urinate by himself once we are done with that evaluation patient will be discharged today if patient is unable to urinate will put the Littlejohn catheter back in and we'll refer him to urology. Discussed with cardiology and gastroenterology today. PHYSICAL EXAMINATION: GENERAL: The patient is alert and oriented x3, not in any acute distress. Well developed, well nourished. HEENT: Pupils are round and equally reacting to light. EOMI. No scleral icterus. No conjunctival pallor. Normocephalic, atraumatic. No pharyngeal erythema. No thyromegaly. CARDIOVASCULAR: S1 and S2 present. No murmurs, rubs, or gallops. PULMONARY: Chest is clear to auscultation, no wheezing or crackles. ABDOMEN: Still be distended but improved after bowel movement. normoactive bowel sounds. No palpable organomegaly. MUSCULOSKELETAL: No joint swelling or deformity. EXTREMITIES: No cyanosis, clubbing, or pedal edema. NEUROLOGICAL: Gross neurological examination did not reveal any focal deficits. SKIN: No rashes. Assessment and Plan Assessment: -Acute on Chronic CHF, systolic dysfunction with acute exacerbation presently euvolemic -Atrial fibrillation: Presently rate controlled patient will be resumed on anticoagulation at 5 mg patient was supratherapeutic with 7.5 mg of Coumadin and repeat the INR in 3 days. -Cardiomyopathy EF 30-35% and discussed with cardiology regarding Cardizem because of his a poor ejection fraction as there are not too many choices cardiology is okay with continue Cardizem at lower dose. -Chest pain, possible acute non-STEMI with troponin 0.064 -Abdominal distention with colonic ileus, status post decompression colonoscopy 2 -Chronic persistent atrial fibrillation -.Acute on chronic renal failure, stage III, patient will be discharged on 40 mg of Lasix discussed with nephrology -Coumadin monitoring -Recent stroke with residual left-sided weakness -CAD, history of CABG -Hyperlipidemia - hypertension -.Hypokalemia secondary to diuresis as well as supplemented and the carton and can supply supervisor 110 mg of potassium -Hypomagnesemia -Urinary retention Littlejohn catheter will be removed and monitor today for 4 hours if he is still retaining over the Littlejohn catheter back in and patient will follow -up with urology as an outpatient Patient Condition at Discharge: Fair Plan - Discharge Summary Discharge Rx Participant: No New Discharge Prescriptions: New Diltiazem Oral [Cardizem*] 30 mg PO TID #90 tab Metoprolol Tartrate [Lopressor] 75 mg PO TID #90 tab Sodium Bicarbonate Tab 650 mg PO BID #60 tab Warfarin [Coumadin] 5 mg PO DAILY #30 tab Continue Pravastatin Sodium [Pravachol] 40 mg PO DAILY Aspirin EC [Ecotrin Low Dose] 81 mg PO DAILY Furosemide [Lasix] 40 mg PO DAILY Meclizine [Antivert] 25 mg PO TID PRN #0 tab PRN Reason: dizziness Nitroglycerin Sl Tabs [Nitrostat] 0.4 mg SUBLINGUAL Q5M PRN PRN Reason: Angina Spironolactone [Aldactone] 25 mg PO DAILY Vit C/E/Zn/Coppr/Lutein/Zeaxan [Preservision Areds 2 Softgel] 1 cap PO DAILY Multivitamins, Thera [Multivitamin (formulary)] 1 tab PO DAILY Travoprost [Travatan Z 0.004%] 1 drop BOTH EYES DAILY Changed Potassium Chloride ER [K-Dur 20] 10 meq PO DAILY #0 Discontinued Metoprolol Tartrate [Lopressor] 50 mg PO DAILY Isosorbide Mononitrate ER [Imdur] 60 mg PO DAILY Warfarin [Coumadin] 7.5 mg PO DAILY Losartan [Cozaar] 25 mg PO DAILY Discharge Medication List Aspirin EC [Ecotrin Low Dose] 81 mg PO DAILY 01/15/16 [History] Furosemide [Lasix] 40 mg PO DAILY 01/15/16 [History] Pravastatin Sodium [Pravachol] 40 mg PO DAILY 01/15/16 [History] Meclizine [Antivert] 25 mg PO TID PRN #0 tab 01/16/16 [Rx] Nitroglycerin Sl Tabs [Nitrostat] 0.4 mg SUBLINGUAL Q5M PRN 02/08/17 [History] Spironolactone [Aldactone] 25 mg PO DAILY 02/08/17 [History] Multivitamins, Thera [Multivitamin (formulary)] 1 tab PO DAILY 05/28/18 [History ] Travoprost [Travatan Z 0.004%] 1 drop BOTH EYES DAILY 05/28/18 [History] Vit C/E/Zn/Coppr/Lutein/Zeaxan [Preservision Areds 2 Softgel] 1 cap PO DAILY [History] Diltiazem Oral [Cardizem*] 30 mg PO TID #90 tab 06/11/18 [Rx] Metoprolol Tartrate [Lopressor] 75 mg PO TID #90 tab 06/11/18 [Rx] Potassium Chloride ER [K-Dur 20] 10 meq PO DAILY #0 06/11/18 [Rx] Sodium Bicarbonate Tab 650 mg PO BID #60 tab 06/11/18 [Rx] Warfarin [Coumadin] 5 mg PO DAILY #30 tab 06/11/18 [Rx] Follow up Appointment(s)/Referral(s): Van Madrid MD [STAFF PHYSICIAN] - 2 Weeks (Please make appointment when office is open) Haider Burnett MD [STAFF PHYSICIAN] - 06/23/18 10:40 am [facility], [NON-STAFF] - 1 Week Jose Luis Britt MD [STAFF PHYSICIAN] - 1 Week (Please make appointment when office is open) Ambulatory/Diagnostic Orders: Basic Metabolic Panel [LAB.AMB] Time Frame: 3 Days, Location: None Selected Prothrombin Time INR [LAB.AMB] Time Frame: 3 Days, Location: None Selected Patient Instructions/Handouts: Heart Failure (DC), A-fib (Atrial Fibrillation) (DC), Ileus (DC) Discharge Disposition: HOME WITH HOME HEALTH SERVICES
--- NOTE | 2018-06-11 13:36 | P.PN ---
Subjective This is an 83-year-old male past medical history significant for chronic persistent atrial fibrillation he presented to the hospital with an ileus and abdominal distention. He underwent a decompressive colonoscopies directed by . He is currently maintained on Cardizem 30 mg 3 times a day and Lopressor 75 mg 3 times a day. He states he is feeling much better however he still complains of mild abdominal distention. He denies symptoms of chest discomfort, shortness of breath, palpitations or dizziness. Blood pressure 106/ 66 heart rate 65 afebrile maintaining oxygen saturation on room air. Laboratory data reviewed, hemoglobin 12.4, platelets 163, INR 1.6, sodium 138, potassium 3.1, creatinine 2.16. GENERAL: Well-appearing, well-nourished and in no acute distress. NECK: Supple without JVD or thyromegaly. LUNGS: Breath sounds clear to auscultation bilaterally. Respiration equal and unlabored. No wheezes, rales or rhonchi. HEART: Irregular rate and rhythm without murmurs, rubs or gallops. S1 and S2 heard. EXTREMITIES: Normal range of motion, no edema. No clubbing or cyanosis. Peripheral pulses intact. ASSESSMENT Chronic persistent atrial fibrillation on long-term anticoagulation with Coumadin Supratherapeutic INR, resolved Chronic ileus with abdominal distention Hypokalemia PLAN Resume Coumadin tonight. Continue with Cardizem and Lopressor at new doses. Stable from a cardiac perspective. Follow-up with Dr. Madrid upon discharge. The above impression and plan of care have been discussed and directed by the signing physician. Scarlett Lozano, nurse practitioner, acting as scribe for signing physician. Objective - Vital Signs Vital signs: Vital Signs Temp 98.1 F 06/11/18 11:42 Pulse 65 06/11/18 11:42 Resp 18 06/11/18 11:42 BP 106/66 06/11/18 11:42 Pulse Ox 100 06/11/18 11:42 Intake & Output 06/10/18 06/11/18 06/11/18 18:59 06:59 18:59 Intake Total 1233 100 240 Output Total 400 400 Balance 1233 -300 -160 Weight 111.8 kg Intake: Oral 1233 100 240 Output: Urine 400 400 Uretheral (Littlejohn) 400 Other: Voiding Method Indwelling Catheter Indwelling Catheter Indwelling Catheter # Voids 1 # Bowel Movements 1 1 - Labs CBC & Chem 7: 06/11/18 06:36 06/11/18 06:36 Labs: Abnormal Lab Results - Last 24 Hours (Table) 06/11/18 06/11/18 06/11/18 Range/Units 06:36 06:36 06:36 RBC 3.80 L (4.30-5.90) m/uL Hgb 12.4 L (13.0-17.5) gm/dL Hct 36.9 L (39.0-53.0) % Lymphocytes # 0.9 L (1.0-4.8) k/uL PT 15.6 H (9.0-12.0) sec INR 1.6 H (<1.2) Potassium 3.1 L (3.5-5.1) mmol/L Chloride 108 H (98-107) mmol/L Carbon Dioxide 21 L (22-30) mmol/L BUN 46 H (9-20) mg/dL Creatinine 2.16 H (0.66-1.25) mg/dL
[2018-06-12] MEDS ORDERED: FUROSEMIDE 40 MG TAB PO SCH (09:00)
== END 2018-06-11 16:42 | disposition home health service (06) | DRG 280 ==
LOC: EC 16:04 → 3SCARD 17:11
PROVIDERS: ADMIT Hospitalist; ATTEND Hospitalist
PROC: 0D7L8ZZ Dilation of Transverse Colon, Via Natural or Artificial Opening Endoscopic (ICD-10-PCS; principal; 2018-06-01 08:30)
PROC: 0D7L8ZZ Dilation of Transverse Colon, Via Natural or Artificial Opening Endoscopic (ICD-10-PCS; 2018-06-09)
DX: I13.0 Hypertensive heart and chronic kidney disease with heart failure and stage 1 through stage 4 chronic kidney disease, or unspecified chronic kidney disease (principal); I21.4 Non-ST elevation (NSTEMI) myocardial infarction; I50.23 Acute on chronic systolic (congestive) heart failure; D68.9 Coagulation defect, unspecified; E87.2 Acidosis; I48.1 Persistent atrial fibrillation; I69.354 Hemiplegia and hemiparesis following cerebral infarction affecting left non-dominant side; K56.7 Ileus, unspecified; N17.9 Acute kidney failure, unspecified; Z85.46 Personal history of malignant neoplasm of prostate; T45.515A Adverse effect of anticoagulants, initial encounter; E66.01 Morbid (severe) obesity due to excess calories; E78.5 Hyperlipidemia, unspecified; E83.42 Hypomagnesemia; E87.6 Hypokalemia; F32.9 Major depressive disorder, single episode, unspecified; F41.9 Anxiety disorder, unspecified; I25.10 Atherosclerotic heart disease of native coronary artery without angina pectoris; I25.2 Old myocardial infarction; I25.5 Ischemic cardiomyopathy; I34.0 Nonrheumatic mitral (valve) insufficiency; I48.2 Chronic atrial fibrillation; N18.3 Chronic kidney disease, stage 3 (moderate); N40.0 Benign prostatic hyperplasia without lower urinary tract symptoms; N50.89 Other specified disorders of the male genital organs; T50.2X5A Adverse effect of carbonic-anhydrase inhibitors, benzothiadiazides and other diuretics, initial encounter; Z68.35 Body mass index [BMI] 35.0-35.9, adult; Z79.01 Long term (current) use of anticoagulants; Z79.82 Long term (current) use of aspirin; Z79.899 Other long term (current) drug therapy; Z82.49 Family history of ischemic heart disease and other diseases of the circulatory system; Z87.891 Personal history of nicotine dependence; Z95.1 Presence of aortocoronary bypass graft; Z95.5 Presence of coronary angioplasty implant and graft; K63.5 Polyp of colon; Z88.5 Allergy status to narcotic agent; Z88.2 Allergy status to sulfonamides
CPT/HCPCS: 36415; 45393; 71046; 71250; 74018; 74019; 74021; 74176; 74270; 80048; 80053; 81001; 82550; 82553; 83735; 83880; 84132; 84443; 84484; 85025; 85027; 85610; 85730; 93005; 93306; 93970; 94640; 96365; 96376; 99291

== ENCOUNTER → 2018-06-14 | Outpatient (CLI) | payer OTHER, MEDICARE ==
[2018-06-14 08:53] LABS: INR 1.5 (<1.2)
[2018-06-14 17:19] LABS: Anion Gap 12.4 mmol/L (4.00-12.00); Calcium 9.3 mg/dL (8.7-10.3); Carbon Dioxide 23.6 mmol/L (21.6-31.8); Potassium 3.8 mmol/L (3.5-5.5)
== END | disposition home or self-care (01) ==
LOC: LABWHC1 08:03
PROVIDERS: ATTEND Internal Medicine
DX: I13.0 Hypertensive heart and chronic kidney disease with heart failure and stage 1 through stage 4 chronic kidney disease, or unspecified chronic kidney disease (principal); I50.23 Acute on chronic systolic (congestive) heart failure; Z51.81 Encounter for therapeutic drug level monitoring; Z79.01 Long term (current) use of anticoagulants
CPT/HCPCS: 36415; 80048; 85610